=== PATIENT | female | born 1945 | race Caucasian/White ===

== ENCOUNTER 2017-08-11 00:02 | Inpatient (IN) | payer MEDICARE, OTHER ==
[2017-08-11] MEDS ORDERED: NS 0.9% 1000 ML* 1,000 ML IV ONE (01:25)
[2017-08-11 01:48] LABS: ABS Basophils 0.1 10^3/ul (0-0.2); ABS Eosinophils 0.1 10^3/ul (0-0.6); ABS Monocytes 0.8 10^3/ul (0-0.8); ABS Neutrophils 9.4 10^3/ul (1.5-7.7); ABS Nucleated RBC 0 10^3/ul; Eosinophil % 1.2 % (0-6); Hematocrit 46 % (35-47); Hemoglobin 15.2 g/dl (12.0-16.0); Lymphocyte % 15.8 % (25-47); Mean Corpuscular HGB Conc 33 g/dl (31-36); Mean Corpuscular Hemoglobin 28 pg (27-31); Mean Corpuscular Volume 85 fL (80-97); Mean Platelet Volume 9 um3 (7.4-10.4); Nucleated Red Blood Cells % 0.2; Platelet Count 385 10^3/ul (150-450); Red Blood Count 5.46 10^6/ul (4.0-5.4); Red Cell Distribution Width 15 % (10.5-15); White Blood Count 12.4 10^3/ul (3.5-10.8)
[2017-08-11 01:58] LABS: EGFR Non-African American 58.3 (>60)
[2017-08-11] MEDS ORDERED: Clindamycin 600 MG IVPREMIX(* 600 MG/50 ML SDV IV ONE (02:08)
[2017-08-11] MEDS ORDERED: Senna TAB PO PRN (03:27)
[2017-08-11] MEDS ORDERED: Al Hydrox/Mg Hydrox/Simet LIQ* 30 ML UDC PO PRN (03:27)
[2017-08-11] MEDS ORDERED: Docusate CAP* 100 MG PO PRN (03:27)
[2017-08-11] MEDS ORDERED: Ondansetron INJ* 2 MG/ML VIAL IV PRN (03:27)
[2017-08-11] MEDS ORDERED: Acetaminophen TAB* 325 MG PO PRN (03:27)
[2017-08-11] MEDS ORDERED: oxyCODONE/Acetamin 5/325 MG* TAB PO PRN (03:27)
[2017-08-11] MEDS ORDERED: NS 0.9% 1000 ML* 1,000 ML IV SCH (03:30)
[2017-08-11] MEDS ORDERED: Dextrose 50% Syringe 50 ML* 25 GM/50 ML SYRINGE IV PUSH PRN ×2 (03:32→11:38)
[2017-08-11] MEDS ORDERED: Insulin GLARGINE(*) 1 UNITS UNIT SUBCUT SCH (04:00)
[2017-08-11] MEDS ORDERED: Iodixanol* (CONTRAST) 320 MG/ML 100 ML SDV IV ONE (04:51)
--- NOTE | 2017-08-11 06:01 | HP ---
CC: Dr. Bhavya Saavedra * HISTORY AND PHYSICAL: DATE OF ADMISSION: 08/11/17 TIME OF EVALUATION: 0300. PRIMARY CARE PHYSICIAN: Bhavya Saavedra MD CHIEF COMPLAINT: Fall and unable to get up. HISTORY OF PRESENT ILLNESS: This is a 71-year-old female with a past medical history of diabetes, getting worked up for Parkinson's, who states she fell last Monday on the when she slid out of bed and she was unable to get up. She states that she has problems when she falls as she is not able to get up. She is not sure how she ended up here. She thinks her friends were checking on her and calling her and eventually the police broken and found her on the floor. When she arrived to the emergency room, she was covered in stool and urine and had multiple red broken down areas on her skin. She is complaining of shortness of breath. No chest pain. No nausea or vomiting. She said she had diarrhea earlier in the week and she states all her joints have very stiff diffusely. When asked why she uses a scooter and walker to ambulate, she states she is not sure; it has been going on for the past few weeks and the primary is working on for Parkinson's disease. In the emergency room, the patient had labs, EKG and was given 1 L of fluid and clindamycin 600 mg and was referred to the hospitalist service for further evaluation. PAST MEDICAL HISTORY: Diabetes. MEDICATIONS: The patient states she takes glipizide and metformin and not sure about her other medications. ALLERGIES: SULFA ANTIBIOTICS. FAMILY HISTORY: Reviewed and noncontributory. SOCIAL HISTORY: The patient lives alone. She ambulates with a walker and uses a scooter. No history of smoking, alcohol, or illicit drug use. Her healthcare proxy is her friend, Bijal Ibrahim, who is her friend. Code status is full code. REVIEW OF SYSTEMS: A 14-point review of systems as mentioned in the HPI, otherwise negative. PHYSICAL EXAMINATION GENERAL: No acute distress, noted belly breathing. VITAL SIGNS: Temp 97.1, pulse rate 118, respiratory rate 18, oxygen saturation 95% on room air, and blood pressure 145/90. HEENT: Head: Normocephalic. Pupils equal and reactive, anicteric. Oropharynx : Mucous membranes dry. NECK: Supple. No lymphadenopathy. RESPIRATORY: Diminished breath sounds. No wheezes, rhonchi, or rales. CARDIAC: Tachycardia. Soft systolic murmur heard throughout. ABDOMEN: Morbidly obese, soft, nondistended. EXTREMITIES: The patient with bilateral edema, erythema, and excoriated lesions bilaterally in lower extremity on her elbows, back of her thighs, and her abdomen. She also has significant erythema in her intertriginous areas under her breast and under her groin region. NEUROLOGIC: She is alert and oriented x3. She does have subtle weakness in her right upper and lower extremity. The patient with a noted resting tremor. LABORATORY DATA: White count 12.4, hemoglobin 15.2, hematocrit 46, platelets 385. Sodium 137, potassium 4.3, chloride 101, bicarb 24, BUN 33, creatinine 0.95 , lactate 2.6, glucose 335. CK is 300. RADIOGRAPHIC DATA: EKG shows sinus tachycardia with artifact with a baseline tremor. Head CT non-officially read, no obvious bleed on my exam, but significant atrophy noted. ASSESSMENT: This is a 71-year-old female with past medical history of diabetes , who presents to the emergency room after having a fall after sliding out of bed on the 6th, was unable to get up since then, was found to have multiple areas of skin breakdown likely cellulitis, shortness of breath, and some right- sided weakness. 1. Fall. Assessment: It appears the patient does have some debility using a walker and a scooter and has issues with getting up likely also due to her morbid obesity. I am concerned for possibility of stroke, also if she has developed a pulmonary emboli while lying there for several days, not mobile and she also has findings of lower extremity cellulitis with significant skin breakdown. Also waiting on a followup on her UA to check for urinary tract infection. Plan: We will admit her to telemetry. We will check CTA of the chest to rule out a pulmonary embolism and an MRI of the brain and I order PT/ OT. Discussed with the patient is likely going to need subacute rehab. We will start her on clindamycin for cellulitis coverage and follow up on her UA. Repeat labs including a CK and start her on nystatin as well. 2. Chronic medical problems. Diabetes. The patient is hyperglycemia here. We will give her another liter of fluid. Placed her on lispro and Lantus. Check a hemoglobin A1c on oral agents. 3. Do med rec and order prescriptions as indicated. 4. FEN and DVT prophylaxis. The patient's score is high risk. We will place her on heparin subcu t.i.d. We will switch her over to full anticoagulation if her CT is positive for pulmonary embolism. 5. Code status is full code. PATIENT TIME: Greater than 60 minutes spent doing the history and physical, more than half the time was spent in direct patient contact. [id number]/[facility] #: [id number] JOSE
[2017-08-11 06:45] LABS: INR 1.07 (0.77-1.02)
[2017-08-11] MEDS: NS 0.9% 1000 ML* 1,000 ML IV ONE ×2 (07:09→07:14)
--- NOTE | 2017-08-11 08:14 | RAD ---
INDICATION: Confusion. COMPARISON: There are no prior studies available for comparison. TECHNIQUE: Contiguous axial sections of the brain were obtained from the skull base to the vertex without contrast. FINDINGS: The ventricles are enlarged slightly out of portion to the cisterns and sulci although there is atrophy within the cisterns and sulci. These findings are likely secondary to atrophy although the possibility of normal pressure hydrocephalus cannot be excluded. There are small areas of decreased attenuation is present within the subcortical and periventricular white matter most consistent with chronic small vessel ischemic changes. No other focal abnormality or mass effect is seen. There is no evidence for hemorrhage. No significant focal osseous abnormality is seen. The visualized portion of the paranasal sinuses and mastoid air cells appear clear. IMPRESSION: 1. NO EVIDENCE FOR ACUTE FINDING. 2. ATROPHY AND FINDINGS CONSISTENT WITH CHRONIC SMALL VESSEL ISCHEMIC CHANGES. 3. VENTRICLES ENLARGED SLIGHTLY OUT OF PORTION TO THE CISTERNS AND SULCI RAISING THE POSSIBILITY OF NORMAL PRESSURE HYDROCEPHALUS. RECOMMEND CLINICAL CORRELATION.
--- NOTE | 2017-08-11 08:26 | RAD ---
Indication: Syncope, evaluate for pulmonary embolus. Contrast: Administered 96.3 ml of VISAPAQUE 320 mg/ml CTA of the chest was performed without IV contrast administration. Coronal and sagittal reconstructed images were obtained. The pulmonary arterial tree is well opacified. There are no filling defects present to suggest pulmonary embolus. Small pretracheal lymph nodes are noted. No hilar adenopathy is noted. The heart demonstrates no pericardial effusion. The pulmonary arterial tree is well opacified. There are no filling defects present to suggest pulmonary embolus. The distal pulmonary arteries are limited due to body habitus and motion artifact. The aorta demonstrates no evidence of aortic dissection. There is enlarged lower pole of the right lobe of the thyroid likely representing a nodule. Correlation with ultrasound may be helpful. The lung neal demonstrate no alveolar consolidation. No pleural fluid is identified. No pleural fluid is identified. The visualized abdominal organs demonstrates cholelithiasis. No biliary duct dilatation is noted. IMPRESSION: No definite pulmonary embolus is noted. No evidence of aortic dissection is present. Cholelithiasis without evidence of biliary duct dilatation.
[2017-08-11] MEDS: Heparin VIAL(*) 5000 UNITS/ML VIAL (FIVE THOUSAND) SUBCUT SCH ×3 (09:05→21:14)
[2017-08-11] MEDS: Insulin LISPRO* 1 UNITS UNIT SUBCUT SCH ×5 (10:10→21:47)
[2017-08-11 11:19] LABS: ABS Basophils 0.1 10^3/ul (0-0.2); ABS Eosinophils 0.1 10^3/ul (0-0.6); ABS Lymphocytes 2.2 10^3/ul (1.0-4.8); ABS Neutrophils 9.7 10^3/ul (1.5-7.7); ABS Nucleated RBC 0 10^3/ul; Eosinophil % 1.1 % (0-6); Hematocrit 40 % (35-47); Hemoglobin 13.2 g/dl (12.0-16.0); Lymphocyte % 16.8 % (25-47); Mean Corpuscular HGB Conc 33 g/dl (31-36); Mean Corpuscular Hemoglobin 28 pg (27-31); Mean Corpuscular Volume 85 fL (80-97); Mean Platelet Volume 9 um3 (7.4-10.4); Nucleated Red Blood Cells % 0.1; Platelet Count 336 10^3/ul (150-450); Red Blood Count 4.74 10^6/ul (4.0-5.4); Red Cell Distribution Width 15 % (10.5-15); White Blood Count 13.2 10^3/ul (3.5-10.8)
[2017-08-11] MEDS ORDERED: Metoprolol Tartrate IV* 1 MG/ML 5 ML VIAL IV PRN (11:37)
[2017-08-11 11:39] LABS: EGFR Non-African American 56.9 (>60)
[2017-08-11] MEDS ORDERED: Insulin LISPRO* 1 UNITS UNIT SUBCUT ONE (12:20)
[2017-08-11] MEDS: Clindamycin 600 MG IVPREMIX(* 600 MG/50 ML SDV IV SCH ×2 (12:22→18:59)
[2017-08-11] MEDS: Diltiazem TAB* 60 MG PO SCH ×2 (12:25→17:26)
--- NOTE | 2017-08-11 12:57 | RAD ---
INDICATION: Right shoulder injury. TECHNIQUE: 4 views of the right shoulder were obtained. FINDINGS: The bones are in normal alignment. No fracture is seen. There are small calcifications adjacent to the superior lateral aspect of the humeral head. There is mild to moderate osteoarthritic change in the acromioclavicular joint. IMPRESSION: NO EVIDENCE OF FRACTURE.
--- NOTE | 2017-08-11 13:10 | PN ---
Subjective Date of Service: 08/11/17 Interval History: Pt is a very vague historian. She states that she fell 6 days ago and spent the last 6 days at home on the floor not eating and drinking. Suspect the timeframe ma be different Pt c/o mobility issues and falls x 1 year, saw a neurologist in [place] who did not recommend any medication, but suspected Parkinson's. Pt still drives but admits to being forgetful. Objective Active Medications: Acetaminophen (Tylenol Tab*) 650 mg PO Q4H PRN PRN Reason: FEVER/PAIN Al Hydrox/Mg Hydrox/Simethicone (Maalox Plus*) 30 ml PO Q6H PRN PRN Reason: INDIGESTION Dextrose (D50w Syringe 50 Ml*) 12.5 gm IV PUSH .FOR FS < 60 - SS PRN PRN Reason: FS < 60 Dextrose (D50w Syringe 50 Ml*) 12.5 gm IV PUSH .FOR FS < 60 - SS PRN PRN Reason: FS < 60 Diltiazem HCl (Cardizem Tab*) 60 mg PO Q6HR [facility] Last Admin: 08/11/17 12:25 Dose: 60 mg Docusate Sodium (Colace Cap*) 100 mg PO BID PRN PRN Reason: CONSTIPATION Heparin Sodium (Porcine) (Heparin Vial(*)) 5,000 units SUBCUT Q8HR [facility] Last Admin: 08/11/17 09:05 Dose: Not Given Clindamycin HCl/Dextrose (Cleocin 600 Mg Ivpremix(*) Sdv) 600 mg in 50 mls @ 100 mls/hr IV Q8H [facility] Last Admin: 08/11/17 12:22 Dose: 100 mls/hr Insulin Glargine (Lantus(*)) 20 units SUBCUT Q24H [facility] Insulin Human Lispro (Humalog*) 0 units SUBCUT ACHS [facility] PRN Reason: Protocol Last Admin: 08/11/17 12:25 Dose: 15 units Metoprolol Tartrate (Lopressor Iv*) 5 mg IV Q6H PRN PRN Reason: HEART RATE/PULSE Nystatin (Nystatin Top Powder*) 1 applic TOPICAL TID [facility]ES[facility] Ondansetron HCl (Zofran Inj*) 4 mg IV Q4H PRN PRN Reason: NAUSEA/VOMITING Oxycodone/Acetaminophen (Percocet 5/325 Tab*) 1 tab PO Q4H PRN PRN Reason: Pain Senna (Senokot Tab*) 1 tab PO BID PRN PRN Reason: CONSTIPATION Vital Signs - 8 hr 08/11/17 08/11/17 08/11/17 05:15 07:28 08:00 Temperature 98.6 F 98.6 F Pulse Rate 125 124 Respiratory 18 18 18 Rate Blood Pressure 144/71 138/66 (mmHg) O2 Sat by Pulse 95 96 95 Oximetry 08/11/17 11:27 Temperature 99.3 F Pulse Rate 134 Respiratory 20 Rate Blood Pressure 145/68 (mmHg) O2 Sat by Pulse 93 Oximetry Oxygen Devices in Use Now: None Appearance: 71 yo F in nAD, AAOx2, doesn't know the exact date Eyes: No Scleral Icterus, PERRLA Ears/Nose/Mouth/Throat: NL Teeth, Lips, Gums, Mucous Membranes Moist Neck: NL Appearance and Movements; NL JVP, Trachea Midline Respiratory: Symmetrical Chest Expansion and Respiratory Effort, Clear to Auscultation Cardiovascular: NL Sounds; No Murmurs; No JVD, - - tachy, regular Abdominal: NL Sounds; No Tenderness; No Distention, No Hepatosplenomegaly Lymphatic: No Cervical Adenopathy Extremities: No Clubbing, Cyanosis, - - b/l pedal edema +1 Skin: No Nodules or Sclerosis, - - obrasions on b/l LE's, on r knee 5 cm obrasion covered with eschar with surrounding cellulitis. Sheree intertrigo in abd folds Neurological: NL Muscle Strength and Tone, - - limit in ROM in R shoulder due to pain, can abduct only to 60 degrees. [place] [facility] clear, CN2-12 - intact, wide and unsteady gait Result Diagrams: 08/11/17 11:04 08/11/17 11:04 Assess/Plan/Problems-Billing Assessment: 71 yo F with h/o obesity, recent falls (evaluation by neurology in 11/2016-doubted NPH, MRI also done at that time), HTN, DM2 presents after a fall with cellulitis. Pt notes that she had been unsteady forgetful, and incontinent of urine in the past several months. - Patient Problems (1) Falls Comment: Falls with incontinence and forgetfulness suggest NPH. CT brain questions NPH. Asked Dr. Kirti to see in consult cont PT/OT (2) DM2 (diabetes mellitus, type 2) Comment: Uncontrolled, at home on metformin and glipizide will cont Lantus and ISS for now. Restart glipizide in aM (3) Tachycardia Comment: ? A. flutter Echo pending will check another EKG Started Cardizem and Lopressor. At home was on ACEI only (4) Cellulitis of knee, right Comment: source is abrasion after a fall cont clindamycin (5) DVT prophylaxis Comment: HSQ Status and Disposition: inpatient
[2017-08-11] MEDS: Nystatin TOP POWDER* 15 GM BTL TOPICAL SCH ×3 (15:10→22:14)
[2017-08-11] MEDS: Insulin GLARGINE(*) 1 UNITS UNIT SUBCUT SCH (15:11)
[2017-08-11] MEDS: Citalopram TAB* 40 MG PO SCH (16:10)
--- NOTE | 2017-08-11 16:17 | RAD ---
Indication: Stroke. Sagittal and axial T1, axial T2, diffusion and susceptibility weighted images of the brain were obtained. Ventricular structures are midline. No midline shift is noted. There is central and cortical atrophy noted. No restriction of diffusion is noted. Paranasal sinuses are otherwise unremarkable. The orbits are unremarkable. Periventricular signal abnormalities are noted without restriction of diffusion. This is due to chronic ischemic White matter change. Susceptibility weighted images demonstrates no evidence of susceptibility weighted artifact. There is some minimal fluid in the ethmoid air cells. IMPRESSION: Chronic ischemic White matter change. Central and cortical atrophy. No restriction of diffusion is noted to suggest acute stroke.
--- NOTE | 2017-08-11 16:55 | ECHO ---
Patient: LOKESH MOCTEZUMA [facility] Rec#: [id number] : 1945 Date: 08/11/2017 Age: 71y Height: 162.6 cm / 64.0 in Weight: 109.3 kg / 240.9 lbs Sex: F BSA: 2.1 Room#: [facility] Admit Date#: 08/11/2017 Type: Inpatient Referring: Josie Howard MD Reading: George Aldana MD Surgical Asst: Nyasia Terry RN RDCS CC: Bhavya Saaverda MD Transthoracic Echocardiogram Indication: Tachycardia, systolic murmur BP: 138/66 HR: 113 Rhythm: Tachycardia Findings History: DM, HTN, morbid obesity Technical Comments: The study is technically limited due to patient body habitus. The study was technically limited due to the patient's inability to lay in the left lateral decubitus position. Completed at 1625. Left Ventricle: The left ventricular chamber size is decreased. Mild concentric left ventricular hypertrophy is observed. Global left ventricular wall motion and contractility are within normal limits. The left ventricle appears hyperdynamic. The estimated ejection fraction is greater than 65%. There is an E to A reversal in the mitral valve flow pattern suggestive of diastolic dysfunction. Left Atrium: The left atrial chamber size is normal. Right Ventricle: The right ventricular cavity size is normal. The right ventricular global systolic function is hyperdynamic. Right Atrium: The right atrium is mildly dilated. Aortic Valve: The aortic valve structure is not well visualized. The aortic valve leaflets are mildly thickened. There is no evidence of aortic regurgitation. There is no evidence of aortic stenosis. Mitral Valve: The mitral valve leaflets are mildly thickened. There is a trace of mitral regurgitation. Tricuspid Valve: The tricuspid valve structure is not well visualized. There is trace tricuspid regurgitation. Unable to estimate the right ventricular systolic pressure. Pulmonic Valve: The pulmonic valve structure is not well visualized. There is no evidence of pulmonic regurgitation. There is no pulmonic stenosis. Pericardium: There is no significant pericardial effusion. A pericardial fat pad is visualized. Aorta: The ascending aorta is not well visualized. There is no dilatation of the aortic arch. There is no dilation of the aortic root. Pulmonary Artery: The main pulmonary artery is not well visualized. Venous: The venous system is not well visualized. The inferior vena cava is not visualized. Conclusions The left ventricle appears hyperdynamic. The estimated ejection fraction is greater than 65%. Global left ventricular wall motion and contractility are within normal limits. The left ventricular chamber size is decreased. Mild concentric left ventricular hypertrophy is observed. There is an E to A reversal in the mitral valve flow pattern suggestive of diastolic dysfunction. The right ventricular global systolic function is hyperdynamic. The right atrium is mildly dilated. Functionally benign heart valves. There is no prior echocardiogram available to compare with at this time. Measurements Name Value Normal Range RVDdMajor (2D) 4.1 cm (2.2 - 4.4) RAd ISD 4CH 5.3 cm (3.4 - 4.9) RA (A4C)W 4.2 cm (2.9 - 4.6) IVSd (2D) 1.1 cm (0.6 - 1) LVPWd (2D) 1.1 cm (0.6 - 1) LVIDd (2D) 3.5 cm (3.6 - 5.4) Aortic Annulus 1.8 cm (1.4 - 2.6) Ao root diameter (2D) 3.3 cm (2.1 - 3.5) Aortic arch 2.7 cm (1.8 - 3.4) LA dimension (AP) 2D 2.6 cm (2.3 - 3.8) LAd ISD 4CH 5 cm (2.9 - 5.3) LA ISD 4CH W 4 cm (2.5 - 4.5) Name Value Normal Range MV E-wave Vmax 0.88 m/sec - MV deceleration time 233 msec - MV A-wave Vmax 1.2 m/sec - MV E:A ratio 0.7 ratio - LV septal e' Vmax 0.07 m/sec - LV lateral e' Vmax 0.08 m/sec - LV E:e' septal ratio 12.6 ratio - LV E:e' lateral ratio 11 ratio - Name Value Normal Range AV Vmax 1.8 m/sec - AV VTI 27.3 cm - AV peak gradient 13.4 mmHg - AV mean gradient 8.9 mmHg - LVOT Vmax 1.4 m/sec - LVOT VTI 17.4 cm - LVOT peak gradient 7.5 mmHg - LVOT mean gradient 3.5 mmHg - YVROSE Vmax 0.62 m/sec - Name Value Normal Range PV Vmax 0.73 m/sec -
[2017-08-11] MEDS: glipiZIDE TAB* 5 MG PO SCH (17:26)
[2017-08-11] MEDS: Carbidopa/Levodop 25/100 MG TAB(*) PO SCH (21:14)
[2017-08-12] MEDS: Diltiazem TAB* 60 MG PO SCH ×2 (00:26→05:42)
--- NOTE | 2017-08-12 01:30 | CONS ---
CC: Dr. Saavedra * CONSULTATION REPORT: DATE OF CONSULT: 08/11/17 LOCATION: She is an inpatient in room 450. REFERRING PHYSICIAN: Dr. Howard. CHIEF COMPLAINT: Falls, possible parkinsonism. HISTORY OF PRESENT ILLNESS: Guillermo Mustafa is a 71-year-old right-handed woman who was admitted late last night after she was found on the floor of her dwelling. She has had problems walking according to her friend, Shonda, for at least about 2 years. She had seen a neurologist in the [facility], according to Dr. Howard's conversation with Dr. Saavedra and also from the patient. Apparently Parkinson's disease and normal pressure hydrocephalus were both being considered as possibilities. She has never been tried on levodopa or other medicines specific for Parkinson's disease. She has been using a walker and I believe also a wheelchair for some length of time and has had problems with bladder control for about a year. She has decline in her cognition for about a year also according to her friend, Shonda. The patient denies headaches, change in vision, no problems with tremor. She has noticed to have head injuries, meningitis, intracranial hemorrhaging or stroke. PAST MEDICAL HISTORY: Notable for morbid obesity, diabetes, hypertension, hypothyroidism, chronic hip pain. FAMILY HISTORY: Negative for parkinsonism. REVIEW OF SYSTEMS: Negative for headaches, intestinal problems, change in vision, double vision, difficulty with speech. She does admit to some problems swallowing at times. She has not had any antipsychotic or antiemetic medication exposure that she is aware of. 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 She lives alone. She is a nonsmoker. She does not drink alcohol. PHYSICAL EXAM: She is morbidly obese and well-hydrated. Temperature most recently 99.3, temporally, blood pressure running 130 to 145 systolic/60 to 70 diastolic. Heart rate is about a 100 and seems regular, respiratory rate 20. Oxygen saturation is 93% on room air. She has abrasions on her right elbow and wound on her left and on both knees, worse on the right. There is tenderness to movement of the right knee. The legs are warm and somewhat red. Her heart is in a regular rhythm without murmurs. Carotid pulses are not felt but I do not hear any bruits. Oral mucosa is moist and atraumatic. Head is atraumatic. Neurologic Exam: Pupils react equally from 4 to 2 mm. Eye movements and visual neal are normal. Funduscopic exam reveals sharp discs bilaterally. Visual neal are full to confrontation. The patient's musculare is symmetric without hypomimia. Facial sensation to light touch is intact. Palate and tongue appear normal, the tongue protrudes weakly in the midline. Speech is soft but clear. Motor exam is hampered somewhat by pain on the right elbow and in the knees. There is no rigidity in the arms. As best as I can tell, there is no rigidity at least in the left leg although she guards the right one because of the discomfort. There is occasional mild low amplitude sustention tremor in the hands but there is no rest tremor. Finger taps are slow in both hands. I did not attempt to ambulate her. She could weakly raise her legs off the bed but not sustained on either side. Reflexes were absent although I did not test the right knee. Plantars were flexor bilaterally. Sensory exam is notable for mild vibratory loss in the feet and otherwise unremarkable. Mental status finds her to be mentally slow. She is a fair historian but seems to have difficulty recollecting historical details. She does not know all of her medications. Language is slow but fluent. DIAGNOSTIC STUDIES/LAB DATA: Laboratory studies included CT scan of the brain which I reviewed and it shows large ventricles. There is some atrophy but the ventricular enlargement seems out of proportion. She had an MRI of the brain and the interpretation of that is pending. It again reveals large ventricles, although the cerebral aqueduct is very thin and poorly seen. There is some apparent transependymal fluid and there is also some white matter changes consistent with chronic ischemic disease. There appears to be some hemosiderin deposition in the basal ganglia bilaterally. Other laboratory data notable for CBC with an elevated white blood cell count of 12.4 on admission, normal hemoglobulin and platelet count. Chemistries are notable for an elevated CPK of 300 when she was admitted, glucose was 335, glucose 390 this morning. Magnesium is little bit low at 1.8, calcium normal at 10.0. Liver enzymes are normal. IMPRESSION: It is hard to make a clear impression as I cannot really check her gait in her current state but imaging and the history are suggestive of normal pressure hydrocephalus. What I recommend at this point is a trial of carbidopa/ levodopa and I recommended it with patient explained potential side effects to include nausea, sedation, and involuntary movements. I will be going off service this evening and Dr. Petros Beatty will be covering and I will ask him to reassess her and discuss with the team whether or not a trial of therapeutic lumbar puncture might be worthwhile. [id number]/[facility] #: [id number] MTDD
[2017-08-12] MEDS: Clindamycin 600 MG IVPREMIX(* 600 MG/50 ML SDV IV SCH ×3 (03:23→19:34)
[2017-08-12] MEDS: Heparin VIAL(*) 5000 UNITS/ML VIAL (FIVE THOUSAND) SUBCUT SCH ×3 (05:42→20:18)
[2017-08-12] MEDS: Levothyroxine TAB* 100 MCG TAB PO SCH (05:42)
[2017-08-12] MEDS: Insulin LISPRO* 1 UNITS UNIT SUBCUT SCH ×4 (09:01→20:16)
[2017-08-12] MEDS: Citalopram TAB* 40 MG PO SCH (09:02)
[2017-08-12] MEDS: Carbidopa/Levodop 25/100 MG TAB(*) PO SCH ×3 (09:02→20:14)
[2017-08-12] MEDS: glipiZIDE TAB* 5 MG PO SCH ×2 (09:17→17:52)
[2017-08-12] MEDS: Nystatin TOP POWDER* 15 GM BTL TOPICAL SCH ×3 (09:18→20:19)
[2017-08-12] MEDS ORDERED: Diltiazem CD CAP* 240 MG PO ONE (11:39)
--- NOTE | 2017-08-12 11:43 | PN ---
Subjective Date of Service: 08/12/17 Interval History: Pt appears to be improving with mentation. She herself is not sure if there is any improvement after Sinemet started yesterday Objective Active Medications: Acetaminophen (Tylenol Tab*) 650 mg PO Q4H PRN PRN Reason: FEVER/PAIN Al Hydrox/Mg Hydrox/Simethicone (Maalox Plus*) 30 ml PO Q6H PRN PRN Reason: INDIGESTION Carbidopa/Levodopa (Sinemet 25/100 Tab(*)) 1 tab PO TID [facility] Last Admin: 08/12/17 09:02 Dose: 1 tab Citalopram Hydrobromide (Celexa Tab*) 40 mg PO DAILY [facility] Last Admin: 08/12/17 09:02 Dose: 40 mg Dextrose (D50w Syringe 50 Ml*) 12.5 gm IV PUSH .FOR FS < 60 - SS PRN PRN Reason: FS < 60 Docusate Sodium (Colace Cap*) 100 mg PO BID PRN PRN Reason: CONSTIPATION Glipizide (Glucotrol Tab*) 5 mg PO 0800,1700 [facility] Heparin Sodium (Porcine) (Heparin Vial(*)) 5,000 units SUBCUT Q8HR [facility] Last Admin: 08/12/17 05:42 Dose: 5,000 units Clindamycin HCl/Dextrose (Cleocin 600 Mg Ivpremix(*) Sdv) 600 mg in 50 mls @ 100 mls/hr IV Q8H [facility] Last Admin: 08/12/17 10:27 Dose: 100 mls/hr Insulin Glargine (Lantus(*)) 20 units SUBCUT Q24H [facility] Last Admin: 08/11/17 15:11 Dose: 20 units Insulin Human Lispro (Humalog*) 0 units SUBCUT ACHS [facility] PRN Reason: Protocol Last Admin: 08/12/17 09:01 Dose: 3 units Levothyroxine Sodium (Synthroid Tab*) 100 mcg PO DAILY@0600 [facility] Last Admin: 08/12/17 05:42 Dose: 100 mcg Metoprolol Tartrate (Lopressor Iv*) 5 mg IV Q6H PRN PRN Reason: HEART RATE/PULSE Nystatin (Nystatin Top Powder*) 1 applic TOPICAL TID [facility] Last Admin: 08/12/17 09:18 Dose: 1 applic Ondansetron HCl (Zofran Inj*) 4 mg IV Q4H PRN PRN Reason: NAUSEA/VOMITING Oxycodone/Acetaminophen (Percocet 5/325 Tab*) 1 tab PO Q4H PRN PRN Reason: Pain Senna (Senokot Tab*) 1 tab PO BID PRN PRN Reason: CONSTIPATION Vital Signs - 8 hr 08/12/17 08/12/17 08/12/17 04:25 07:41 08:00 Temperature 98.7 F 98.4 F Pulse Rate 93 88 Respiratory 16 20 18 Rate Blood Pressure 166/78 159/68 (mmHg) O2 Sat by Pulse 93 92 92 Oximetry Oxygen Devices in Use Now: None Appearance: 71 yo F in nAD, aAOx2, Eyes: No Scleral Icterus, PERRLA Ears/Nose/Mouth/Throat: NL Teeth, Lips, Gums, Mucous Membranes Moist Neck: NL Appearance and Movements; NL JVP, Trachea Midline Respiratory: Symmetrical Chest Expansion and Respiratory Effort, Clear to Auscultation Cardiovascular: NL Sounds; No Murmurs; No JVD, RRR Abdominal: NL Sounds; No Tenderness; No Distention, No Hepatosplenomegaly Lymphatic: No Cervical Adenopathy Extremities: No Clubbing, Cyanosis, - - +1 pitting edema b/l ankles Skin: No Nodules or Sclerosis, - - R knee abrasion with cellulitis improving Neurological: - - generalized weakness, no focal deficit Result Diagrams: 08/11/17 11:04 08/11/17 11:04 Assess/Plan/Problems-Billing Assessment: 71 yo F with h/o obesity, recent falls (evaluation by neurology in 11/2016-doubted NPH, MRI also done at that time), HTN, DM2 presents after a fall with cellulitis. Pt notes that she had been unsteady forgetful, and incontinent of urine in the past several months. - Patient Problems (1) Falls Comment: Falls with incontinence and forgetfulness suggest NPH. CT brain questions NPH. Asked Dr. Cotto to see in consult. Sinemet started on 08/11/17. no significant change noted . cont PT/OT (2) DM2 (diabetes mellitus, type 2) Comment: Uncontrolled, at home on metformin and glipizide will cont Lantus , glipizide and ISS (3) Tachycardia Comment: appeared to be sinus. Tx with Cardizem CD. HR down to 80's Echo shows EF 65 and no valvular abn. (4) Cellulitis of knee, right Comment: source is abrasion after a fall cont clindamycin (5) DVT prophylaxis Comment: HSQ Status and Disposition: inpatient
[2017-08-12] MEDS: Insulin GLARGINE(*) 1 UNITS UNIT SUBCUT SCH (13:05)
[2017-08-12] MEDS: Magnesium Oxide TAB* 400 MG PO SCH (15:01)
[2017-08-12 22:42] LABS: Urine Appearance Cloudy; Urine Blood 1+ (Negative); Urine Color Yellow; Urine Ketones Negative (Negative); Urine Protein 2+(100 mg/dL) (Negative); Urine Specific Gravity 1.025 (1.010-1.030); Urine Urobilinogen Positive (Negative)
--- NOTE | 2017-08-13 02:25 | PN ---
PROGRESS NOTE: DATE OF PROGRESS NOTE: 08/12/17 CURRENT LOCATION: 450, Bed 2. SUBJECTIVE: I reviewed her admission notes including the consultation by Dr. Cotto yesterday. I did speak with him last night about the patient. Briefly, she is a 71-year-old woman who was admitted on 08/11/17 after being found on the floor in her dwelling. She has had problems walking and per her friends, this apparently has been going on for sometime one to two years. She apparently saw a neurologist in the past who considered NPH versus Parkinson's disease, but no workup has done. Apparently she had never been tried on any parkinsonian medications. Apparently she has had some problems with bladder control as well memory issues. When I asked her today if she had problems with her bladder, she stated no. She did state that she was unable to ambulate at this time. Yesterday, Dr. Cotto started her on some Sinemet to see how she would respond. He also spoke with the admitting physician regarding the possibility of a spinal tap next week to evaluate for the possibility of normal pressure hydrocephalus. Overnight, she denies any new problems. She remains somewhat confused. I spoke with her nurse. She states that she seemed a little bit more alert and aware this morning. She recognized the nurse, but remains confused on the date and location. She denies any current pain, although she does have some ongoing pain in her right shoulder. It was not hurting at the time of my examination. She is resting comfortably in her bed. CURRENT MEDICATIONS: 1. Tylenol p.r.n. 2. Maalox p.r.n. 3. Sinemet 25/100 one p.o. t.i.d. 4. Celexa 40 mg daily. 5. Clindamycin. 6. Diltiazem 60 mg p.o. q.6 hours. 7. Colace. 8. Glipizide. 9. Heparin DVT prophylaxis. 10. Insulin. 11. Synthroid. 12. Lopressor p.r.n. 13. Zofran. 14. Percocet. 15. Senokot. OBJECTIVE: Vital Signs: Blood pressure 166/78 to 159/68, temperature of 98.4, pulse rate of 88, respiratory rate of 20, pulse ox 92%. General: She is a well - nourished, well-developed obese female. She is sitting in her hospital bed. She is pleasant. She is drinking coffee. HEENT: She is normocephalic, atraumatic. Sclerae are anicteric. Mucous membranes are moist. Oropharynx is clear. Neck: Supple. Chest: Clear to auscultation bilaterally. Cardiovascular: Regular rate and rhythm. Abdomen: Obese, nontender. Skin: She has abrasion on her right elbow and knees bilaterally. She also has some tenderness in her right shoulder with movement. Neurologic: She is awake. She is alert. She is oriented to person. Cranial Nerves: Pupils are equal, round, and reactive to light. Extraocular muscles are intact. Visual neal are full to confrontation. Her face appears symmetric. She has good facial expression. Tongue is midline. Palate raises symmetrically. Motor: She has some limited range of motion due to the pain in her extremities, but there is no obvious cogwheeling or rigidity. She has good strength in the upper extremities, 4+/5 bilaterally with some proximal weakness. Lower extremities limited movement, but she is able to lift against resistance in the legs bilaterally, proximally and distally. She has no tremor noted today. She has slow rapid alternating movements. Plantars were downgoing bilaterally. DTRs in the upper extremities were 2+, absent in the lower extremities. Sensory was generally intact throughout. I did not ambulate her today. LABORATORY DATA: She has no new lab work pending. White blood count of 13.2 yesterday. Her glucose 379 to 347 to 212 to 179. TSH was 2.16. No imaging done overnight. Her transthoracic echocardiogram yesterday showed an ejection fraction 65%. Mild concentric left ventricular hypertrophy, E:A reversal on the mitral valve, right ventricular global systolic function is hypodynamic, right atrium is mildly dilated, functionally benign heart valves. No prior echocardiogram available. Reviewed her MRI of the brain which shows atrophy which appears to be greater than would be expected and chronic white matter changes. PLAN: At this point, the working differential regarding her presentation is NPH versus possibility of an atypical Parkinson's presentation. She was started on Sinemet yesterday and per the nurse and per comparison of examination , she seems to have a little bit of improvement today. So, I am going to continue her Sinemet unchanged for the weekend. Plan is to talk with physical therapy on Monday and try to arrange a better full physical therapy examination and try to walk her out. I will be present at the time of that examination if possible. We are considering doing a spinal tap, although there are some caveats, her diabetes, her white count, her size, all give me pause regarding this test. It is a notoriously difficult evaluation and I am not clear at this point that it would change advisor whether she would be a good surgical candidate, but this is something that we will continue to monitor and discuss further. For now continue the Sinemet and watch her over the weekend. I will continue to follow her. [id number]/[facility] #: [id number] JOSE
[2017-08-13] MEDS: Clindamycin 600 MG IVPREMIX(* 600 MG/50 ML SDV IV SCH ×2 (03:06→11:38)
[2017-08-13] MEDS: Levothyroxine TAB* 100 MCG TAB PO SCH (05:57)
[2017-08-13] MEDS: Heparin VIAL(*) 5000 UNITS/ML VIAL (FIVE THOUSAND) SUBCUT SCH ×3 (05:58→21:55)
[2017-08-13 06:19] LABS: ABS Basophils 0.1 10^3/ul (0-0.2); ABS Eosinophils 0.4 10^3/ul (0-0.6); ABS Lymphocytes 2.6 10^3/ul (1.0-4.8); ABS Monocytes 0.6 10^3/ul (0-0.8); ABS Nucleated RBC 0 10^3/ul; Hematocrit 31 % (35-47); Hemoglobin 10.7 g/dl (12.0-16.0); Mean Corpuscular HGB Conc 34 g/dl (31-36); Mean Corpuscular Hemoglobin 29 pg (27-31); Mean Corpuscular Volume 83 fL (80-97); Mean Platelet Volume 9 um3 (7.4-10.4); Nucleated Red Blood Cells % 0.1; Platelet Count 195 10^3/ul (150-450); Red Blood Count 3.73 10^6/ul (4.0-5.4); Red Cell Distribution Width 15 % (10.5-15); White Blood Count 8.7 10^3/ul (3.5-10.8)
[2017-08-13 06:34] LABS: EGFR Non-African American 73.2 (>60)
[2017-08-13] MEDS ORDERED: Potassium Chlor TAB* 20 MEQ TAB.ER PO ONE (08:35)
[2017-08-13] MEDS: Insulin LISPRO* 1 UNITS UNIT SUBCUT SCH ×4 (08:35→21:54)
[2017-08-13] MEDS: Citalopram TAB* 40 MG PO SCH (08:43)
[2017-08-13] MEDS: Diltiazem CD CAP* 240 MG PO SCH (08:43)
[2017-08-13] MEDS: glipiZIDE TAB* 5 MG PO SCH ×2 (08:43→17:55)
[2017-08-13] MEDS: Carbidopa/Levodop 25/100 MG TAB(*) PO SCH ×3 (08:43→21:55)
[2017-08-13] MEDS: Magnesium Oxide TAB* 400 MG PO SCH (08:43)
[2017-08-13] MEDS: Nystatin TOP POWDER* 15 GM BTL TOPICAL SCH ×3 (08:51→22:14)
--- NOTE | 2017-08-13 11:50 | PN ---
Subjective Date of Service: 08/13/17 Interval History: Pt feels better, was able to walk with a walker today. Objective Active Medications: Acetaminophen (Tylenol Tab*) 650 mg PO Q4H PRN PRN Reason: FEVER/PAIN Al Hydrox/Mg Hydrox/Simethicone (Maalox Plus*) 30 ml PO Q6H PRN PRN Reason: INDIGESTION Carbidopa/Levodopa (Sinemet 25/100 Tab(*)) 1 tab PO TID [facility] Last Admin: 08/13/17 08:43 Dose: 1 tab Citalopram Hydrobromide (Celexa Tab*) 40 mg PO DAILY [facility] Last Admin: 08/13/17 08:43 Dose: 40 mg Dextrose (D50w Syringe 50 Ml*) 12.5 gm IV PUSH .FOR FS < 60 - SS PRN PRN Reason: FS < 60 Diltiazem HCl (Cardizem Cd Cap*) 240 mg PO DAILY [facility] Last Admin: 08/13/17 08:43 Dose: 240 mg Docusate Sodium (Colace Cap*) 100 mg PO BID PRN PRN Reason: CONSTIPATION Glipizide (Glucotrol Tab*) 5 mg PO 0800,1700 [facility] Last Admin: 08/13/17 08:43 Dose: 5 mg Heparin Sodium (Porcine) (Heparin Vial(*)) 5,000 units SUBCUT Q8HR [facility] Last Admin: 08/13/17 05:58 Dose: 5,000 units Clindamycin HCl/Dextrose (Cleocin 600 Mg Ivpremix(*) Sdv) 600 mg in 50 mls @ 100 mls/hr IV Q8H [facility] Last Admin: 08/13/17 11:38 Dose: 100 mls/hr Insulin Glargine (Lantus(*)) 20 units SUBCUT Q24H [facility] Last Admin: 08/12/17 13:05 Dose: 20 units Insulin Human Lispro (Humalog*) 0 units SUBCUT ACHS [facility] PRN Reason: Protocol Last Admin: 08/13/17 08:35 Dose: Not Given Levothyroxine Sodium (Synthroid Tab*) 100 mcg PO DAILY@0600 [facility] Last Admin: 08/13/17 05:57 Dose: 100 mcg Magnesium Oxide (Magox 400 Tab*) 400 mg PO DAILY [facility] Last Admin: 08/13/17 08:43 Dose: 400 mg Metoprolol Tartrate (Lopressor Iv*) 5 mg IV Q6H PRN PRN Reason: HEART RATE/PULSE Nystatin (Nystatin Top Powder*) 1 applic TOPICAL TID [facility] Last Admin: 08/13/17 08:51 Dose: 1 applic Ondansetron HCl (Zofran Inj*) 4 mg IV Q4H PRN PRN Reason: NAUSEA/VOMITING Oxycodone/Acetaminophen (Percocet 5/325 Tab*) 1 tab PO Q4H PRN PRN Reason: Pain Senna (Senokot Tab*) 1 tab PO BID PRN PRN Reason: CONSTIPATION Vital Signs - 8 hr 08/13/17 08/13/17 07:38 08:00 Temperature 98.1 F Pulse Rate 80 Respiratory 16 18 Rate Blood Pressure 141/60 (mmHg) O2 Sat by Pulse 94 94 Oximetry Oxygen Devices in Use Now: None Appearance: 71 yo F in nAD, AAOx2, better historian than previously Eyes: No Scleral Icterus, PERRLA Ears/Nose/Mouth/Throat: NL Teeth, Lips, Gums, Mucous Membranes Moist Neck: NL Appearance and Movements; NL JVP, Trachea Midline Respiratory: Symmetrical Chest Expansion and Respiratory Effort, Clear to Auscultation Cardiovascular: NL Sounds; No Murmurs; No JVD, RRR Abdominal: NL Sounds; No Tenderness; No Distention Lymphatic: No Cervical Adenopathy Extremities: No Clubbing, Cyanosis, - - b/l pedale edema -trace Skin: No Nodules or Sclerosis, - - R knee abrasion Neurological: - - generalized weakness-improving Result Diagrams: 08/13/17 05:39 08/13/17 05:39 Assess/Plan/Problems-Billing Assessment: 71 yo F with h/o obesity, recent falls (evaluation by neurology in 11/2016-doubted NPH, MRI also done at that time), HTN, DM2 presents after a fall with cellulitis. Pt notes that she had been unsteady forgetful, and incontinent of urine in the past several months. - Patient Problems (1) Falls Comment: Falls with incontinence and forgetfulness suggest NPH. CT brain questions NPH. Asked Dr. Cotto to see in consult. Sinemet started on 08/11/17. Pt appears to be improved today with mentation and mobility cont PT/OT (2) DM2 (diabetes mellitus, type 2) Comment: will cont Lantus , glipizide and ISS (3) Tachycardia Comment: appeared to be sinus. Tx with Cardizem CD. HR down to 80's Echo shows EF 65 and no valvular abn. (4) Cellulitis of knee, right Comment: source is abrasion after a fall clindamycin with be changed to Augmentin to complete 7 days tx (5) Blood bacterial culture positive Comment: For Staph simulans-possible contamination (6) DVT prophylaxis Comment: HSQ Status and Disposition: inpatient
[2017-08-13] MEDS: Insulin GLARGINE(*) 1 UNITS UNIT SUBCUT SCH (13:55)
[2017-08-13] MEDS: Amoxicillin/Clavulanate TAB* 500 MG PO SCH (21:55)
[2017-08-14] MEDS: Heparin VIAL(*) 5000 UNITS/ML VIAL (FIVE THOUSAND) SUBCUT SCH ×3 (06:40→21:29)
[2017-08-14] MEDS: Levothyroxine TAB* 100 MCG TAB PO SCH (06:40)
[2017-08-14] MEDS: glipiZIDE TAB* 5 MG PO SCH ×2 (08:03→18:01)
[2017-08-14] MEDS: Amoxicillin/Clavulanate TAB* 500 MG PO SCH ×2 (08:03→21:28)
[2017-08-14] MEDS: Insulin LISPRO* 1 UNITS UNIT SUBCUT SCH ×4 (08:03→21:28)
[2017-08-14] MEDS: Carbidopa/Levodop 25/100 MG TAB(*) PO SCH ×3 (08:03→21:29)
[2017-08-14] MEDS: Citalopram TAB* 40 MG PO SCH (08:03)
[2017-08-14] MEDS: Diltiazem CD CAP* 240 MG PO SCH (08:03)
[2017-08-14] MEDS: Magnesium Oxide TAB* 400 MG PO SCH (08:03)
--- NOTE | 2017-08-14 08:04 | PN ---
Subjective Date of Service: 08/14/17 - Progress Note Interval History: Overnight, no new issues. I spoke with a nurse who has been following her. He states that she tends to do worse as the day goes on. She seems to do better in the am. She denies any issues currently and states "I feel much better." She did ambulate with walker and assistance yesterday. She notes a mild tremor "at times." Objective Active Medications: Acetaminophen (Tylenol Tab*) 650 mg PO Q4H PRN PRN Reason: FEVER/PAIN Al Hydrox/Mg Hydrox/Simethicone (Maalox Plus*) 30 ml PO Q6H PRN PRN Reason: INDIGESTION Amoxicillin/Clavulanate Potassium (Augmentin Tab*) 500 mg PO BID [facility] Stop: 08/17/17 23:59 Last Admin: 08/13/17 21:55 Dose: 500 mg Carbidopa/Levodopa (Sinemet 25/100 Tab(*)) 1 tab PO TID [facility] Last Admin: 08/13/17 21:55 Dose: 1 tab Citalopram Hydrobromide (Celexa Tab*) 40 mg PO DAILY [facility] Last Admin: 08/13/17 08:43 Dose: 40 mg Dextrose (D50w Syringe 50 Ml*) 12.5 gm IV PUSH .FOR FS < 60 - SS PRN PRN Reason: FS < 60 Diltiazem HCl (Cardizem Cd Cap*) 240 mg PO DAILY [facility] Last Admin: 08/13/17 08:43 Dose: 240 mg Docusate Sodium (Colace Cap*) 100 mg PO BID PRN PRN Reason: CONSTIPATION Glipizide (Glucotrol Tab*) 5 mg PO 0800,1700 [facility] Last Admin: 08/13/17 17:55 Dose: 5 mg Heparin Sodium (Porcine) (Heparin Vial(*)) 5,000 units SUBCUT Q8HR [facility] Last Admin: 08/14/17 06:40 Dose: 5,000 units Insulin Glargine (Lantus(*)) 20 units SUBCUT Q24H [facility] Last Admin: 08/13/17 13:55 Dose: 20 units Insulin Human Lispro (Humalog*) 0 units SUBCUT ACHS [facility] PRN Reason: Protocol Last Admin: 08/13/17 21:54 Dose: 3 units Levothyroxine Sodium (Synthroid Tab*) 100 mcg PO DAILY@0600 [facility] Last Admin: 08/14/17 06:40 Dose: 100 mcg Magnesium Oxide (Magox 400 Tab*) 400 mg PO DAILY [facility] Last Admin: 08/13/17 08:43 Dose: 400 mg Metoprolol Tartrate (Lopressor Iv*) 5 mg IV Q6H PRN PRN Reason: HEART RATE/PULSE Nystatin (Nystatin Top Powder*) 1 applic TOPICAL TID [facility] Last Admin: 08/13/17 22:14 Dose: 1 applic Ondansetron HCl (Zofran Inj*) 4 mg IV Q4H PRN PRN Reason: NAUSEA/VOMITING Oxycodone/Acetaminophen (Percocet 5/325 Tab*) 1 tab PO Q4H PRN PRN Reason: Pain Senna (Senokot Tab*) 1 tab PO BID PRN PRN Reason: CONSTIPATION Vital Signs 08/13/17 08/13/17 08/13/17 08:00 12:21 16:17 Temperature 98.3 F 98.0 F Pulse Rate 77 86 Respiratory 18 16 20 Rate Blood Pressure 140/58 132/64 (mmHg) O2 Sat by Pulse 94 95 96 Oximetry 08/13/17 08/13/17 08/13/17 19:36 20:00 23:19 Temperature 98.3 F Pulse Rate 79 Respiratory 16 16 16 Rate Blood Pressure 155/63 (mmHg) O2 Sat by Pulse 96 96 Oximetry 08/14/17 08/14/17 08/14/17 00:38 04:22 04:35 Temperature 98.3 F 98.2 F Pulse Rate 76 70 65 Respiratory 20 20 Rate Blood Pressure 160/68 183/72 151/62 (mmHg) O2 Sat by Pulse 96 96 95 Oximetry 08/14/17 08/14/17 07:34 07:35 Temperature 98.4 F Pulse Rate 64 Respiratory 18 Rate Blood Pressure 176/65 182/88 (mmHg) O2 Sat by Pulse 97 Oximetry Oxygen Devices in Use Now: None Neurology Exam: General: HEENT: Normocephelic/atraumstic, sclera anicteric, mucous membranes moist Neck: Supple Chest: Clear to auscultation bilaterally Cardiovascular: Regular rate and rhythm without murmurs, rubs, gallops Abdomen: Soft, obese, nontender Extremities: No cyanosis, skin warm and dry Neurological Findings: Awake, Alert, Oriented x3 (person, 2018, July, , Monday, [facility]) Speech: fluent without dysarthria, repetition intact Cranial Nerve: PEERL, EOM intact, VFF to confrontation, no nystagmus, face symmetric bilaterally, facial sensation intact, hearing intact to finger rub bilaterally, palate elevates symmetrically, tongue midline, SCM and Trapezius 5/ 5. 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 She does have a history of memory issues, waxing and waning, as well as some bladder incontinence. She also has a history of gait abnormality and mild resting tremor in the RUE. She was started on Sinemet on Monday, August 11. Since that time has had some clinical improvement Differential includes: atypical PD, NPH, other dementia, neuropathy, deconditioning At this point, she seems to be clinically better. She is completely Alert and Oriented this am. She walked with walker yesterday and was able to help with transfers. Whether the improvement is related to Sinemet or improvement with time is unclear to me but I am inclined to hold on LP at this time (the patient agrees) and continue Sinemet for atypical PD. I spoke with Hospitalist and we are going to continue to watch her for improvement on Sinemet. From a neurologic perspective I would plan to continue Sinemet at time of discharge. I will be happy to see the patient in follow up as an outpatient as well.
[2017-08-14] MEDS: Ramipril CAP* 5 MG PO SCH (10:11)
[2017-08-14] MEDS: Nystatin TOP POWDER* 15 GM BTL TOPICAL SCH ×3 (11:22→21:29)
[2017-08-14] MEDS: Insulin GLARGINE(*) 1 UNITS UNIT SUBCUT SCH (12:13)
[2017-08-14] MEDS ORDERED: diPHENhydraMINE PO* 25 MG PO PRN (14:45)
--- NOTE | 2017-08-14 15:21 | PN ---
Subjective Date of Service: 08/14/17 Interval History: Pt feels well, but still c/o generalized weakness Objective Active Medications: Acetaminophen (Tylenol Tab*) 650 mg PO Q4H PRN PRN Reason: FEVER/PAIN Al Hydrox/Mg Hydrox/Simethicone (Maalox Plus*) 30 ml PO Q6H PRN PRN Reason: INDIGESTION Amoxicillin/Clavulanate Potassium (Augmentin Tab*) 500 mg PO BID [facility] Stop: 08/17/17 23:59 Last Admin: 08/14/17 08:03 Dose: 500 mg Carbidopa/Levodopa (Sinemet 25/100 Tab(*)) 1 tab PO TID [facility] Last Admin: 08/14/17 14:21 Dose: 1 tab Citalopram Hydrobromide (Celexa Tab*) 40 mg PO DAILY [facility] Last Admin: 08/14/17 08:03 Dose: 40 mg Dextrose (D50w Syringe 50 Ml*) 12.5 gm IV PUSH .FOR FS < 60 - SS PRN PRN Reason: FS < 60 Diltiazem HCl (Cardizem Cd Cap*) 240 mg PO DAILY [facility] Last Admin: 08/14/17 08:03 Dose: 240 mg Docusate Sodium (Colace Cap*) 100 mg PO BID PRN PRN Reason: CONSTIPATION Glipizide (Glucotrol Tab*) 5 mg PO 0800,1700 [facility] Last Admin: 08/14/17 08:03 Dose: 5 mg Heparin Sodium (Porcine) (Heparin Vial(*)) 5,000 units SUBCUT Q8HR [facility] Last Admin: 08/14/17 14:21 Dose: 5,000 units Insulin Glargine (Lantus(*)) 20 units SUBCUT Q24H [facility] Last Admin: 08/14/17 12:13 Dose: 20 units Insulin Human Lispro (Humalog*) 0 units SUBCUT ACHS [facility] PRN Reason: Protocol Last Admin: 08/14/17 12:13 Dose: 2 units Levothyroxine Sodium (Synthroid Tab*) 100 mcg PO DAILY@0600 [facility] Last Admin: 08/14/17 06:40 Dose: 100 mcg Magnesium Oxide (Magox 400 Tab*) 400 mg PO DAILY [facility] Last Admin: 08/14/17 08:03 Dose: 400 mg Metoprolol Tartrate (Lopressor Iv*) 5 mg IV Q6H PRN PRN Reason: HEART RATE/PULSE Nystatin (Nystatin Top Powder*) 1 applic TOPICAL TID [facility] Last Admin: 08/14/17 14:22 Dose: 1 applic Ondansetron HCl (Zofran Inj*) 4 mg IV Q4H PRN PRN Reason: NAUSEA/VOMITING Oxycodone/Acetaminophen (Percocet 5/325 Tab*) 1 tab PO Q4H PRN PRN Reason: Pain Ramipril (Altace Cap*) 5 mg PO DAILY [facility] Last Admin: 08/14/17 10:11 Dose: 5 mg Senna (Senokot Tab*) 1 tab PO BID PRN PRN Reason: CONSTIPATION Vital Signs - 8 hr 08/14/17 08/14/17 08/14/17 07:34 07:35 08:00 Temperature 98.4 F Pulse Rate 64 Respiratory 18 18 Rate Blood Pressure 176/65 182/88 (mmHg) O2 Sat by Pulse 97 97 Oximetry 08/14/17 12:10 Temperature 98.0 F Pulse Rate 72 Respiratory 20 Rate Blood Pressure 144/76 (mmHg) O2 Sat by Pulse 96 Oximetry Oxygen Devices in Use Now: None Appearance: 71 yo F in nAD, AAOx3 Eyes: No Scleral Icterus, PERRLA Ears/Nose/Mouth/Throat: NL Teeth, Lips, Gums, Mucous Membranes Moist Neck: NL Appearance and Movements; NL JVP, Trachea Midline Respiratory: Symmetrical Chest Expansion and Respiratory Effort, Clear to Auscultation Cardiovascular: NL Sounds; No Murmurs; No JVD, RRR Abdominal: NL Sounds; No Tenderness; No Distention Lymphatic: No Cervical Adenopathy Extremities: No Edema, No Clubbing, Cyanosis Skin: No Nodules or Sclerosis, - - R knee cellulitis resolving, eschar covered abrasion at 5 x3 cm Neurological: Alert and Oriented x 3, - - generalized weakness, no focal deficit Result Diagrams: 08/13/17 05:39 08/13/17 05:39 Assess/Plan/Problems-Billing 71 year old with a history of DM, HTN, obesity, falls with prior neurologic evaluation, at that time 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 She does have a history of memory issues, waxing and waning, as well as some bladder incontinence. She also has a history of gait abnormality and mild resting tremor in the RUE. She was started on Sinemet on August 11. Since that time has had some clinical improvement - Patient Problems (1) Falls Comment: Falls with incontinence and forgetfulness suggest NPH. CT brain questions NPH. Asked Dr. Cotto to see in consult. Sinemet started on 08/11/17. Pt appears to be improved with mentation and mobility. As per D/w Dr. Beatty, will cont Simemet. d/c to PMRU tomorrow (2) DM2 (diabetes mellitus, type 2) Comment: will cont Lantus , glipizide and ISS restarting home metformin (3) Tachycardia Comment: appeared to be sinus. Tx with Cardizem CD. HR down to 80's Echo shows EF 65 and no valvular abn. (4) Cellulitis of knee, right Comment: source is abrasion after a fall clindamycin was changed to Augmentin to complete 7 days tx (5) Blood bacterial culture positive Comment: For Staph simulans-possible contamination (6) DVT prophylaxis Comment: HSQ Status and Disposition: inpatient, PMRU tomorrow
[2017-08-14] MEDS: metFORMIN* 1,000 MG TAB PO SCH (21:29)
[2017-08-15] MEDS: Heparin VIAL(*) 5000 UNITS/ML VIAL (FIVE THOUSAND) SUBCUT SCH ×2 (05:23→13:39)
[2017-08-15] MEDS: Levothyroxine TAB* 100 MCG TAB PO SCH (05:23)
[2017-08-15 08:44] VITALS: BP 177/73
[2017-08-15] MEDS ORDERED: Diltiazem CD CAP* 180 MG PO SCH (08:56)
[2017-08-15] MEDS: Amoxicillin/Clavulanate TAB* 500 MG PO SCH (09:01)
[2017-08-15] MEDS: glipiZIDE TAB* 5 MG PO SCH (09:01)
[2017-08-15] MEDS: Carbidopa/Levodop 25/100 MG TAB(*) PO SCH ×2 (09:01→13:39)
[2017-08-15] MEDS: Insulin LISPRO* 1 UNITS UNIT SUBCUT SCH ×2 (09:01→12:19)
[2017-08-15] MEDS: Nystatin TOP POWDER* 15 GM BTL TOPICAL SCH (09:02)
[2017-08-15] MEDS: metFORMIN* 1,000 MG TAB PO SCH (09:02)
[2017-08-15] MEDS: Magnesium Oxide TAB* 400 MG PO SCH (09:02)
[2017-08-15] MEDS: Ramipril CAP* 5 MG PO SCH (09:02)
[2017-08-15] MEDS: Citalopram TAB* 40 MG PO SCH (09:02)
[2017-08-15] MEDS: Insulin GLARGINE(*) 1 UNITS UNIT SUBCUT SCH (13:38)
--- NOTE | 2017-08-16 04:14 | DS ---
CC: Dr. Saavedra; Dr. Beatty; Dr. Cotto; Dr. Correa; Dr. Harrison * DISCHARGE SUMMARY: DATE OF ADMISSION: 08/11/17 DATE OF DISCHARGE AND TRANSFER: To our physiotherapy unit 08/15/17 PRIMARY CARE PROVIDER: Dr. Saavedra. NEUROLOGY: Dr. Beatty and Dr. Cotto. PHYSIOTHERAPY: Dr. Correa and Dr. Harrison. DISCHARGE DIAGNOSES: 1. Status post fall and generalized deconditioning. 2. Ongoing workup for possibility of Parkinson's disease. 3. Uncontrolled diabetes at admission. 4. Right leg cellulitis. 5. Sinus tachycardia and uncontrolled hypertension at admission. SECONDARY DIAGNOSES: 1. History of hypertension. 2. History of diabetes. 3. History of a neurological condition with unsteady gait and falls for the past 2 years for which the patient was evaluated at an outpatient clinic previously. MEDICATIONS AT DISCHARGE: Include: 1. Acetaminophen on a p.r.n. basis. 2. Augmentin 500 mg b.i.d. with the last day of treatment being 08/17/17. 3. Carbidopa/levodopa 25/100 one tablet 3 times a day. 4. Celexa 40 mg daily. 5. Cardizem CD 360 mg daily. 6. Colace 100 mg b.i.d. 7. Trulicity as previously taken once the patient's family brings the medication. 8. Glipizide 5 mg b.i.d. 9. Insulin Lantus 20 units daily. 10. Lispro sliding scale. 11. Synthroid 100 mcg daily. 12. Metformin 1000 mg b.i.d. 13. Nystatin topical powder to apply to abdominal folds b.i.d. p.r.n. 14. Ramipril 5 mg daily. 15. VESIcare 5 mg daily. LABORATORY DATA AND STUDIES PERFORMED DURING THE HOSPITAL STAY: Include the following: On 08/13/17, sodium of 136, potassium 3.4, chloride of 102, carbon dioxide 27, BUN 19, creatinine 0.78. The patient's hemoglobin A1c was noted to be 7.7. Magnesium was low at 1.8 on 08/11/17. Total CPK at admission was 300. CBC on 08/13/17 show white blood cell count of 8.7, hemoglobin of 10.7, hematocrit of 31, platelets of 195. Blood cultures were positive for Staphylococcus simulans and epidermidis, likely contamination. Rest of the blood cultures were negative. A transthoracic echocardiogram obtained on 08/11/17 showed EF of 65% with decreased left ventricular chamber size with functionally benign valves. Shoulder x-ray on the right side on 08/11/17, impression: "No evidence of fracture". Brain MRI on 08/11/17, impression: "Chronic ischemic white matter change. Central and cortical atrophy. Normal restriction of diffusion is noted to suggest a stroke." CT angiogram of the chest obtained on 08/11/17, impression: "No definite pulmonary embolus is noted. No evidence of aortic dissection is present. Cholelithiasis without evidence of biliary duct dilatation". She was also noted to have a large pole of the right lobe of the thyroid, likely representing a nodule. Brain CT of 08/11/17 impression: "No evidence of acute findings. Atrophy and findings consistent with chronic small vessel ischemic changes. Ventricles enlarged, slightly out of proportion to the cisterns and sulci, raising the possibility of normal pressure hydrocephalus. Recommend clinical correlation." The patient's TSH at admission was 2.16. Urinalysis showed present squamous epithelial cells and positive urobilinogen, negative for esterase, negative for nitrites, +2 protein. CONSULTATIONS DURING THE HOSPITAL STAY: Included Dr. Cotto and Dr. Beatty from Neurology. HOSPITALIZATION COURSE: Guillermo Mustafa is a 71-year-old obese female with history of diabetes and who had been declining and deconditioned physically for the past couple of years. She started having frequent falls and she went to see a neurologist, who questioned normal pressure hydrocephalus. Apparently, she was not started on any medications. On 08/11/17, she came to the hospital after what she noted was probably 6 days of lying on the floor after she fell. The patient, hemodynamically appeared comfortable and there were no marked chemical abnormalities to suggest that the patient actually did lie on the floor for 6 days. The patient also was confused on presentation and remained rather poor historian for the next couple of days of her hospital stay. For CT of brain, question normal pressure hydrocephalus, and the patient did have history of incontinence and unsteady gait and problems with memory. Dr. Cotto and Dr. Beatty evaluated the patient from neurology standpoint. Initially , the patient was placed on Sinemet empirically to see if she improves. In fact over the next couple of days, the patient's resting tremor that she had, improved dramatically. She also had greatly improved mentation to the point of being back to her baseline by the time of discharge. She ambulated with a roller walker with the use of assistance, but that was not possible at admission. At this point, due to marked improvement with the use of Sinemet and help of her physical therapy made normal pressure hydrocephalus unlikely, since it would likely not improve with those treatments. The patient continued with physical therapy and did very well and she was deemed to be a good candidate to our physiotherapy unit for further evaluation and treatment. In regards to patient's diabetes, at home, the patient was on glipizide 5 mg daily and metformin 1000 mg b.i.d. The patient was also supposed to be started on Trulicity, which she picked up the prescription of, but she was not comfortable to use. At this point, the patient was started on insulin Lantus. Her hemoglobin A1c was 7.7 indicating fair glucose control at home. During the patient's hospital stay, she required glipizide 5 mg twice a day, metformin 1000 mg b.i.d. and insulin Lantus 20. It is expected that is she starts using the Trulicity at home, she may not be in need of insulin. Nevertheless, at discharge to physiotherapy unit, she is going to be continued on metformin, glipizide, and Lantus. Her friend is supposed to bring her Trulicity from home. I also asked her diabetic tanning consultant from [facility] to come in and evaluate the patient. This patient is pretty reluctant to use any injectables when going home. For her depression, she is to continue on her Celexa, which she usually takes at home. In regards to patient's tachycardia and hypertension, the patient was markedly hypertensive and tachycardic at admission. At this point, the patient was started on Cardizem CD initially on a short-acting Cardizem and then switched to Cardizem CD 240 mg daily. At discharge, the patient's blood pressure was still high and her Cardizem was increased to 360 mg daily. Her transthoracic echocardiogram showed benign valves and normal EF. PHYSICAL EXAMINATION AT THE TIME OF DISCHARGE: Blood pressure of 177/73, heart rate of 70 and regular, respiratory rate 20, oxygen saturation 97% on room air, temperature 98.3. General: This is a very pleasant 71-year-old obese female, who is in no acute distress, alert, awake, and oriented x3. HEENT: Head: Atraumatic, normocephalic. Eyes: Pupils equal and reactive to light and accommodation. Oropharynx clear. Mucosa moist. Neck: Supple. No JVD. No bruits bilaterally. Cardiovascular: Regular rate and rhythm. No murmurs. Respiratory: Clear to auscultation bilaterally. Abdomen: Soft, nontender. Bowel sounds present in all 4 quadrants. Extremities: There is trace bilateral pedal edema. Pulses +2 bilaterally. There is no clubbing or cyanosis. Skin: The patient has eschar covered abrasion on her right knee that is surrounded by cellulitic lesion, that has now resolved. Neuro Evaluation: Speech clear. Cranial nerves II through XII grossly intact. Motor strength is 5/5 bilaterally. Psychiatric Evaluation: Oriented x2, but no evidence of anxiety or depression. Please note that during her hospital stay, she was also diagnosed with right leg cellulitis, which was the area that had an abrasion of the knee after a fall. She was treated with intravenous clindamycin and switched to p.o. Augmentin to continue 7 days treatment that ends on 08/17/17. Please also note that from Dr. Saavedra's medical records, I obtained patient's medication list from home that was not present in patient's history and physical at admission on 08/11/17, and those medications at home were as follows : 1. Celexa 40 mg daily. 2. VESIcare 5 mg daily. 3. Trulicity inject as prescribed. 4. Glipizide 5 mg b.i.d. 5. Synthroid 100 mcg daily. 6. Metformin 1000 mg b.i.d. 7. Altace 5 mg daily. Please note that this is a short summary of the patient's hospital evaluation. Please refer to further medical records for details. TIME SPENT: Approximately 45 minutes was spent on the patient's discharge. [id number]/[facility] #: [id number] MTDD
--- NOTE | 2017-08-18 00:18 | ED ---
Debbie Mason Emily, scribed for Gulshan Cid MD on 08/11/17 at 0127 . Complex/Multi-Sys Presentation - HPI Summary HPI Summary: This patient is a 71 year old F BIBA to [facility] accompanied by family with s/p fall that occurred 6 days ago. Pt reports lying on the floor for the last 6 days. Symptoms aggravated by nothing. Symptoms alleviated by nothing. Patient reports confusion, feeling stiff, and difficulty walking. Pt reports being recently diagnosed with Parkinsons. Medications reviewed. Allergies reviewed. - History Of Current Complaint Hx Obtained From: Patient Onset/Duration: Sudden Onset, Lasting Days Timing: Constant Aggravating Factor(s): Nothing Alleviating Factor(s): Nothing Associated Signs And Symptoms: Positive: Confusion, Other - Positive stiffness and difficulty walking - Allergies/Home Medications Allergies/Adverse Reactions: Allergies Allergy/AdvReac Type Severity Reaction Status Date / Time Apple Allergy Intermediate Anaphylatic Verified 08/13/17 08:50 Shock Sulfa Antibiotics Allergy Rash Verified 08/11/17 01:49 PMH/Surg Hx/FS Hx/Imm Hx Previously Healthy: No Endocrine/Hematology History: Reports: Hx Diabetes Opthamlomology History: Denies: Hx Legally Blind EENT History: Denies: Hx Deafness Infectious Disease History: No Infectious Disease History: Denies: Traveled Outside the [place] in Last 30 Days - Family History Known Family History: Positive: Unknown - Social History Occupation: Retired Lives: Alone Review of Systems Positive: Other - Positive stiffness and difficulty walking Neurological: Other - Positive confusion All Other Systems Reviewed And Are Negative: Yes Physical Exam - Summary Physical Exam Summary: Appearance: Well-appearing, Well-nourished Skin: Warm, Dry, Necrotic decubiti on R elbow. Sheree intertrigo in groin and under breasts. Multiple abdominal folds Eyes: Normal, PERRL, EOMI, sclera anicteric ENT: Normal Neck: Supple, nontender Respiratory: Clear to auscultation Cardiovascular: S1, S2, no murmur, no rub, no gallop Abdomen: Soft, nontender, no organomegaly Bowel sounds: Present Musculoskeletal: Strength/ROM Intact, no edema, pulses symmetrical, Cogwheeling bilaterally Neurological: A&Ox3, cranial nerves II-XII WNL, follows commands, gait not tested, sensation intact to pin and light touch, Tremulous. Seems a bit confused. Psychiatric: affect normal, behavior appropriate, dressed appropriately, judgment intact Triage Information Reviewed: Yes Vital Signs On Initial Exam: Initial Vitals Temp Pulse Resp BP Pulse Ox 36.2 C 110 18 145/102 95 08/11/17 01:00 08/11/17 01:00 08/11/17 01:00 08/11/17 01:00 08/11/17 01:00 Vital Signs Reviewed: Yes Diagnostics - Vital Signs Vital Signs Temp Pulse Resp BP Pulse Ox 08/11/17 01:00 36.2 C 110 18 145/102 95 - Laboratory Lab Results: Lab Results 08/11/17 08/11/17 08/11/17 Range/Units 01:08 01:08 01:08 WBC 12.4 H (3.5-10.8) 10^3/ul RBC 5.46 H (4.0-5.4) 10^6/ul Hgb 15.2 (12.0-16.0) g/dl Hct 46 (35-47) % MCV 85 (80-97) fL MCH 28 (27-31) pg MCHC 33 (31-36) g/dl RDW 15 (10.5-15) % Plt Count 385 (150-450) 10^3/ul MPV 9 (7.4-10.4) um3 Neut % (Auto) 75.8 (38-83) % Lymph % (Auto) 15.8 L (25-47) % [place] % (Auto) 6.2 (1-9) % Eos % (Auto) 1.2 (0-6) % Baso % (Auto) 1.0 (0-2) % Absolute Neuts (auto) 9.4 H (1.5-7.7) 10^3/ul Absolute Lymphs (auto) 2.0 (1.0-4.8) 10^3/ul Absolute Monos (auto) 0.8 (0-0.8) 10^3/ul Absolute Eos (auto) 0.1 (0-0.6) 10^3/ul Absolute Basos (auto) 0.1 (0-0.2) 10^3/ul Absolute Nucleated RBC 0 10^3/ul Nucleated RBC % 0.2 Sodium 137 (133-145) mmol/L Potassium 4.3 (3.5-5.0) mmol/L Chloride 101 (101-111) mmol/L Carbon Dioxide 24 (22-32) mmol/L Anion Gap 12 H (2-11) mmol/L BUN 33 H (6-24) mg/dL Creatinine 0.95 (0.51-0.95) mg/dL Est GFR ( Amer) 75.0 (>60) Est GFR (Non-Af Amer) 58.3 (>60) BUN/Creatinine Ratio 34.7 H (8-20) Glucose 335 H (70-100) mg/dL Hemoglobin A1c (4.0-5.6) % Lactic Acid 2.6 H* (0.5-2.0) mmol/L Calcium 10.0 (8.6-10.3) mg/dL Total Bilirubin 0.70 (0.2-1.0) mg/dL AST 27 (13-39) U/L ALT 43 (7-52) U/L Alkaline Phosphatase 92 (34-104) U/L Total Creatine Kinase 300 H (10-223) U/L Troponin I 0.01 (<0.04) ng/mL Total Protein 7.9 (6.4-8.9) g/dL Albumin 3.6 (3.2-5.2) g/dL Globulin 4.3 H (2-4) g/dL Albumin/Globulin Ratio 0.8 L (1-3) TSH 2.16 (0.34-5.60) mcIU/mL 08/11/17 Range/Units 01:08 WBC (3.5-10.8) 10^3/ul RBC (4.0-5.4) 10^6/ul Hgb (12.0-16.0) g/dl Hct (35-47) % MCV (80-97) fL MCH (27-31) pg MCHC (31-36) g/dl RDW (10.5-15) % Plt Count (150-450) 10^3/ul MPV (7.4-10.4) um3 Neut % (Auto) (38-83) % Lymph % (Auto) (25-47) % [place] % (Auto) (1-9) % Eos % (Auto) (0-6) % Baso % (Auto) (0-2) % Absolute Neuts (auto) (1.5-7.7) 10^3/ul Absolute Lymphs (auto) (1.0-4.8) 10^3/ul Absolute Monos (auto) (0-0.8) 10^3/ul Absolute Eos (auto) (0-0.6) 10^3/ul Absolute Basos (auto) (0-0.2) 10^3/ul Absolute Nucleated RBC 10^3/ul Nucleated RBC % Sodium (133-145) mmol/L Potassium (3.5-5.0) mmol/L Chloride (101-111) mmol/L Carbon Dioxide (22-32) mmol/L Anion Gap (2-11) mmol/L BUN (6-24) mg/dL Creatinine (0.51-0.95) mg/dL Est GFR ( Amer) (>60) Est GFR (Non-Af Amer) (>60) BUN/Creatinine Ratio (8-20) Glucose (70-100) mg/dL Hemoglobin A1c 7.7 H (4.0-5.6) % Lactic Acid (0.5-2.0) mmol/L Calcium (8.6-10.3) mg/dL Total Bilirubin (0.2-1.0) mg/dL AST (13-39) U/L ALT (7-52) U/L Alkaline Phosphatase (34-104) U/L Total Creatine Kinase (10-223) U/L Troponin I (<0.04) ng/mL Total Protein (6.4-8.9) g/dL Albumin (3.2-5.2) g/dL Globulin (2-4) g/dL Albumin/Globulin Ratio (1-3) TSH (0.34-5.60) mcIU/mL Result Diagrams: 08/13/17 05:39 08/13/17 05:39 Lab Statement: Any lab studies that have been ordered have been reviewed, and results considered in the medical decision making process. - CT Brain CT CT Interpretation Completed By: Radiologist - Brain CT reveals, per radiologist , ventriculomegaly out of proportion with sulcal enlargement, question normal. No acute hemorrhage, mass or acute territorial infarct. Chronic small vessel ischemic changes. No skull fracture. Clear visualized paranasal sinuses. Visualized mastoid air cells clear. ED physician has reivewed this radiology report. - EKG 0130 Cardiac Rate: Tachycardia EKG Rhythm: Sinus Rhythm - 129 BPM EKG Interpretation: Prolonged QT interval Complex Multi-Symp Course/Dx Assessment/Plan: This patient is a 71 year old F BIBA to [facility] accompanied by family with s/p fall that occurred 6 days ago. Pt reports lying on the floor for the last 6 days. Physical Exam Findings. Tremulous. Seems a bit confused. Cogwheeling bilaterally. Necrotic decubiti on R elbow. Sheree intertrigo in groin and under breasts. Multiple abdominal folds. An EKG taken at 0131 reveals sinus tachycardia at 129 BPM and prolonged QT interval. Brain CT reveals, per radiologist, ventriculomegaly out of proportion with sulcal enlargement, question normal. No acute hemorrhage, mass or acute territorial infarct. Chronic small vessel ischemic changes. No skull fracture. Clear visualized paranasal sinuses. Visualized mastoid air cells clear. ED physician has reviewed this radiology report. Bloodwork obtained. In the ED course the patient was given Clindamycin and fluids. Consult with Dr. Fairbanks (hospitalist) at 0234. She agrees to admit pt for further evaluation. The patient is agreeable with this plan. - Diagnoses Provider Diagnoses: Sepsis, lactic acidosis secondary to decubitis, Parkinsonian features - Physician Notifications Discussed Care Of Patient With: Elvira Fairbanks Time Discussed With Above Provider: 02:34 Instructed by Provider To: Other - Consult with Dr. Fairbanks (hospitalist) at 0234. She agrees to admit pt for further evaluation. Discharge - Discharge Plan Condition: Improved Disposition: ADMITTED TO [facility] documentation as recorded by the Debbie wood Emily accurately reflects the service I personally performed and the decisions made by me, Gulshan Cid MD.
== END 2017-08-15 15:43 | DRG 57 ==
LOC: ED 00:02 → MEDTELE 03:27
PROVIDERS: ADMIT Pediatrics; ATTEND Internal Medicine
DX: G20 Parkinson's disease (principal); E11.65 Type 2 diabetes mellitus with hyperglycemia; E66.01 Morbid (severe) obesity due to excess calories; L03.115 Cellulitis of right lower limb; Z68.41 Body mass index [BMI] 40.0-44.9, adult; B95.7 Other staphylococcus as the cause of diseases classified elsewhere; I10 Essential (primary) hypertension; R00.0 Tachycardia, unspecified; E04.1 Nontoxic single thyroid nodule; F32.9 Major depressive disorder, single episode, unspecified; W06.XXXA Fall from bed, initial encounter; Z71.3 Dietary counseling and surveillance; Z79.84 Long term (current) use of oral hypoglycemic drugs; Z79.899 Other long term (current) drug therapy; Z88.2 Allergy status to sulfonamides; Y92.9 Unspecified place or not applicable
CPT/HCPCS: 36415; 70450; 70551; 71275; 80048; 80053; 81003; 81015; 82550; 83036; 83605; 83735; 84443; 84484; 85025; 85610; 85730; 87040; 87077; 87150; 87205; 93005; 93306; 96374; 99284; A9270-GY; J1644; Q9967

== ENCOUNTER 2017-08-15 10:21 | Inpatient (IN) | payer MEDICARE, OTHER ==
[2017-08-15] MEDS ORDERED: Magnesium Hydroxide LIQ* 30 ML UDC PO PRN (16:20)
[2017-08-15] MEDS ORDERED: Senna TAB PO PRN (16:20)
[2017-08-15] MEDS ORDERED: Acetaminophen TAB* 325 MG PO PRN (16:20)
[2017-08-15] MEDS ORDERED: Dextrose 50% Syringe 50 ML* 25 GM/50 ML SYRINGE IV PUSH PRN (16:35)
[2017-08-15] MEDS: glipiZIDE TAB* 5 MG PO SCH (17:20)
[2017-08-15] MEDS: metFORMIN* 1,000 MG TAB PO SCH (17:20)
[2017-08-15] MEDS: Amoxicillin/Clavulanate TAB* 500 MG PO SCH (20:46)
[2017-08-15] MEDS: Docusate CAP* 100 MG PO SCH (20:46)
[2017-08-15] MEDS: Carbidopa/Levodop 25/100 MG TAB(*) PO SCH (20:46)
[2017-08-15] MEDS: Insulin LISPRO* 1 UNITS UNIT SUBCUT SCH (20:48)
--- NOTE | 2017-08-15 21:05 | HP ---
ADMISSION HISTORY AND PHYSICAL: DATE OF ADMISSION: 08/15/17 REASON FOR ADMISSION: Parkinsonism. HISTORY OF ILLNESS: Guillermo Mustafa is a 71-year-old female. The patient has a history of diabetes mellitus and sees Dr. Saavedra as her primary care doctor. The patient had some difficulty with falling over the past few weeks. She has seen a neurologist. The diagnosis was unclear. Working diagnosis included parkinsonism and/or normal pressure hydro-cephalus. The patient fell in her own home on 08/05/17. She was unable to get up. Her friends had tried to reach her and she was unable to answer the phone. Her friends eventually came to the house and with the help of the police they broke in and found her on the floor. She was covered in stool and urine. She was brought to the hospital on 08/11/17 after being found. The patient was hydrated with fluids. She was evaluated by Dr. Cotto. Dr. Cotto had looked at the CAT scan of her brain, which showed large ventricles. She also had an MRI of the brain, but again seeing large ventricles. Initially, they thought she might have normal pressure hydrocephalus. She was seen in followup by Dr. Jose Alfredo Beatty. The patient was given a Sinemet trial over the weekend. She seemed to improve, but was doing worse as the day went on. 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 It was decided she would continue on this and be followed as an outpatient. If the improvement waned, she would consider workup and treatment for possible normal pressure hydrocephalus. The patient was felt to have physical therapy and occupational therapy needs. She is now being admitted for inpatient rehab, so she may return to independent living. Of note, the patient looked like she might have a cellulitis of her right knee. She was started on Augmentin and she is on day 5 of 7 of Augmentin. PAST MEDICAL HISTORY: Significant for diabetes. She takes metformin and glipizide at home. CURRENT MEDICATIONS: Include: 1. Lantus insulin. 2. She is on Augmentin as previously mentioned. 3. She is on Celexa. 4. Cardizem CD. 5. Glipizide. 6. Metformin. 7. Lispro sliding scale. 8. Altace. 9. Bowel medications. ALLERGIES: SULFA. SOCIAL HISTORY: She lives in a 2-kimber house, but can stay on the first floor. She is a nonsmoker, nondrinker. 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 REVIEW OF SYSTEMS: No current shortness of breath or chest pain. PHYSICAL EXAMINATION VITAL SIGNS: The patient's temperature is 98.4, blood pressure is 150/68, pulse 87, respirations 18. HEENT: Her extraocular movements are intact. NECK: Supple with no lymphadenopathy. HEART: Sounds are regular. S1, and S2 are audible. ABDOMEN: Soft and nontender. EXTREMITIES: She had slightly increased tone with suggestion of rigidity. Her peripheral pulses are intact. NEUROLOGIC: She is awake, alert, and oriented to herself and place. Muscle strength is about 4+/5 throughout. Her functional exam, she transfers with contact guard to min assist. ASSESSMENT: Parkinsonism versus normal pressure hydrocephalus. PLAN: Integrate her into a comprehensive and therapeutic rehab program with the following goals: 1. Physical Therapy will work with the patient. They are going to work on functional transfer training and ambulation training with a walker. 2. Occupational Therapy will see the patient, work on her activities of daily living including toileting and toilet transfers. 3. Heparin for DVT prophylaxis. 4. Speech Therapy to evaluate her memory problems. 5. Continue Sinemet trial. 6. For her diabetes, we will continue Glucophage and glipizide. We will do fingersticks 4 times a day with sliding scale insulin coverage. We will taper off her Lantus as she does not take this at home. 7. Continue and finish course of Augmentin for possible cellulitis. 8. Continue medicines for hypertension. 9. business services analyst will be closely involved to make sure that any services and equipment the patient requires are in place prior to discharge. 10. Advance directives: She is a full code. 11. Home with appropriate services. ESTIMATED LENGTH OF STAY: 1 week. [id number]/[facility] #: [id number] JOSE
[2017-08-15] MEDS: Heparin VIAL(*) 5000 UNITS/ML VIAL (FIVE THOUSAND) SUBCUT SCH (21:29)
[2017-08-16] MEDS: Heparin VIAL(*) 5000 UNITS/ML VIAL (FIVE THOUSAND) SUBCUT SCH ×3 (05:39→21:04)
[2017-08-16] MEDS: Levothyroxine TAB* 100 MCG TAB PO SCH (05:40)
[2017-08-16 07:09] LABS: ABS Basophils 0.1 10^3/ul (0-0.2); ABS Eosinophils 0.4 10^3/ul (0-0.6); ABS Lymphocytes 1.9 10^3/ul (1.0-4.8); ABS Monocytes 0.6 10^3/ul (0-0.8); ABS Neutrophils 4.1 10^3/ul (1.5-7.7); ABS Nucleated RBC 0 10^3/ul; Eosinophil % 5.8 % (0-6); Hematocrit 35 % (35-47); Hemoglobin 11.8 g/dl (12.0-16.0); Lymphocyte % 26.9 % (25-47); Mean Corpuscular HGB Conc 34 g/dl (31-36); Mean Corpuscular Hemoglobin 28 pg (27-31); Mean Corpuscular Volume 85 fL (80-97); Mean Platelet Volume 9 um3 (7.4-10.4); Nucleated Red Blood Cells % 0.1; Platelet Count 216 10^3/ul (150-450); Red Blood Count 4.14 10^6/ul (4.0-5.4); Red Cell Distribution Width 15 % (10.5-15); White Blood Count 7.1 10^3/ul (3.5-10.8)
[2017-08-16 07:42] LABS: EGFR Non-African American 77.8 (>60)
[2017-08-16] MEDS: Ramipril CAP* 5 MG PO SCH (07:58)
[2017-08-16] MEDS: Docusate CAP* 100 MG PO SCH ×2 (07:58→21:02)
[2017-08-16] MEDS: Carbidopa/Levodop 25/100 MG TAB(*) PO SCH ×3 (07:58→21:03)
[2017-08-16] MEDS: glipiZIDE TAB* 5 MG PO SCH ×2 (07:58→17:14)
[2017-08-16] MEDS: Citalopram TAB* 40 MG PO SCH (07:58)
[2017-08-16] MEDS: metFORMIN* 1,000 MG TAB PO SCH ×2 (07:58→17:14)
[2017-08-16] MEDS: Diltiazem CD CAP* 180 MG PO SCH (07:59)
[2017-08-16] MEDS: Amoxicillin/Clavulanate TAB* 500 MG PO SCH ×2 (07:59→21:02)
[2017-08-16] MEDS: Insulin LISPRO* 1 UNITS UNIT SUBCUT SCH ×4 (08:00→21:04)
[2017-08-16] MEDS ORDERED: Insulin GLARGINE(*) 1 UNITS UNIT SUBCUT SCH (12:00)
[2017-08-16] MEDS: Insulin GLARGINE(*) 1 UNITS UNIT SUBCUT SCH (21:03)
--- NOTE | 2017-08-16 21:35 | PN ---
Progress Note - Progress Note Date of Service: 08/16/17 Note: Guillermo visited. Therapy notes read and reviewed. Ambulated fairly well, difficulty with some cognitive skills. She feels ok overall. Current Medications Acetaminophen (Tylenol Tab*) 650 mg PO Q6H PRN PRN Reason: FEVER/PAIN Amoxicillin/Clavulanate Potassium (Augmentin Tab*) 500 mg PO BID [facility] Stop: 08/17/17 23:59 Last Admin: 08/16/17 21:02 Dose: 500 mg Carbidopa/Levodopa (Sinemet 25/100 Tab(*)) 1 tab PO TID [facility] Last Admin: 08/16/17 21:03 Dose: 1 tab Citalopram Hydrobromide (Celexa Tab*) 40 mg PO DAILY [facility] Last Admin: 08/16/17 07:58 Dose: 40 mg Dextrose (D50w Syringe 50 Ml*) 12.5 gm IV PUSH .FOR FS < 60 - SS PRN PRN Reason: FS < 60 Diltiazem HCl (Cardizem Cd Cap*) 360 mg PO DAILY [facility] Last Admin: 08/16/17 07:59 Dose: 360 mg Docusate Sodium (Colace Cap*) 100 mg PO BID [facility] Last Admin: 08/16/17 21:02 Dose: Not Given Glipizide (Glucotrol Tab*) 5 mg PO 0800,1700 [facility] Last Admin: 08/16/17 17:14 Dose: 5 mg Heparin Sodium (Porcine) (Heparin Vial(*)) 5,000 units SUBCUT Q8HR [facility] Last Admin: 08/16/17 21:04 Dose: 5,000 units Insulin Glargine (Lantus(*)) 14 units SUBCUT Q24H [facility] Last Admin: 08/16/17 21:03 Dose: 14 units Insulin Human Lispro (Humalog*) 0 - 10 units SUBCUT ACHS [facility] PRN Reason: Protocol Last Admin: 08/16/17 21:04 Dose: Not Given Levothyroxine Sodium (Synthroid Tab*) 100 mcg PO DAILY@0600 [facility] Last Admin: 08/16/17 05:40 Dose: 100 mcg Magnesium Hydroxide (Milk Of Magnesia Liq*) 30 ml PO Q6H PRN PRN Reason: CONSTIPATION Metformin HCl (Glucophage*) 1,000 mg PO 0800,1700 [facility] Last Admin: 08/16/17 17:14 Dose: 1,000 mg Ramipril (Altace Cap*) 5 mg PO DAILY [facility] Last Admin: 08/16/17 07:58 Dose: 5 mg Senna (Senokot Tab*) 2 tab PO BEDTIME PRN PRN Reason: CONSTIPATION Laboratory Results - last 24 hr 08/16/17 08/16/17 08/16/17 06:48 06:48 07:31 WBC 7.1 RBC 4.14 Hgb 11.8 L Hct 35 MCV 85 MCH 28 MCHC 34 RDW 15 Plt Count 216 MPV 9 Neut % (Auto) 57.7 Lymph % (Auto) 26.9 Loving % (Auto) 8.1 Eos % (Auto) 5.8 Baso % (Auto) 1.5 Absolute Neuts (auto) 4.1 Absolute Lymphs (auto) 1.9 Absolute Monos (auto) 0.6 Absolute Eos (auto) 0.4 Absolute Basos (auto) 0.1 Absolute Nucleated RBC 0 Nucleated RBC % 0.1 Sodium 135 Potassium 4.9 Chloride 101 Carbon Dioxide 29 Anion Gap 5 BUN 14 Creatinine 0.74 Est GFR ( Amer) 100.1 Est GFR (Non-Af Amer) 77.8 BUN/Creatinine Ratio 18.9 Glucose 130 H POC Glucose (mg/dL) 141 H Calcium 9.3 Total Bilirubin 0.40 AST 39 ALT 39 Alkaline Phosphatase 80 Total Protein 6.7 Albumin 3.1 L Globulin 3.6 Albumin/Globulin Ratio 0.9 L 08/16/17 08/16/17 08/16/17 11:47 16:41 20:45 WBC RBC Hgb Hct MCV MCH MCHC RDW Plt Count MPV Neut % (Auto) Lymph % (Auto) Loving % (Auto) Eos % (Auto) Baso % (Auto) Absolute Neuts (auto) Absolute Lymphs (auto) Absolute Monos (auto) Absolute Eos (auto) Absolute Basos (auto) Absolute Nucleated RBC Nucleated RBC % Sodium Potassium Chloride Carbon Dioxide Anion Gap BUN Creatinine Est GFR ( Amer) Est GFR (Non-Af Amer) BUN/Creatinine Ratio Glucose POC Glucose (mg/dL) 99 140 H 129 H Calcium Total Bilirubin AST ALT Alkaline Phosphatase Total Protein Albumin Globulin Albumin/Globulin Ratio Vital Signs Temp Pulse Resp BP Pulse Ox 98.0 F 80 16 142/61 98 08/16/17 15:53 08/16/17 15:53 08/16/17 17:29 08/16/17 15:53 08/16/17 17:31 EXAM: LUNGS: Clear bilaterally HEART: reg rhythm ABDOMEN: Soft NEUROLOGIC: alert. 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 Gait better. Follow Cognition 2. Diabetes: Glipizide/Metformin/Lantus/SSI 3. Hypothyroidism: Synthroid 4. DVT Prophylaxis: S/Q Heparin 5. Cellulitis: Augmentin, day 6/7 6. HTN: Altace/Diltiazem 7. Advanced directives: Full Code
[2017-08-17] MEDS: Levothyroxine TAB* 100 MCG TAB PO SCH (05:25)
[2017-08-17] MEDS: Heparin VIAL(*) 5000 UNITS/ML VIAL (FIVE THOUSAND) SUBCUT SCH ×3 (05:25→21:27)
[2017-08-17] MEDS: Citalopram TAB* 40 MG PO SCH (09:09)
[2017-08-17] MEDS: Amoxicillin/Clavulanate TAB* 500 MG PO SCH ×2 (09:09→21:26)
[2017-08-17] MEDS: Ramipril CAP* 5 MG PO SCH (09:09)
[2017-08-17] MEDS: glipiZIDE TAB* 5 MG PO SCH ×2 (09:09→17:16)
[2017-08-17] MEDS: Diltiazem CD CAP* 180 MG PO SCH (09:09)
[2017-08-17] MEDS: metFORMIN* 1,000 MG TAB PO SCH ×2 (09:09→17:15)
[2017-08-17] MEDS: Carbidopa/Levodop 25/100 MG TAB(*) PO SCH ×3 (09:09→21:26)
[2017-08-17] MEDS: Docusate CAP* 100 MG PO SCH ×2 (09:11→20:50)
[2017-08-17] MEDS: Insulin LISPRO* 1 UNITS UNIT SUBCUT SCH ×4 (09:15→21:27)
--- NOTE | 2017-08-17 18:38 | PN ---
Progress Note - Progress Note Date of Service: 08/17/17 Note: Guillermo visited. Therapy notes read and reviewed. She thinks she is getting stronger. Gait is better. Current Medications Acetaminophen (Tylenol Tab*) 650 mg PO Q6H PRN PRN Reason: FEVER/PAIN Amoxicillin/Clavulanate Potassium (Augmentin Tab*) 500 mg PO BID [facility] Stop: 08/17/17 23:59 Last Admin: 08/17/17 09:09 Dose: 500 mg Carbidopa/Levodopa (Sinemet 25/100 Tab(*)) 1 tab PO TID [facility] Last Admin: 08/17/17 14:40 Dose: 1 tab Citalopram Hydrobromide (Celexa Tab*) 40 mg PO DAILY [facility] Last Admin: 08/17/17 09:09 Dose: 40 mg Dextrose (D50w Syringe 50 Ml*) 12.5 gm IV PUSH .FOR FS < 60 - SS PRN PRN Reason: FS < 60 Diltiazem HCl (Cardizem Cd Cap*) 360 mg PO DAILY [facility] Last Admin: 08/17/17 09:09 Dose: 360 mg Docusate Sodium (Colace Cap*) 100 mg PO BID [facility] Last Admin: 08/17/17 09:11 Dose: Not Given Glipizide (Glucotrol Tab*) 5 mg PO 0800,1700 [facility] Last Admin: 08/17/17 17:16 Dose: 5 mg Heparin Sodium (Porcine) (Heparin Vial(*)) 5,000 units SUBCUT Q8HR [facility] Last Admin: 08/17/17 14:41 Dose: 5,000 units Insulin Glargine (Lantus(*)) 14 units SUBCUT Q24H [facility] Last Admin: 08/16/17 21:03 Dose: 14 units Insulin Human Lispro (Humalog*) 0 - 10 units SUBCUT ACHS [facility] PRN Reason: Protocol Last Admin: 08/17/17 17:12 Dose: Not Given Levothyroxine Sodium (Synthroid Tab*) 100 mcg PO DAILY@0600 [facility] Last Admin: 08/17/17 05:25 Dose: 100 mcg Magnesium Hydroxide (Milk Of Magnesia Liq*) 30 ml PO Q6H PRN PRN Reason: CONSTIPATION Metformin HCl (Glucophage*) 1,000 mg PO 0800,1700 [facility] Last Admin: 08/17/17 17:15 Dose: 1,000 mg Ramipril (Altace Cap*) 5 mg PO DAILY [facility] Last Admin: 08/17/17 09:09 Dose: 5 mg Senna (Senokot Tab*) 2 tab PO BEDTIME PRN PRN Reason: CONSTIPATION Glucose Results Blood Glucose Monitoring POC Start: 08/15/17 16: 34 Freq: ACHS Status: Active Protocol: Document 08/16/17 16:30 [id number] (Rec: 08/16/17 16:42 [id number]) Blood Glucose Monitoring POC Glucose Obtained Yes Glucose Result Being Addressed/Treated ( 140 mg/dL) Blood Glucose Method POC Glucose (bedside) Additional Actions Taken Other Document 08/16/17 21:00 [id number] (Rec: 08/16/17 21:05 [id number]) Blood Glucose Monitoring POC Glucose Obtained Yes Glucose Result Being Addressed/Treated ( 129 mg/dL) Blood Glucose Method POC Glucose (bedside) Additional Actions Taken Other Document 08/17/17 07:30 [id number] (Rec: 08/17/17 10:54 [id number]) Blood Glucose Monitoring POC Glucose Obtained Yes Glucose Result Being Addressed/Treated ( 149 mg/dL) Blood Glucose Method POC Glucose (bedside) Additional Actions Taken Nurse Notified Document 08/17/17 16:30 [id number] (Rec: 08/17/17 17:12 [id number]) Blood Glucose Monitoring POC Glucose Obtained Yes Glucose Result Being Addressed/Treated ( 97 mg/dL) Blood Glucose Method POC Glucose (bedside) Vital Signs Temp Pulse Resp BP Pulse Ox 98.7 F 79 16 154/59 95 08/17/17 16:02 08/17/17 16:02 08/17/17 16:02 08/17/17 16:02 08/17/17 16:02 EXAM: LUNGS: Clear bilaterally HEART: reg rhythm ABDOMEN: Soft NEUROLOGIC: alert. 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 Gait better. 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 Follow Cognition 2. Diabetes: Glipizide/Metformin/Lantus/SSI 3. Hypothyroidism: Synthroid 4. DVT Prophylaxis: S/Q Heparin 5. Cellulitis: Augmentin, day 02/03 6. HTN: Altace/Diltiazem 7. Advanced directives: Full Code
[2017-08-17] MEDS: Insulin GLARGINE(*) 1 UNITS UNIT SUBCUT SCH (21:27)
[2017-08-18] MEDS: Heparin VIAL(*) 5000 UNITS/ML VIAL (FIVE THOUSAND) SUBCUT SCH ×3 (06:04→21:22)
[2017-08-18] MEDS: Levothyroxine TAB* 100 MCG TAB PO SCH (06:05)
[2017-08-18] MEDS: Citalopram TAB* 40 MG PO SCH (08:57)
[2017-08-18] MEDS: Ramipril CAP* 5 MG PO SCH (08:57)
[2017-08-18] MEDS: Diltiazem CD CAP* 180 MG PO SCH (08:58)
[2017-08-18] MEDS: metFORMIN* 1,000 MG TAB PO SCH ×2 (08:58→17:40)
[2017-08-18] MEDS: glipiZIDE TAB* 5 MG PO SCH ×2 (08:58→17:40)
[2017-08-18] MEDS: Carbidopa/Levodop 25/100 MG TAB(*) PO SCH ×3 (08:58→21:21)
[2017-08-18] MEDS: Docusate CAP* 100 MG PO SCH ×2 (08:58→21:21)
[2017-08-18] MEDS: Insulin LISPRO* 1 UNITS UNIT SUBCUT SCH ×4 (08:59→21:22)
--- NOTE | 2017-08-18 12:36 | PMRUTEAM ---
PMRU: Goals Current Status: Nursing: Current Status Skin Deviations [Right Abdomen Abrasion ] Skin Deviations [Left Abdomen] Abrasion Skin Deviations [Bilateral Rash Breast] Skin Deviations [Bilateral Abrasion Knee] Skin Deviation Description [ abrasion. mepilex applied Right Abdomen] Skin Deviation Description [ scratch-healing Left Abdomen] Skin Deviation Description [ skin prep pads used, healing well Bilateral Breast] Skin Deviation Description [ R knee dressing changed, L knee dressing CD&I Bilateral Knee] Physical Therapy: Current Status Bed Mobility Assistance Supervision Transfer Moblility Assistance Supervision Transfer/Bed Mobility Rolling Walker Recommended Devices Ambulation Assistance Supervision Ambulation Assistive Devices Rolling Walker Number of Feet Patient 100 Ambulated Stairs Assistance Supervision Stairs Recommended Devices Two Rails Number of Stairs 5 Occupational Therapy: Current Status Upper Body Dressing Supervision Lower Body Dressing Min Assist Bathing Min Assist Toileting Contact Guard Assist Toilet Transfer Contact Guard Assist Shower Transfer Contact Guard Assist Eating Independent Rec Therapy: Current Status Summary of Assessment and Pt. was open to conversation - identified with Clinical Impression some leisure activities but lack of involvement in most of them. Pt. did not identify boredom and states she enjoys her life. Pt. had leisure activities to engage in and was open to continued leisure visits. Treatment Goals Pt. will engage in leisure activities while on the unit. Treatment Plan Provide RT services and encourage involvement. Social Work: Current Status Discharge Plan return home with home care svs and support from friends Potential for Family Training n/a - pt lives alone Anticipated Discharge Home Destination Discharge With VNS and support from friends Speech: Current Status Assessment Pt demonstrated improved memory and comprehension by following strategies as prompted by APPAREL RENTAL CLERK. Further assessment of word-finding is indicated. Goals: Physical Therapy: Initial Goals Bed Mobility Assistance Independent Transfer Mobility Assistance Independent Transfer/Bed Mobility Rolling Walker Recommended Devices Ambulation Independent Ambulation Recommended Devices Rolling Walker Ambulation Distance 300 Wheelchair Propulsion Ability Independent Stairs Assistance Independent Stair Recommended Devices One Rail Number of Stairs 5 Physical Therapy: Updated Goals Transfer/Bed Mobility Rolling Walker Recommended Devices Occupational Therapy: Initial Goals Goals to be Completed in (Days 5-10 ) Upper Body Bathing Routine Modified Independent with Lower Body Bathing Routine Modified Independent with Upper Body Dressing Routine Modified Independent with Lower Body Dressing Routine Modified Independent with Toilet Hygeine and Clothing Modified Independent with Management Routine Toilet Transfer Routine Modified Independent with Step-In Shower Transfer Modified Independent with Routine Functional Transfers for ADL Modified Independent with Grooming Routine Modified Independent with Feeding Routine Modified Independent with Light Housekeeping Tasks Modified Independent with Speech: Goals Speech Goal 1 Memory Goal 1 Comments Long-Term Goal: Pt will use compensatory strategies to encode and retrieve 4/4 new items after delay of 30 minutes, Independently, for independence in mobility safety, ADLs and community access. Short-term Goal: Pt will use compensatory strategies to encode and retrieve 3/4 new items after delay of 5 minutes, given Moderate skilled instruction and cueing. Status: Pt recalled 1/2 items encoded the day I'ly and 2/2 given one gesture cue. Pt used attention techniques to encode a 3rd picture, did not recall after delay of 1 minute with distraction, but given moderate cued instruction to use Spaced Retrieval technique with short intervals up to 1 minute, did recall 3/3 after 5 minutes, . increasing to 1, 2 and 3 minutes with increasing alternating attention to distractions. Speech Goal 2 Problem Solving Speech Goal 2 Comments Long-Term Goal: Pt will use compensatory strategies to solve moderately complex routine problems, with 100% accuracy, Independently, for ADLs such as shopping, time and money management. Short-Term Goal: Pt will use compensatory strategies to solve moderately complex routine problems, with 80% accuracy, given Moderate skilled instruction and cueing. Status: Assessment complete, pt demonstrated moderate impairment. Speech Goal 3 Comprehension Speech Goal 3 Comments Long-Term Goal: Pt will use compensatory strategies to demonstrate comprehension of paragraph length verbal and written information of moderate complexity, 100% accuracy, given minimal extra time, Independently. Short-Term Goal: Pt will use compensatory strategies to demonstrate comprehension of paragraph length verbal and written information of simple complexity, 90% accuracy, given moderate extra time, and Moderate skilled instruction and cueing. Status: APPAREL RENTAL CLERK provided printed directions and skilled instruction in Caroline's Attentive Reading and Constrained Summarization method of reading and verbally recalling written information . Given maximal skilled instruction, pt summarized hoyos points of 6-sentence informational article with 75% accuracy, missing out some hoyos points. APPAREL RENTAL CLERK demonstrated modification of circling limited keywords to repeat in summary, and pt gave return demonstration. Social Work: Goals Discharge Plan return home with home care svs and support from friends Potential for Family Training n/a - pt lives alone Anticipated Discharge Home Destination Discharge With VNS and support from friends Care Plan: Care Plan ADL's - Improve/Maintain Start: 08/16/17 00:18 Freq: DAILY Status: Active Target: Protocol: Activity Type Activity Date Activity User E-Sign Co-Sign Detail Recorded Client Recorded Date Recorded By Document 08/17/17 10:57 [id number] 08/17/17 10:59 [id number] 08/17/17 10:57 PMRU Outcome: ADL's/ADL Transfers Orders/Interventions Occupational Therapy Evaluation & Treatment Communication Tool in Patient Room Device Yes Address Deficits Secondary To: atypical Parkinson's vs NPH Patient to receive OT 5x/wk for 60-120 Therex min/day Self Care Management Group Therapy Neuromuscular ReEducation UE/LE ADL's with Assist Yes: Ziggy ADL Transfers with Assist Yes: Ziggy Toileting: Transfers,Clothing Management Yes: Ziggy ,Hygeine w/Assist Light Kitchen/Laundry w/Assist Yes: Ziggy Progression Toward Outcome/Goals Progressing Outcome/Goals Met Pt participated well in ADL treatment, at times appears frustrated with being at rehab 2* decreased awareness of assistance currently required. Pt with increased independence with LE dressing this date with use of child development director. DVT Prophylaxis- Improve/Maintain Start: 08/16/17 00:18 Freq: DAILY Status: Active Target: Protocol: Activity Type Activity Date Activity User E-Sign Co-Sign Detail Recorded Client Recorded Date Recorded By Document 08/17/17 18:44 [id number] 08/17/17 18:47 [id number] 08/17/17 18:44 PMRU Outcome: DVT Prophylaxis Outcome/Goals Remains Free of DVT Free of complications from current DVT TEDS Stockings on Every AM, Off at HS Progression Toward Outcome/Goals Progressing Discharge Planning - Improve/Maintain Start: 08/16/17 00:18 Freq: DAILY Status: Active Target: Protocol: Activity Type Activity Date Activity User E-Sign Co-Sign Detail Recorded Client Recorded Date Recorded By Document 08/17/17 00:21 [id number] 08/17/17 00:21 [id number] 08/17/17 00:21 PMRU Outcome: Discharge Planning Update Patient Family No Outcome/Goals Demonstrates Understanding of Discharge Plan Progression Toward Outcome/Goals Progressing /GI-Improve/Maintain Start: 08/16/17 00:18 Freq: DAILY Status: Active Target: Protocol: Activity Type Activity Date Activity User E-Sign Co-Sign Detail Recorded Client Recorded Date Recorded By Document 08/17/17 18:44 [id number] 08/17/17 18:47 [id number] 08/17/17 18:44 PMRU Outcome: Genitourinary/ Gastrointestinal Genitourinary- Outcome/Goals Maintain/ Achieve Urinary Continence Remain Free of Hospital- Acquired UTI Gastrointestinal-Outcome/Goals Prevent Constipation Laxatives as Ordered Progression Toward Outcome/Goals - Progressing Progression Toward Outcome/Goals - GI Progressing Outcome/Goals Met Comment patient incontinent of bm this am, toileting schedule in place Metabolic Status- Improve/Maintain Start: 08/16/17 00:18 Freq: DAILY Status: Active Target: Protocol: Activity Type Activity Date Activity User E-Sign Co-Sign Detail Recorded Client Recorded Date Recorded By Document 08/17/17 18:44 [id number] 08/17/17 18:47 [id number] 08/17/17 18:44 PMRU Outcome: Metabolic Status Have Fingersticks Been Ordered Yes Fingerstick Order Frequency AC & HS Outcome/Goals Maintain/ Improve Metabolic Status Progression Toward Outcome/Goals Progressing Mobility- Improve/Maintain Start: 08/16/17 14:20 Freq: DAILY Status: Active Target: Protocol: Activity Type Activity Date Activity User E-Sign Co-Sign Detail Recorded Client Recorded Date Recorded By Document 08/17/17 17:02 [id number] 08/17/17 17:02 [id number] 08/17/17 17:02 PMRU Outcome: Mobility Physical Therapy Evaluation and Yes Treatment Activity OOB with Assistance Yes Device Yes Assistance Yes Patient to be seen 5x/wk for 60-120 min/ Therex day for: Mobility Training Gait Training Balance Outcome/Goals Maintain/ Achieve Baseline Mobility Status Improve Mobility Status Demonstrates Proper Use of Assistive Devices Free from Complications of Immobility Progression Toward Outcome/Goals Progressing Bed Mobility Yes: independent Transfers Yes: independent with RW Gait x ft Yes: independent with RW 300' Up/Down Stairs Yes: independent up/ down 5 stairs with L side rail Neurological- Improve/Maintain Start: 08/16/17 00:18 Freq: DAILY Status: Active Target: Protocol: Activity Type Activity Date Activity User E-Sign Co-Sign Detail Recorded Client Recorded Date Recorded By Document 08/17/17 18:44 [id number] 08/17/17 18:47 [id number] 08/17/17 18:44 PMRU Outcome: Neurological Weakness/Aphasia Weakness Outcome/Goals Maintain/ Achieve Baseline Neurological Status Maintain/ Improve Strength/ROM Progression Toward Outcome/Goals Progressing Safety- Improve/Maintain Start: 08/16/17 00:18 Freq: DAILY Status: Active Target: Protocol: Activity Type Activity Date Activity User E-Sign Co-Sign Detail Recorded Client Recorded Date Recorded By Document 08/17/17 18:44 [id number] 08/17/17 18:47 [id number] 08/17/17 18:44 PMRU Outcome: Safety Outcome/Goals Remain Free of Injury or Harm Cooperates with Safety Measures for Least Restrictive Environment Prevent Falls/ Injury Progression Toward Outcome/Goals Progressing Outcome/Goals Met Comment PA in place Medicine Note: Length of Stay: 6 days Anticipated Discharge Destination: Home Tentative Discharge Date: 08/24/17 Discharged to: home
--- NOTE | 2017-08-18 17:25 | PN ---
Progress Note - Progress Note Date of Service: 08/18/17 Note: Guillermo visited. She was discussed in interdisciplinary plan of care rounds. Some concerns about her memory and her ability to live independently. I spoke with neurology who wants to see how she does on Sinemet after 4 weeks. Current Medications Acetaminophen (Tylenol Tab*) 650 mg PO Q6H PRN PRN Reason: FEVER/PAIN Carbidopa/Levodopa (Sinemet 25/100 Tab(*)) 1 tab PO TID [facility] Last Admin: 08/18/17 14:04 Dose: 1 tab Citalopram Hydrobromide (Celexa Tab*) 40 mg PO DAILY [facility] Last Admin: 08/18/17 08:57 Dose: 40 mg Dextrose (D50w Syringe 50 Ml*) 12.5 gm IV PUSH .FOR FS < 60 - SS PRN PRN Reason: FS < 60 Diltiazem HCl (Cardizem Cd Cap*) 360 mg PO DAILY [facility] Last Admin: 08/18/17 08:58 Dose: 360 mg Docusate Sodium (Colace Cap*) 100 mg PO BID [facility] Last Admin: 08/18/17 08:58 Dose: 100 mg Glipizide (Glucotrol Tab*) 5 mg PO 0800,1700 [facility] Last Admin: 08/18/17 08:58 Dose: 5 mg Heparin Sodium (Porcine) (Heparin Vial(*)) 5,000 units SUBCUT Q8HR [facility] Last Admin: 08/18/17 14:04 Dose: 5,000 units Insulin Glargine (Lantus(*)) 14 units SUBCUT Q24H [facility] Last Admin: 08/17/17 21:27 Dose: 14 units Insulin Human Lispro (Humalog*) 0 - 10 units SUBCUT ACHS [facility] PRN Reason: Protocol Last Admin: 08/18/17 16:18 Dose: Not Given Levothyroxine Sodium (Synthroid Tab*) 100 mcg PO DAILY@0600 [facility] Last Admin: 08/18/17 06:05 Dose: 100 mcg Magnesium Hydroxide (Milk Of Magnesia Liq*) 30 ml PO Q6H PRN PRN Reason: CONSTIPATION Metformin HCl (Glucophage*) 1,000 mg PO 0800,1700 [facility] Last Admin: 08/18/17 08:58 Dose: 1,000 mg Ramipril (Altace Cap*) 5 mg PO DAILY [facility] Last Admin: 08/18/17 08:57 Dose: 5 mg Senna (Senokot Tab*) 2 tab PO BEDTIME PRN PRN Reason: CONSTIPATION Glucose Results Blood Glucose Monitoring POC Start: 08/15/17 16: 34 Freq: ACHS Status: Active Protocol: Document 08/17/17 16:30 [id number] (Rec: 08/17/17 17:12 [id number]) Blood Glucose Monitoring POC Glucose Obtained Yes Glucose Result Being Addressed/Treated ( 97 mg/dL) Blood Glucose Method POC Glucose (bedside) Document 08/17/17 21:00 [id number] (Rec: 08/17/17 21:33 [id number]) Blood Glucose Monitoring POC Glucose Obtained Yes Glucose Result Being Addressed/Treated ( 154 mg/dL) Blood Glucose Method POC Glucose (bedside) Document 08/18/17 07:27 [id number] (Rec: 08/18/17 07:28 [id number]) Blood Glucose Monitoring POC Glucose Obtained Yes Glucose Result Being Addressed/Treated ( 139 mg/dL) Blood Glucose Method POC Glucose (bedside) Document 08/18/17 11:30 [id number] (Rec: 08/18/17 11:32 [id number]) Blood Glucose Monitoring POC Glucose Obtained Yes Glucose Result Being Addressed/Treated ( 150 mg/dL) Blood Glucose Method POC Glucose (bedside) Document 08/18/17 16:22 [id number] (Rec: 08/18/17 16:23 [id number]) Blood Glucose Monitoring POC Glucose Obtained Yes Glucose Result Being Addressed/Treated ( 120 mg/dL) Blood Glucose Method POC Glucose (bedside) Vital Signs Temp Pulse Resp BP Pulse Ox 98.5 F 79 18 137/54 93 08/18/17 15:38 08/18/17 15:38 08/18/17 15:38 08/18/17 15:38 08/18/17 15:38 EXAM: LUNGS: Clear bilaterally HEART: reg rhythm ABDOMEN: Soft NEUROLOGIC: alert. 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 Gait better. PT/OT/CHEMIST INSTRUMENTATION. Follow Cognition 2. Diabetes: Glipizide/Metformin/Lantus/SSI 3. Hypothyroidism: Synthroid 4. DVT Prophylaxis: S/Q Heparin 5. HTN: Altace/Diltiazem 6. Advanced directives: Full Code
[2017-08-18] MEDS: Insulin GLARGINE(*) 1 UNITS UNIT SUBCUT SCH (21:22)
[2017-08-19] MEDS: Heparin VIAL(*) 5000 UNITS/ML VIAL (FIVE THOUSAND) SUBCUT SCH ×3 (05:04→20:57)
[2017-08-19] MEDS: Levothyroxine TAB* 100 MCG TAB PO SCH (05:06)
[2017-08-19] MEDS: glipiZIDE TAB* 5 MG PO SCH ×2 (07:57→17:33)
[2017-08-19] MEDS: metFORMIN* 1,000 MG TAB PO SCH ×2 (07:57→17:33)
[2017-08-19] MEDS: Ramipril CAP* 5 MG PO SCH (07:57)
[2017-08-19] MEDS: Diltiazem CD CAP* 180 MG PO SCH (07:58)
[2017-08-19] MEDS: Citalopram TAB* 40 MG PO SCH (07:58)
[2017-08-19] MEDS: Insulin LISPRO* 1 UNITS UNIT SUBCUT SCH ×4 (08:06→20:48)
[2017-08-19] MEDS: Docusate CAP* 100 MG PO SCH ×2 (08:41→20:54)
[2017-08-19] MEDS: Carbidopa/Levodop 25/100 MG TAB(*) PO SCH ×3 (09:30→20:55)
--- NOTE | 2017-08-19 14:56 | PN ---
Progress Note - Progress Note Date of Service: 08/19/17 Note: Guillermo visited. She tells me she took Enablex at home prior to coming in and would like to go back on it. Therapy notes read and reviewed. Memory still problematic Current Medications Acetaminophen (Tylenol Tab*) 650 mg PO Q6H PRN PRN Reason: FEVER/PAIN Carbidopa/Levodopa (Sinemet 25/100 Tab(*)) 1 tab PO TID [facility] Last Admin: 08/19/17 14:23 Dose: 1 tab Citalopram Hydrobromide (Celexa Tab*) 40 mg PO DAILY [facility] Last Admin: 08/19/17 07:58 Dose: 40 mg Darifenacin (Enablex(Nf)) 15 mg PO DAILY [facility] Dextrose (D50w Syringe 50 Ml*) 12.5 gm IV PUSH .FOR FS < 60 - SS PRN PRN Reason: FS < 60 Diltiazem HCl (Cardizem Cd Cap*) 360 mg PO DAILY [facility] Last Admin: 08/19/17 07:58 Dose: 360 mg Docusate Sodium (Colace Cap*) 100 mg PO BID [facility] Last Admin: 08/19/17 08:41 Dose: Not Given Glipizide (Glucotrol Tab*) 5 mg PO 0800,1700 [facility] Last Admin: 08/19/17 07:57 Dose: 5 mg Heparin Sodium (Porcine) (Heparin Vial(*)) 5,000 units SUBCUT Q8HR [facility] Last Admin: 08/19/17 14:25 Dose: 5,000 units Insulin Glargine (Lantus(*)) 14 units SUBCUT Q24H [facility] Last Admin: 08/18/17 21:22 Dose: 14 units Insulin Human Lispro (Humalog*) 0 - 10 units SUBCUT ACHS [facility] PRN Reason: Protocol Last Admin: 08/19/17 12:26 Dose: 1 unit Levothyroxine Sodium (Synthroid Tab*) 100 mcg PO DAILY@0600 [facility] Last Admin: 08/19/17 05:06 Dose: 100 mcg Magnesium Hydroxide (Milk Of Magnesia Liq*) 30 ml PO Q6H PRN PRN Reason: CONSTIPATION Metformin HCl (Glucophage*) 1,000 mg PO 0800,1700 [facility] Last Admin: 08/19/17 07:57 Dose: 1,000 mg Ramipril (Altace Cap*) 5 mg PO DAILY [facility] Last Admin: 08/19/17 07:57 Dose: 5 mg Senna (Senokot Tab*) 2 tab PO BEDTIME PRN PRN Reason: CONSTIPATION Glucose Results Blood Glucose Monitoring POC Start: 08/15/17 16: 34 Freq: ACHS Status: Active Protocol: Document 08/18/17 11:30 [id number] (Rec: 08/18/17 11:32 [id number]) Blood Glucose Monitoring POC Glucose Obtained Yes Glucose Result Being Addressed/Treated ( 150 mg/dL) Blood Glucose Method POC Glucose (bedside) Document 08/18/17 16:22 [id number] (Rec: 08/18/17 16:23 [id number]) Blood Glucose Monitoring POC Glucose Obtained Yes Glucose Result Being Addressed/Treated ( 120 mg/dL) Blood Glucose Method POC Glucose (bedside) Document 08/19/17 07:30 [id number] (Rec: 08/19/17 07:37 [id number] [facility]) Blood Glucose Monitoring POC Glucose Obtained Yes Glucose Result Being Addressed/Treated ( 144 mg/dL) Blood Glucose Method POC Glucose (bedside) Additional Actions Taken Other Document 08/19/17 11:30 [id number] (Rec: 08/19/17 11:55 [id number] [facility]-C07) Blood Glucose Monitoring POC Glucose Obtained Yes Glucose Result Being Addressed/Treated ( 143 mg/dL) Blood Glucose Method POC Glucose (bedside) Additional Actions Taken Other Vital Signs Temp Pulse Resp BP Pulse Ox 98.2 F 68 16 149/57 95 08/19/17 05:07 08/19/17 05:07 08/19/17 05:11 08/19/17 05:07 08/19/17 05:11 EXAM: LUNGS: Clear bilaterally HEART: reg rhythm ABDOMEN: Soft NEUROLOGIC: alert. 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 Gait better. 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 Diabetes: Glipizide/Metformin/Lantus/SSI 3. Hypothyroidism: Synthroid 4. DVT Prophylaxis: S/Q Heparin 5. HTN: Altace/Diltiazem 6. Advanced directives: Full Code 7. Incontinence: will resume Enablex
[2017-08-19] MEDS: Insulin GLARGINE(*) 1 UNITS UNIT SUBCUT SCH (20:55)
[2017-08-20] MEDS: Heparin VIAL(*) 5000 UNITS/ML VIAL (FIVE THOUSAND) SUBCUT SCH ×3 (04:54→20:58)
[2017-08-20] MEDS: Levothyroxine TAB* 100 MCG TAB PO SCH (04:56)
[2017-08-20] MEDS: metFORMIN* 1,000 MG TAB PO SCH ×2 (08:18→17:12)
[2017-08-20] MEDS: Ramipril CAP* 5 MG PO SCH (08:18)
[2017-08-20] MEDS: glipiZIDE TAB* 5 MG PO SCH ×2 (08:18→17:12)
[2017-08-20] MEDS: Citalopram TAB* 40 MG PO SCH (08:19)
[2017-08-20] MEDS: DARIFENACIN 15 MG PO SCH (08:19)
[2017-08-20] MEDS: Carbidopa/Levodop 25/100 MG TAB(*) PO SCH ×3 (08:19→20:55)
[2017-08-20] MEDS: Diltiazem CD CAP* 180 MG PO SCH (08:19)
[2017-08-20] MEDS: Insulin LISPRO* 1 UNITS UNIT SUBCUT SCH ×4 (08:20→20:57)
[2017-08-20] MEDS: Docusate CAP* 100 MG PO SCH ×2 (08:20→20:54)
--- NOTE | 2017-08-20 13:33 | PN ---
Progress Note - Progress Note Date of Service: 08/20/17 Note: Guillermo visited. Nursing notes reviewed. Started Enablex today and was continent of both bowel and bladder. Will follow. Current Medications Acetaminophen (Tylenol Tab*) 650 mg PO Q6H PRN PRN Reason: FEVER/PAIN Carbidopa/Levodopa (Sinemet 25/100 Tab(*)) 1 tab PO TID [facility] Last Admin: 08/20/17 08:19 Dose: 1 tab Citalopram Hydrobromide (Celexa Tab*) 40 mg PO DAILY [facility] Last Admin: 08/20/17 08:19 Dose: 40 mg Darifenacin (Enablex (Nf)) 15 mg PO DAILY [facility] Last Admin: 08/20/17 08:19 Dose: 15 mg Dextrose (D50w Syringe 50 Ml*) 12.5 gm IV PUSH .FOR FS < 60 - SS PRN PRN Reason: FS < 60 Diltiazem HCl (Cardizem Cd Cap*) 360 mg PO DAILY [facility] Last Admin: 08/20/17 08:19 Dose: 360 mg Docusate Sodium (Colace Cap*) 100 mg PO BID [facility] Last Admin: 08/20/17 08:20 Dose: Not Given Glipizide (Glucotrol Tab*) 5 mg PO 0800,1700 [facility] Last Admin: 08/20/17 08:18 Dose: 5 mg Heparin Sodium (Porcine) (Heparin Vial(*)) 5,000 units SUBCUT Q8HR [facility] Last Admin: 08/20/17 04:54 Dose: 5,000 units Insulin Glargine (Lantus(*)) 14 units SUBCUT Q24H [facility] Last Admin: 08/19/17 20:55 Dose: 14 units Insulin Human Lispro (Humalog*) 0 - 10 units SUBCUT ACHS [facility] PRN Reason: Protocol Last Admin: 08/20/17 11:49 Dose: Not Given Levothyroxine Sodium (Synthroid Tab*) 100 mcg PO DAILY@0600 [facility] Last Admin: 08/20/17 04:56 Dose: 100 mcg Magnesium Hydroxide (Milk Of Magnesia Liq*) 30 ml PO Q6H PRN PRN Reason: CONSTIPATION Metformin HCl (Glucophage*) 1,000 mg PO 0800,1700 [facility] Last Admin: 08/20/17 08:18 Dose: 1,000 mg Ramipril (Altace Cap*) 5 mg PO DAILY [facility] Last Admin: 08/20/17 08:18 Dose: 5 mg Senna (Senokot Tab*) 2 tab PO BEDTIME PRN PRN Reason: CONSTIPATION Glucose Results Blood Glucose Monitoring POC Start: 08/15/17 16: 34 Freq: ACHS Status: Active Protocol: Document 08/19/17 16:30 [id number] (Rec: 08/19/17 16:42 [id number] [facility]-C07) Blood Glucose Monitoring POC Glucose Obtained Yes Glucose Result Being Addressed/Treated ( 157 mg/dL) Blood Glucose Method POC Glucose (bedside) Additional Actions Taken Other Document 08/19/17 20:29 [id number] (Rec: 08/19/17 21:28 [id number] [facility]-C03) Blood Glucose Monitoring POC Glucose Obtained Yes Glucose Result Being Addressed/Treated ( 120 mg/dL) Blood Glucose Method POC Glucose (bedside) Document 08/20/17 07:30 [id number] (Rec: 08/20/17 07:55 [id number] [facility]-C07) Blood Glucose Monitoring POC Glucose Obtained Yes Glucose Result Being Addressed/Treated ( 161 mg/dL) Blood Glucose Method POC Glucose (bedside) Additional Actions Taken Other Document 08/20/17 11:30 [id number] (Rec: 08/20/17 11:49 [id number] [facility]C07) Blood Glucose Monitoring POC Glucose Obtained Yes Glucose Result Being Addressed/Treated ( 98 mg/dL) Blood Glucose Method POC Glucose (bedside) Additional Actions Taken Nurse Notified Vital Signs Temp Pulse Resp BP Pulse Ox 97.4 F 68 20 152/73 98 08/20/17 04:48 08/20/17 04:48 08/20/17 07:55 08/20/17 04:48 08/20/17 08:00 EXAM: LUNGS: Clear bilaterally HEART: reg rhythm ABDOMEN: Soft NEUROLOGIC: alert. 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 Gait better. 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 Diabetes: Glipizide/Metformin/Lantus/SSI 3. Hypothyroidism: Synthroid 4. DVT Prophylaxis: S/Q Heparin 5. HTN: Altace/Diltiazem 6. Advanced directives: Full Code 7. Incontinence: better on Enablex
[2017-08-20] MEDS: Insulin GLARGINE(*) 1 UNITS UNIT SUBCUT SCH (20:56)
[2017-08-21] MEDS: Heparin VIAL(*) 5000 UNITS/ML VIAL (FIVE THOUSAND) SUBCUT SCH ×3 (05:11→21:06)
[2017-08-21] MEDS: Levothyroxine TAB* 100 MCG TAB PO SCH (05:11)
[2017-08-21] MEDS: Insulin LISPRO* 1 UNITS UNIT SUBCUT SCH ×4 (07:35→21:05)
[2017-08-21] MEDS: Docusate CAP* 100 MG PO SCH ×2 (09:07→19:55)
[2017-08-21] MEDS: DARIFENACIN 15 MG PO SCH (09:08)
[2017-08-21] MEDS: Diltiazem CD CAP* 180 MG PO SCH (09:08)
[2017-08-21] MEDS: Citalopram TAB* 40 MG PO SCH (09:09)
[2017-08-21] MEDS: glipiZIDE TAB* 5 MG PO SCH ×2 (09:09→17:20)
[2017-08-21] MEDS: metFORMIN* 1,000 MG TAB PO SCH ×2 (09:09→17:20)
[2017-08-21] MEDS: Carbidopa/Levodop 25/100 MG TAB(*) PO SCH ×3 (09:09→21:05)
[2017-08-21] MEDS: Ramipril CAP* 5 MG PO SCH (09:09)
--- NOTE | 2017-08-21 16:33 | PN ---
Progress Note - Progress Note Date of Service: 08/21/17 Note: Guillermo visited. Therapy notes reviewed. There remain concerns about memory. Will likely need a meeting prior to determining where best to discharge to. Current Medications Acetaminophen (Tylenol Tab*) 650 mg PO Q6H PRN PRN Reason: FEVER/PAIN Carbidopa/Levodopa (Sinemet 25/100 Tab(*)) 1 tab PO TID [facility] Last Admin: 08/21/17 13:50 Dose: 1 tab Citalopram Hydrobromide (Celexa Tab*) 40 mg PO DAILY [facility] Last Admin: 08/21/17 09:09 Dose: 40 mg Darifenacin (Enablex (Nf)) 15 mg PO DAILY [facility] Last Admin: 08/21/17 09:08 Dose: 15 mg Dextrose (D50w Syringe 50 Ml*) 12.5 gm IV PUSH .FOR FS < 60 - SS PRN PRN Reason: FS < 60 Diltiazem HCl (Cardizem Cd Cap*) 360 mg PO DAILY [facility] Last Admin: 08/21/17 09:08 Dose: 360 mg Docusate Sodium (Colace Cap*) 100 mg PO BID [facility] Last Admin: 08/21/17 09:07 Dose: Not Given Glipizide (Glucotrol Tab*) 5 mg PO 0800,1700 [facility] Last Admin: 08/21/17 09:09 Dose: 5 mg Heparin Sodium (Porcine) (Heparin Vial(*)) 5,000 units SUBCUT Q8HR [facility] Last Admin: 08/21/17 13:50 Dose: 5,000 units Insulin Glargine (Lantus(*)) 14 units SUBCUT Q24H [facility] Last Admin: 08/20/17 20:56 Dose: 14 units Insulin Human Lispro (Humalog*) 0 - 10 units SUBCUT ACHS [facility] PRN Reason: Protocol Last Admin: 08/21/17 12:04 Dose: Not Given Levothyroxine Sodium (Synthroid Tab*) 100 mcg PO DAILY@0600 [facility] Last Admin: 08/21/17 05:11 Dose: 100 mcg Magnesium Hydroxide (Milk Of Magnesia Liq*) 30 ml PO Q6H PRN PRN Reason: CONSTIPATION Metformin HCl (Glucophage*) 1,000 mg PO 0800,1700 [facility] Last Admin: 08/21/17 09:09 Dose: 1,000 mg Ramipril (Altace Cap*) 5 mg PO DAILY [facility] Last Admin: 08/21/17 09:09 Dose: 5 mg Senna (Senokot Tab*) 2 tab PO BEDTIME PRN PRN Reason: CONSTIPATION Glucose Results Blood Glucose Monitoring POC Start: 08/15/17 16: 34 Freq: ACHS Status: Active Protocol: Document 08/20/17 20:28 [id number] (Rec: 08/20/17 20:28 [id number] [facility]C03) Blood Glucose Monitoring POC Glucose Obtained Yes Glucose Result Being Addressed/Treated ( 148 mg/dL) Blood Glucose Method POC Glucose (bedside) Document 08/21/17 07:08 [id number] (Rec: 08/21/17 07:08 [id number] [facility]-C07) Blood Glucose Monitoring POC Glucose Obtained Yes Glucose Result Being Addressed/Treated ( 142 mg/dL) Blood Glucose Method POC Glucose (bedside) Document 08/21/17 12:03 [id number] (Rec: 08/21/17 12:03 [id number] [facility]07) Blood Glucose Monitoring POC Glucose Obtained Yes Glucose Result Being Addressed/Treated ( 72 mg/dL) Blood Glucose Method POC Glucose (bedside) Document 08/21/17 16:28 [id number] (Rec: 08/21/17 16:28 [id number] [facility]-M02) Blood Glucose Monitoring POC Glucose Obtained Yes Glucose Result Being Addressed/Treated ( 133 mg/dL) Blood Glucose Method POC Glucose (bedside) Vital Signs Temp Pulse Resp BP Pulse Ox 98.2 F 78 20 152/68 97 08/21/17 05:15 08/21/17 05:15 08/21/17 05:15 08/21/17 05:15 08/21/17 05:15 EXAM: LUNGS: Clear bilaterally HEART: reg rhythm ABDOMEN: Soft NEUROLOGIC: alert. 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 Gait better. 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 Diabetes: Glipizide/Metformin/Lantus/SSI 3. Hypothyroidism: Synthroid 4. DVT Prophylaxis: S/Q Heparin 5. HTN: Altace/Diltiazem 6. Advanced directives: Full Code 7. Incontinence: better on Enablex
[2017-08-21] MEDS: Insulin GLARGINE(*) 1 UNITS UNIT SUBCUT SCH (21:05)
[2017-08-22] MEDS: Levothyroxine TAB* 100 MCG TAB PO SCH (05:28)
[2017-08-22] MEDS: Heparin VIAL(*) 5000 UNITS/ML VIAL (FIVE THOUSAND) SUBCUT SCH ×3 (05:28→21:30)
[2017-08-22] MEDS: metFORMIN* 1,000 MG TAB PO SCH ×2 (08:30→17:02)
[2017-08-22] MEDS: Ramipril CAP* 5 MG PO SCH (08:30)
[2017-08-22] MEDS: glipiZIDE TAB* 5 MG PO SCH ×2 (08:30→17:02)
[2017-08-22] MEDS: DARIFENACIN 15 MG PO SCH (08:30)
[2017-08-22] MEDS: Citalopram TAB* 40 MG PO SCH (08:30)
[2017-08-22] MEDS: Diltiazem CD CAP* 180 MG PO SCH (08:30)
[2017-08-22] MEDS: Carbidopa/Levodop 25/100 MG TAB(*) PO SCH ×3 (08:30→21:30)
[2017-08-22] MEDS: Insulin LISPRO* 1 UNITS UNIT SUBCUT SCH ×4 (08:31→21:30)
[2017-08-22] MEDS: Docusate CAP* 100 MG PO SCH ×2 (08:35→21:36)
--- NOTE | 2017-08-22 12:40 | PMRUTEAM ---
PMRU: Goals Current Status: Nursing: Current Status Skin Deviations [Right Abdomen Abrasion ] Skin Deviations [Left Abdomen] Abrasion Skin Deviations [Bilateral Rash Breast] Skin Deviations [Bilateral Abrasion Knee] Skin Deviation Description [ Dressing CD&I Right Abdomen] Skin Deviation Description [ scratch-healing Left Abdomen] Skin Deviation Description [ Skin prep pads applied, redness deacreasing Bilateral Breast] Skin Deviation Description [ Dressings CD&I Bilateral Knee] Physical Therapy: Current Status Bed Mobility Assistance Supervision Transfer Moblility Assistance Supervision Transfer/Bed Mobility Rolling Walker Recommended Devices Ambulation Assistance Supervision Ambulation Assistive Devices Rolling Walker Number of Feet Patient 300' Ambulated Stairs Assistance Supervision Stairs Recommended Devices Two Rails Number of Stairs 5 Occupational Therapy: Current Status Upper Body Dressing Supervision Lower Body Dressing Supervision Bathing Supervision Toileting Supervision Toilet Transfer Supervision Shower Transfer Supervision Eating Independent Instrumental ADL Pt brought to OT kitchen via w/c, agreeable to participate in cooking activity. Pt required assist to retrieve severino and knife from cupboard and cabinet, required cues to maintain position within walker and not transport items while walking using countertop to move items from place to place. Pt initially turned heat on stove to high, then placed hand on severino to check for heat, pt advised by this movie writer that stove top was lighting up red, so heat was on. Pt initially attempted to butter bread using knife, butter slightly hard and pt putting holes in bread to complete, pt advised prior that butter could be heated to make it softer, for 2nd piece of bread, pt placed butter directly into severino and then placed bread on top, cooking very quickly, movie writer advised patient that heat was on high, when asked if she wanted it on high, pt stated, "oh, no I don 't," and this movie writer turned heat down to med-low. Pt initially attempting to utilize knife and fingers to turn bread for sandwich, asked if she would like a different utensil, required cues to use walker to walk to drawer, pt able to find spatula and utilize well to turn sandwich and remove from severino. Twice during activity when pt reaching for items, this movie writer placed her hand under pt's right forearm due to fear of pt accidentally coming in contact with hot severino for safety. After activity, this movie writer asked pt how she felt the activity went, pt gave thumbs down sign, but unable to state why she felt it did not go well. Rec Therapy: Current Status Summary of Assessment and RT assessment complete and pt. is aware of RT Clinical Impression services. Pt. presents as dysphoric and slightly irritable during sessions but is appropriate and communicates. Pt. voiced frustration with not knowing the details of her d/c plan, movie writer informed unit social scientist. Pt. has been open to continued leisure visits. Treatment Goals Pt. will engage in leisure activities while on the unit. Treatment Plan Provide RT services and encourage involvement. Social Work: Current Status Discharge Plan return home with home care svs and support from friends Potential for Family Training n/a Anticipated Discharge Home Destination Discharge With VNS and support from friends Nutrition: Current Status Monitoring pt consistently eating 100% of meals; consistent carb diet remains appropriate. FS well-controlled , ranging 130s-150s. Bowel pattern ok; last BM . Some confusion noted. Appears to be meeting goals as outlined below. Speech: Current Status Assessment The patient exhibited deficits with functional complex comprehension, including temporal orientation and recall of information if asked to place in reverse order. These deficits were evident within verbal problems that were focused on medication management, functional use of calendars/planning, and financial planning. The patient continues to require skilled speech- language pathology services to address complex language comprehension, expressive language, and functional cognitive-linguistic tasks in order to maximize function and independence in order to safely return home. Goals: Physical Therapy: Initial Goals Bed Mobility Assistance Independent Transfer Mobility Assistance Independent Transfer/Bed Mobility Rolling Walker Recommended Devices Ambulation Independent Ambulation Recommended Devices Rolling Walker Ambulation Distance 300 Wheelchair Propulsion Ability Independent Stairs Assistance Independent Stair Recommended Devices One Rail Number of Stairs 5 Physical Therapy: Updated Goals Transfer/Bed Mobility Rolling Walker Recommended Devices Occupational Therapy: Initial Goals Goals to be Completed in (Days 5-10 ) Upper Body Bathing Routine Modified Independent with Lower Body Bathing Routine Modified Independent with Upper Body Dressing Routine Modified Independent with Lower Body Dressing Routine Modified Independent with Toilet Hygeine and Clothing Modified Independent with Management Routine Toilet Transfer Routine Modified Independent with Step-In Shower Transfer Modified Independent with Routine Functional Transfers for ADL Modified Independent with Grooming Routine Modified Independent with Feeding Routine Modified Independent with Light Housekeeping Tasks Modified Independent with Nutrition: Goals Intervention Goals 1. adequate po intake to support hydration and lean body mass without add'l wt gain 2. glycemic control within inpatient parameters; no s/sx hypo-hyperglycemia 3. regulation of bowel pattern; no c/o constipation (or diarrhea) Speech: Goals Speech Goal 1 Memory Goal 1 Comments Long-Term Goal: Pt will use compensatory strategies to encode and retrieve 4/4 new items after delay of 30 minutes, Independently, for independence in mobility safety, ADLs and community access. Short-term Goal: Pt will use compensatory strategies to encode and retrieve 3/4 new items after delay of 5 minutes, given Moderate skilled instruction and cueing. Status: *Patient unable to recall strategies taught and practiced three days ago; when worksheet was presented as visual cue, patient continued to state unfamiliarity with the information. *Advanced 3-unit sequences, digits: 90% accuracy, no cues. *Advanced 2-unit sequences, digits; reversed: 80% accuracy, no cues. *Advanced 3-unit sequences, digits; reversed: 40% accuracy, no cues. *Using repetition x2, patient able to recall digits in 2/3 opportunities; however, sequence continued to be completed in error. Ongoing Speech Goal 2 Problem Solving Speech Goal 2 Comments Long-Term Goal: Pt will use compensatory strategies to solve moderately complex routine problems, with 100% accuracy, Independently, for ADLs such as shopping, time and money management. Short-Term Goal: Pt will use compensatory strategies to solve moderately complex routine problems, with 80% accuracy, given Moderate skilled instruction and cueing. Status: Temporal orientation: 60% accuracy, significant extra time provided for processing of complex direction; minimal-no cues. Areas of difficulty noted to be in multi-step math computations, functional use of dates/calendar and schedule planning, and medication administration. Ongoing Speech Goal 3 Comprehension Speech Goal 3 Comments Long-Term Goal: Pt will use compensatory strategies to demonstrate comprehension of paragraph length verbal and written information of moderate complexity, 100% accuracy, given minimal extra time, Independently. Short-Term Goal: Pt will use compensatory strategies to demonstrate comprehension of paragraph length verbal and written information of simple complexity, 90% accuracy, given moderate extra time, and Moderate skilled instruction and cueing. Status: Complex comprehension tasks provided within memory and problem solving activities as stated above. Ongoing Social Work: Goals Discharge Plan return home with home care svs and support from friends Potential for Family Training n/a Anticipated Discharge Home Destination Discharge With VNS and support from friends Care Plan: Care Plan ADL's - Improve/Maintain Start: 01/17/18 00:18 Freq: DAILY Status: Active Target: Protocol: Activity Type Activity Date Activity User E-Sign Co-Sign Detail Recorded Client Recorded Date Recorded By Document 08/21/17 13:57 [id number] 08/21/17 13:57 [id number] 08/21/17 13:57 PMRU Outcome: ADL's/ADL Transfers Orders/Interventions Occupational Therapy Evaluation & Treatment Communication Tool in Patient Room Device Yes Address Deficits 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 Communication-Improve/Maintain Start: 08/18/17 18:35 Freq: DAILY Status: Active Target: Protocol: Activity Type Activity Date Activity User E-Sign Co-Sign Detail Recorded Client Recorded Date Recorded By Document 08/22/17 11:18 [id number] 08/22/17 11:18 [id number] 08/22/17 11:18 PMRU Outcome: Communication/Cognitive Status Outcome/Goals Makes Needs Known Effectively Other Other Outcomes/Goals Memory: Long-Term Goal: Pt will use compensatory strategies to encode and retrieve 4/4 new items after delay of 30 minutes, Independently, for independence in mobility safety, ADLs and community access. Problem Solving : Long-Term Goal: Pt will use compensatory strategies to solve moderately complex routine problems, with 100% accuracy, Independently, for ADLs such as shopping, time and money management. Comprehension: Long-Term Goal: Pt will use compensatory strategies to demonstrate comprehension of paragraph length verbal and written information of moderate complexity, 100 % accuracy, given minimal extra time, Independently. Outcome/Goals Met Comment The patient exhibited deficits with functional complex comprehension, including temporal orientation and recall of information if asked to place in reverse order. These deficits were evident within verbal problems that were focused on medication management, functional use of calendars/ planning, and financial planning. The patient continues to require skilled speech- language pathology services to address complex language comprehension, expressive language, and functional cognitive- linguistic tasks in order to maximize function and independence in order to safely return home. DVT Prophylaxis- Improve/Maintain Start: 08/16/17 00:18 Freq: DAILY Status: Active Target: Protocol: Activity Type Activity Date Activity User E-Sign Co-Sign Detail Recorded Client Recorded Date Recorded By Document 08/22/17 11:18 [id number] 08/22/17 11:18 [id number] 08/22/17 11:18 PMRU Outcome: DVT Prophylaxis Outcome/Goals Remains Free of DVT Free of complications from current DVT TEDS Stockings on Every AM, Off at HS Progression Toward Outcome/Goals Progressing Discharge Planning - Improve/Maintain Start: 08/16/17 00:18 Freq: DAILY Status: Active Target: Protocol: Activity Type Activity Date Activity User E-Sign Co-Sign Detail Recorded Client Recorded Date Recorded By Document 08/22/17 11:18 [id number] 08/22/17 11:18 [id number] 08/22/17 11:18 PMRU Outcome: Discharge Planning Identify Patient Needs yes Update Patient Family No Outcome/Goals Demonstrates Understanding of Discharge Plan Progression Toward Outcome/Goals Progressing /GI-Improve/Maintain Start: 08/16/17 00:18 Freq: DAILY Status: Active Target: Protocol: Activity Type Activity Date Activity User E-Sign Co-Sign Detail Recorded Client Recorded Date Recorded By Document 08/22/17 11:18 [id number] 08/22/17 11:18 [id number] 08/22/17 11:18 PMRU Outcome: Genitourinary/ Gastrointestinal Genitourinary- Outcome/Goals Maintain/ Achieve Urinary Continence Remain Free of Hospital- Acquired UTI Gastrointestinal-Outcome/Goals Prevent Constipation Laxatives as Ordered Progression Toward Outcome/Goals - Progressing Progression Toward Outcome/Goals - GI Progressing Outcome/Goals Met Comment stress incontinence only at this time since pt started taking home medication Metabolic Status- Improve/Maintain Start: 08/16/17 00:18 Freq: DAILY Status: Active Target: Protocol: Activity Type Activity Date Activity User E-Sign Co-Sign Detail Recorded Client Recorded Date Recorded By Document 08/22/17 11:18 [id number] 08/22/17 11:18 [id number] 08/22/17 11:18 PMRU Outcome: Metabolic Status Have Fingersticks Been Ordered Yes Fingerstick Order Frequency AC & HS Outcome/Goals Maintain/ Improve Metabolic Status Progression Toward Outcome/Goals Progressing Mobility- Improve/Maintain Start: 08/16/17 14:20 Freq: DAILY Status: Active Target: Protocol: Activity Type Activity Date Activity User E-Sign Co-Sign Detail Recorded Client Recorded Date Recorded By Document 08/21/17 12:23 [id number] 08/21/17 12:23 [id number] 08/21/17 12:23 PMRU Outcome: Mobility Physical Therapy Evaluation and Yes Treatment Activity OOB with Assistance Yes Device Yes Assistance Yes Patient to be seen 5x/wk for 60-120 min/ Therex day for: Mobility Training Gait Training Balance Outcome/Goals Maintain/ Achieve Baseline Mobility Status Improve Mobility Status Demonstrates Proper Use of Assistive Devices Free from Complications of Immobility Progression Toward Outcome/Goals Progressing Bed Mobility Yes: independent Transfers Yes: independent with RW Gait x ft Yes: independent with RW 300' Up/Down Stairs Yes: independent up/ down 5 stairs with L side rail Neurological- Improve/Maintain Start: 08/16/17 00:18 Freq: DAILY Status: Active Target: Protocol: Activity Type Activity Date Activity User E-Sign Co-Sign Detail Recorded Client Recorded Date Recorded By Document 08/22/17 11:18 [id number] 08/22/17 11:18 [id number] 08/22/17 11:18 PMRU Outcome: Neurological Weakness/Aphasia Weakness Outcome/Goals Maintain/ Achieve Baseline Neurological Status Maintain/ Improve Strength/ROM Progression Toward Outcome/Goals Progressing Safety- Improve/Maintain Start: 08/16/17 00:18 Freq: DAILY Status: Active Target: Protocol: Activity Type Activity Date Activity User E-Sign Co-Sign Detail Recorded Client Recorded Date Recorded By Document 08/22/17 11:18 [id number] 08/22/17 11:18 [id number] 08/22/17 11:18 PMRU Outcome: Safety Outcome/Goals Remain Free of Injury or Harm Cooperates with Safety Measures for Least Restrictive Environment Prevent Falls/ Injury Progression Toward Outcome/Goals Progressing Outcome/Goals Met Comment rings appropriately Medicine Note: Length of Stay: 2-3 days Anticipated Discharge Destination: Home Tentative Discharge Date: TBD Discharged to: [facility]
--- NOTE | 2017-08-22 17:21 | PN ---
Progress Note - Progress Note Date of Service: 08/22/17 Note: Guillermo visited. She was discussed in interdisciplinary team rounds. There are gaps in her memory and problem solving abilities noted by all therapists. They are concerned about her returning home alone. Will have a discharge planning meeting with the patient and her niece tomorrow. Concerns about medication administration, ability to call for help, even to remember to press medalert button Current Medications Acetaminophen (Tylenol Tab*) 650 mg PO Q6H PRN PRN Reason: FEVER/PAIN Carbidopa/Levodopa (Sinemet 25/100 Tab(*)) 1 tab PO TID [facility] Last Admin: 08/22/17 14:48 Dose: 1 tab Citalopram Hydrobromide (Celexa Tab*) 40 mg PO DAILY [facility] Last Admin: 08/22/17 08:30 Dose: 40 mg Darifenacin (Enablex (Nf)) 15 mg PO DAILY [facility] Last Admin: 08/22/17 08:30 Dose: 15 mg Dextrose (D50w Syringe 50 Ml*) 12.5 gm IV PUSH .FOR FS < 60 - SS PRN PRN Reason: FS < 60 Diltiazem HCl (Cardizem Cd Cap*) 360 mg PO DAILY [facility] Last Admin: 08/22/17 08:30 Dose: 360 mg Docusate Sodium (Colace Cap*) 100 mg PO BID [facility] Last Admin: 08/22/17 08:35 Dose: Not Given Glipizide (Glucotrol Tab*) 5 mg PO 0800,1700 [facility] Last Admin: 08/22/17 17:02 Dose: 5 mg Heparin Sodium (Porcine) (Heparin Vial(*)) 5,000 units SUBCUT Q8HR [facility] Last Admin: 08/22/17 14:48 Dose: 5,000 units Insulin Glargine (Lantus(*)) 14 units SUBCUT Q24H [facility] Last Admin: 08/21/17 21:05 Dose: 14 units Insulin Human Lispro (Humalog*) 0 - 10 units SUBCUT ACHS [facility] PRN Reason: Protocol Last Admin: 08/22/17 16:47 Dose: Not Given Levothyroxine Sodium (Synthroid Tab*) 100 mcg PO DAILY@0600 [facility] Last Admin: 08/22/17 05:28 Dose: 100 mcg Magnesium Hydroxide (Milk Of Magnesia Liq*) 30 ml PO Q6H PRN PRN Reason: CONSTIPATION Metformin HCl (Glucophage*) 1,000 mg PO 0800,1700 [facility] Last Admin: 08/22/17 17:02 Dose: 1,000 mg Ramipril (Altace Cap*) 5 mg PO DAILY [facility] Last Admin: 08/22/17 08:30 Dose: 5 mg Senna (Senokot Tab*) 2 tab PO BEDTIME PRN PRN Reason: CONSTIPATION Glucose Results Blood Glucose Monitoring POC Start: 08/15/17 16: 34 Freq: ACHS Status: Active Protocol: Document 08/21/17 16:28 [id number] (Rec: 08/21/17 16:28 [id number] PM-M02) Blood Glucose Monitoring POC Glucose Obtained Yes Glucose Result Being Addressed/Treated ( 133 mg/dL) Blood Glucose Method POC Glucose (bedside) Document 08/21/17 20:56 [id number] (Rec: 08/21/17 20:56 [id number] PM-C06) Blood Glucose Monitoring POC Glucose Obtained Yes Glucose Result Being Addressed/Treated ( 158 mg/dL) Blood Glucose Method POC Glucose (bedside) Document 08/22/17 08:00 [id number] (Rec: 08/22/17 08:22 [id number] PM-M02) Blood Glucose Monitoring POC Glucose Obtained Yes Glucose Result Being Addressed/Treated ( 148 mg/dL) Blood Glucose Method POC Glucose (bedside) Document 08/22/17 11:30 [id number] (Rec: 08/22/17 13:21 [id number] PM-C07) Blood Glucose Monitoring POC Glucose Obtained Yes Glucose Result Being Addressed/Treated ( 113 mg/dL) Blood Glucose Method POC Glucose (bedside) Document 08/22/17 16:30 [id number] (Rec: 08/22/17 16:48 [id number] [facility]-M02) Blood Glucose Monitoring POC Glucose Obtained Yes Glucose Result Being Addressed/Treated ( 121 mg/dL) Blood Glucose Method POC Glucose (bedside) Vital Signs Temp Pulse Resp BP Pulse Ox 98.2 F 75 20 142/56 96 08/22/17 16:19 08/22/17 16:19 08/22/17 16:19 08/22/17 16:19 08/22/17 16:19 EXAM: LUNGS: Clear bilaterally HEART: reg rhythm ABDOMEN: Soft NEUROLOGIC: alert. 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 Gait better. PT/OT/ART SPECIALIST. Follow Cognition 2. Diabetes: Glipizide/Metformin/Lantus/SSI 3. Hypothyroidism: Synthroid 4. DVT Prophylaxis: S/Q Heparin 5. HTN: Altace/Diltiazem 6. Advanced directives: Full Code 7. Incontinence: better on Enablex 8. Disposition: Discharge planning meeting with patient tomorrow
[2017-08-22] MEDS: Insulin GLARGINE(*) 1 UNITS UNIT SUBCUT SCH (21:30)
[2017-08-23] MEDS: Levothyroxine TAB* 100 MCG TAB PO SCH (06:03)
[2017-08-23] MEDS: Heparin VIAL(*) 5000 UNITS/ML VIAL (FIVE THOUSAND) SUBCUT SCH ×3 (06:04→21:19)
[2017-08-23 06:15] LABS: ABS Basophils 0.1 10^3/ul (0-0.2); ABS Eosinophils 0.2 10^3/ul (0-0.6); ABS Lymphocytes 1.8 10^3/ul (1.0-4.8); ABS Monocytes 0.5 10^3/ul (0-0.8); ABS Neutrophils 4.4 10^3/ul (1.5-7.7); ABS Nucleated RBC 0 10^3/ul; Eosinophil % 2.4 % (0-6); Hematocrit 34 % (35-47); Hemoglobin 11.5 g/dl (12.0-16.0); Mean Corpuscular HGB Conc 34 g/dl (31-36); Mean Corpuscular Hemoglobin 29 pg (27-31); Mean Corpuscular Volume 85 fL (80-97); Mean Platelet Volume 9 um3 (7.4-10.4); Nucleated Red Blood Cells % 0; Platelet Count 210 10^3/ul (150-450); Red Blood Count 3.97 10^6/ul (4.0-5.4); Red Cell Distribution Width 16 % (10.5-15); White Blood Count 6.9 10^3/ul (3.5-10.8)
[2017-08-23 06:43] LABS: EGFR Non-African American 68.2 (>60)
[2017-08-23] MEDS: Docusate CAP* 100 MG PO SCH ×2 (08:10→19:58)
[2017-08-23] MEDS: DARIFENACIN 15 MG PO SCH (08:10)
[2017-08-23] MEDS: glipiZIDE TAB* 5 MG PO SCH ×2 (08:10→17:10)
[2017-08-23] MEDS: metFORMIN* 1,000 MG TAB PO SCH ×2 (08:11→17:10)
[2017-08-23] MEDS: Carbidopa/Levodop 25/100 MG TAB(*) PO SCH ×3 (08:11→21:19)
[2017-08-23] MEDS: Ramipril CAP* 5 MG PO SCH (08:11)
[2017-08-23] MEDS: Citalopram TAB* 40 MG PO SCH (08:11)
[2017-08-23] MEDS: Diltiazem CD CAP* 180 MG PO SCH (08:11)
[2017-08-23] MEDS: Insulin LISPRO* 1 UNITS UNIT SUBCUT SCH ×4 (08:12→21:20)
--- NOTE | 2017-08-23 19:31 | PN ---
Progress Note - Progress Note Date of Service: 08/23/17 Note: Guillermo was visited. A discharge planning meeting was held with Guillermo, her cousin, myself, social work, PT, OT and Speech Therapy. We discussed the gaps in Guillermo's memory and her behavior which at times was unsafe. Each of the therapists expressed concerns about Guillermo's ability to live on her own. The overall progress was good, but due to cognitive problems and gaps in thinking, it was feared she could be at risk if she went home alone. guillermo adamantly refused to consider a short stay for subacute rehab in a SNF. She also refused Meals on Wheels. We will have psychiatry see her to determine if she is competent, and if they deem her so, will discharge her home. Will try to arrange equipment to make her home safer (a PERS unit, a hospital bed). She does have relatives who have a hoyos to her house. Current Medications Acetaminophen (Tylenol Tab*) 650 mg PO Q6H PRN PRN Reason: FEVER/PAIN Carbidopa/Levodopa (Sinemet 25/100 Tab(*)) 1 tab PO TID [facility] Last Admin: 08/23/17 14:29 Dose: 1 tab Citalopram Hydrobromide (Celexa Tab*) 40 mg PO DAILY [facility] Last Admin: 08/23/17 08:11 Dose: 40 mg Darifenacin (Enablex (Nf)) 15 mg PO DAILY [facility] Last Admin: 08/23/17 08:10 Dose: 15 mg Dextrose (D50w Syringe 50 Ml*) 12.5 gm IV PUSH .FOR FS < 60 - SS PRN PRN Reason: FS < 60 Diltiazem HCl (Cardizem Cd Cap*) 360 mg PO DAILY [facility] Last Admin: 08/23/17 08:11 Dose: 360 mg Docusate Sodium (Colace Cap*) 100 mg PO BID [facility] Last Admin: 08/23/17 08:10 Dose: 100 mg Glipizide (Glucotrol Tab*) 5 mg PO 0800,1700 [facility] Last Admin: 08/23/17 17:10 Dose: 5 mg Heparin Sodium (Porcine) (Heparin Vial(*)) 5,000 units SUBCUT Q8HR [facility] Last Admin: 08/23/17 14:30 Dose: 5,000 units Insulin Glargine (Lantus(*)) 14 units SUBCUT Q24H [facility] Last Admin: 08/22/17 21:30 Dose: 14 units Insulin Human Lispro (Humalog*) 0 - 10 units SUBCUT ACHS [facility] PRN Reason: Protocol Last Admin: 08/23/17 16:05 Dose: Not Given Levothyroxine Sodium (Synthroid Tab*) 100 mcg PO DAILY@0600 [facility] Last Admin: 08/23/17 06:03 Dose: 100 mcg Magnesium Hydroxide (Milk Of Magnesia Liq*) 30 ml PO Q6H PRN PRN Reason: CONSTIPATION Metformin HCl (Glucophage*) 1,000 mg PO 0800,1700 [facility] Last Admin: 08/23/17 17:10 Dose: 1,000 mg Ramipril (Altace Cap*) 5 mg PO DAILY [facility] Last Admin: 08/23/17 08:11 Dose: 5 mg Senna (Senokot Tab*) 2 tab PO BEDTIME PRN PRN Reason: CONSTIPATION Glucose Results Blood Glucose Monitoring POC Start: 08/15/17 16: 34 Freq: ACHS Status: Active Protocol: Document 08/22/17 16:30 [id number] (Rec: 08/22/17 16:48 [id number] [id number]) Blood Glucose Monitoring POC Glucose Obtained Yes Glucose Result Being Addressed/Treated ( 121 mg/dL) Blood Glucose Method POC Glucose (bedside) Document 08/22/17 20:28 [id number] (Rec: 08/22/17 20:28 [id number]) Blood Glucose Monitoring POC Glucose Obtained Yes Glucose Result Being Addressed/Treated ( 134 mg/dL) Blood Glucose Method POC Glucose (bedside) Document 08/23/17 07:56 [id number] (Rec: 08/23/17 07:56 [id number] [id number]) Blood Glucose Monitoring POC Glucose Obtained Yes Glucose Result Being Addressed/Treated ( 143 mg/dL) Blood Glucose Method POC Glucose (bedside) Document 08/23/17 12:00 [id number] (Rec: 08/23/17 12:39 [id number]) Blood Glucose Monitoring POC Glucose Obtained Yes Glucose Result Being Addressed/Treated ( 81 mg/dL) Blood Glucose Method POC Glucose (bedside) Document 08/23/17 16:02 [id number] (Rec: 08/23/17 16:04 [id number]) Blood Glucose Monitoring POC Glucose Obtained Yes Glucose Result Being Addressed/Treated ( 120 mg/dL) Blood Glucose Method POC Glucose (bedside) Laboratory Results - last 24 hr 08/22/17 08/23/17 08/23/17 20:23 05:50 05:50 WBC 6.9 RBC 3.97 L Hgb 11.5 L Hct 34 L MCV 85 MCH 29 MCHC 34 RDW 16 H Plt Count 210 MPV 9 Neut % (Auto) 64.0 Lymph % (Auto) 26.0 [place] % (Auto) 6.8 Eos % (Auto) 2.4 Baso % (Auto) 0.8 Absolute Neuts (auto) 4.4 Absolute Lymphs (auto) 1.8 Absolute Monos (auto) 0.5 Absolute Eos (auto) 0.2 Absolute Basos (auto) 0.1 Absolute Nucleated RBC 0 Nucleated RBC % 0 Sodium 135 Potassium 4.3 Chloride 101 Carbon Dioxide 28 Anion Gap 6 BUN 16 Creatinine 0.83 Est GFR ( Amer) 87.7 Est GFR (Non-Af Amer) 68.2 BUN/Creatinine Ratio 19.3 Glucose 142 H POC Glucose (mg/dL) 134 H Calcium 9.6 Total Bilirubin 0.40 AST 37 ALT 43 Alkaline Phosphatase 128 H Total Protein 6.7 Albumin 3.3 Globulin 3.4 Albumin/Globulin Ratio 1.0 08/23/17 08/23/17 08/23/17 07:52 12:05 15:52 WBC RBC Hgb Hct MCV MCH MCHC RDW Plt Count MPV Neut % (Auto) Lymph % (Auto) Berg[place] % (Auto) Eos % (Auto) Baso % (Auto) Absolute Neuts (auto) Absolute Lymphs (auto) Absolute Monos (auto) Absolute Eos (auto) Absolute Basos (auto) Absolute Nucleated RBC Nucleated RBC % Sodium Potassium Chloride Carbon Dioxide Anion Gap BUN Creatinine Est GFR ( Amer) Est GFR (Non-Af Amer) BUN/Creatinine Ratio Glucose POC Glucose (mg/dL) 143 H 81 120 H Calcium Total Bilirubin AST ALT Alkaline Phosphatase Total Protein Albumin Globulin Albumin/Globulin Ratio Vital Signs Temp Pulse Resp BP Pulse Ox 98.6 F 70 18 139/48 97 08/23/17 15:09 08/23/17 15:09 08/23/17 15:16 08/23/17 15:09 08/23/17 15:16 EXAM: LUNGS: Clear bilaterally HEART: reg rhythm ABDOMEN: Soft NEUROLOGIC: alert. 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 Gait better. PT/OT/DIAGNOSTIC TECH. Follow Cognition 2. Diabetes: Glipizide/Metformin/Lantus/SSI 3. Hypothyroidism: Synthroid 4. DVT Prophylaxis: S/Q Heparin 5. HTN: Altace/Diltiazem 6. Advanced directives: Full Code 7. Incontinence: better on Enablex 8. Disposition: Psychiatry will see her to determine competence and then she may go home if so
[2017-08-23] MEDS: Insulin GLARGINE(*) 1 UNITS UNIT SUBCUT SCH (21:20)
[2017-08-24] MEDS: Heparin VIAL(*) 5000 UNITS/ML VIAL (FIVE THOUSAND) SUBCUT SCH ×3 (04:48→21:27)
[2017-08-24] MEDS: Levothyroxine TAB* 100 MCG TAB PO SCH (04:48)
[2017-08-24] MEDS: Ramipril CAP* 5 MG PO SCH (08:02)
[2017-08-24] MEDS: Citalopram TAB* 40 MG PO SCH (08:02)
[2017-08-24] MEDS: metFORMIN* 1,000 MG TAB PO SCH ×2 (08:02→17:15)
[2017-08-24] MEDS: Carbidopa/Levodop 25/100 MG TAB(*) PO SCH ×3 (08:02→21:27)
[2017-08-24] MEDS: glipiZIDE TAB* 5 MG PO SCH ×2 (08:02→17:15)
[2017-08-24] MEDS: Diltiazem CD CAP* 180 MG PO SCH (08:02)
[2017-08-24] MEDS: DARIFENACIN 15 MG PO SCH (08:03)
[2017-08-24] MEDS: Docusate CAP* 100 MG PO SCH ×2 (08:04→21:30)
[2017-08-24] MEDS: Insulin LISPRO* 1 UNITS UNIT SUBCUT SCH ×4 (09:07→21:31)
--- NOTE | 2017-08-24 14:24 | CONSULT ---
Consult Consult: Consult for Medical Decision Making Capacity S: Psychiatry is asked to evaluate capacity in this 71 y.o. 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 After speaking with Dr. Harrison, I understand that since admission on the [facility], Guillermo has demonstrated poor memory and judgment and they are questioning her ability to use information to make informed medical decisions. Specifically, the indicated treatment would be roughly 2 weeks of subacute rehab. The risks of refusing said treatment would be further falls at home leading to severe injury, paralysis or . On exam the patient is calm and cooperative. When asked what treatment is being recommended for after discharge, she replies "They want me to go to further rehab, but nothing specific." She then expresses her preference to go home. When asked about her perception of the risks of going home, she responds "I don't concentrate on those things but I guess I could fall again." She then specifies some risk mitigation strategies she has thought of to reduce the likelihood of falling. "My friends are going to come check on me regularly. I have neighbors and my brother is coming from [place] in a week." She also states that she would like to have a home alert bracelet and visiting nursing services. O: the patient is overweight, aging white female; calm and cooperative; euthymic ; denies SI or HI; no evidence of psychosis; insight and judgment seem fair; cognitively she is awake and alert; scores 27/30 on a MMSE, losing one point for day of week and two points for delayed recall A/P: Capacity: the patient is able to clearly state what the recommended treatment (subacute rehab) is and what the risks (falls, paralysis, ) would be for refusing the treatment. She demonstrates the ability to receive information and utilize it to make decisions. Psychiatry deems that she has capacity to refuse subacute rehab. Capacity is subject to change with patient circumstances so feel free to re-consult psychiatry in the event of a change in her presentation.
--- NOTE | 2017-08-24 14:52 | PN ---
Progress Note - Progress Note Date of Service: 08/24/17 Note: Guillermo visited. She was examined by Dr. Borges from psychiatry who believes she has capacity to make the decision to return home and refuse subacute rehab. She has consented to getting a hospital bed and a PERS unit. Will make arrangements for d/c tomorrow. Current Medications Acetaminophen (Tylenol Tab*) 650 mg PO Q6H PRN PRN Reason: FEVER/PAIN Carbidopa/Levodopa (Sinemet 25/100 Tab(*)) 1 tab PO TID [facility] Last Admin: 08/24/17 13:59 Dose: 1 tab Citalopram Hydrobromide (Celexa Tab*) 40 mg PO DAILY [facility] Last Admin: 08/24/17 08:02 Dose: 40 mg Darifenacin (Enablex (Nf)) 15 mg PO DAILY [facility] Last Admin: 08/24/17 08:03 Dose: 15 mg Dextrose (D50w Syringe 50 Ml*) 12.5 gm IV PUSH .FOR FS < 60 - SS PRN PRN Reason: FS < 60 Diltiazem HCl (Cardizem Cd Cap*) 360 mg PO DAILY [facility] Last Admin: 08/24/17 08:02 Dose: 360 mg Docusate Sodium (Colace Cap*) 100 mg PO BID [facility] Last Admin: 08/24/17 08:04 Dose: Not Given Glipizide (Glucotrol Tab*) 5 mg PO 0800,1700 [facility] Last Admin: 08/24/17 08:02 Dose: 5 mg Heparin Sodium (Porcine) (Heparin Vial(*)) 5,000 units SUBCUT Q8HR [facility] Last Admin: 08/24/17 13:59 Dose: 5,000 units Insulin Glargine (Lantus(*)) 14 units SUBCUT Q24H [facility] Last Admin: 08/23/17 21:20 Dose: 14 units Insulin Human Lispro (Humalog*) 0 - 10 units SUBCUT ACHS [facility] PRN Reason: Protocol Last Admin: 08/24/17 12:05 Dose: Not Given Levothyroxine Sodium (Synthroid Tab*) 100 mcg PO DAILY@0600 [facility] Last Admin: 08/24/17 04:48 Dose: 100 mcg Magnesium Hydroxide (Milk Of Magnesia Liq*) 30 ml PO Q6H PRN PRN Reason: CONSTIPATION Metformin HCl (Glucophage*) 1,000 mg PO 0800,1700 [facility] Last Admin: 08/24/17 08:02 Dose: 1,000 mg Ramipril (Altace Cap*) 5 mg PO DAILY [facility] Last Admin: 08/24/17 08:02 Dose: 5 mg Senna (Senokot Tab*) 2 tab PO BEDTIME PRN PRN Reason: CONSTIPATION Glucose Results Blood Glucose Monitoring POC Start: 08/15/17 16: 34 Freq: 0800,1700 Status: Active Protocol: Document 08/23/17 07:56 [id number] (Rec: 08/23/17 07:56 [id number]) Blood Glucose Monitoring POC Glucose Obtained Yes Glucose Result Being Addressed/Treated ( 143 mg/dL) Blood Glucose Method POC Glucose (bedside) Document 08/23/17 12:00 [id number] (Rec: 08/23/17 12:39 [id number]) Blood Glucose Monitoring POC Glucose Obtained Yes Glucose Result Being Addressed/Treated ( 81 mg/dL) Blood Glucose Method POC Glucose (bedside) Document 08/23/17 16:02 [id number] (Rec: 08/23/17 16:04 [id number]) Blood Glucose Monitoring POC Glucose Obtained Yes Glucose Result Being Addressed/Treated ( 120 mg/dL) Blood Glucose Method POC Glucose (bedside) Document 08/23/17 20:09 [id number] (Rec: 08/23/17 20:09 [id number]) Blood Glucose Monitoring POC Glucose Obtained Yes Glucose Result Being Addressed/Treated ( 154 mg/dL) Blood Glucose Method POC Glucose (bedside) Document 08/24/17 07:30 [id number] (Rec: 08/24/17 10:15 [id number]) Blood Glucose Monitoring POC Glucose Obtained Yes Glucose Result Being Addressed/Treated ( 144 mg/dL) Blood Glucose Method POC Glucose (bedside) Additional Actions Taken Nurse Notified Vital Signs Temp Pulse Resp BP Pulse Ox 98.7 F 66 18 154/62 95 08/24/17 04:59 08/24/17 04:59 08/24/17 04:59 08/24/17 04:59 08/24/17 04:59 EXAM: LUNGS: Clear bilaterally HEART: reg rhythm ABDOMEN: Soft NEUROLOGIC: alert. 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 Gait better. 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 Follow Cognition 2. Diabetes: Glipizide/Metformin/Lantus. Will decrease BS to BID 3. Hypothyroidism: Synthroid 4. DVT Prophylaxis: S/Q Heparin 5. HTN: Altace/Diltiazem 6. Advanced directives: Full Code 7. Incontinence: better on Enablex 8. Disposition: Psychiatry has determined competence; she may go home tomorrow
[2017-08-24] MEDS: Insulin GLARGINE(*) 1 UNITS UNIT SUBCUT SCH (21:29)
[2017-08-25] MEDS: Heparin VIAL(*) 5000 UNITS/ML VIAL (FIVE THOUSAND) SUBCUT SCH ×2 (06:08→13:50)
[2017-08-25] MEDS: Levothyroxine TAB* 100 MCG TAB PO SCH (06:09)
[2017-08-25 06:14] VITALS: BP 152/78
[2017-08-25] MEDS: Insulin LISPRO* 1 UNITS UNIT SUBCUT SCH (08:10)
[2017-08-25] MEDS: metFORMIN* 1,000 MG TAB PO SCH (08:31)
[2017-08-25] MEDS: Carbidopa/Levodop 25/100 MG TAB(*) PO SCH ×2 (08:31→13:52)
[2017-08-25] MEDS: Citalopram TAB* 40 MG PO SCH (08:31)
[2017-08-25] MEDS: Docusate CAP* 100 MG PO SCH ×2 (08:31→08:33)
[2017-08-25] MEDS: DARIFENACIN 15 MG PO SCH (08:31)
[2017-08-25] MEDS: Diltiazem CD CAP* 180 MG PO SCH (08:31)
[2017-08-25] MEDS: glipiZIDE TAB* 5 MG PO SCH (08:31)
[2017-08-25] MEDS: Ramipril CAP* 5 MG PO SCH (08:31)
--- NOTE | 2017-08-25 10:40 | PN ---
Progress Note - Progress Note Date of Service: 08/25/17 Note: Nursing notes, therapy notes, psychiatry consultation and progress notes reviewed. No new concerns overnight. She is eager to head home this afternoon. No chest pain, shortness of breath or abdominal pain. She is incontinent, but changes her own depends. She did FS at home previously for glucose monitoring. She did not start using Trulicity yet as an outpatient but states she completed training with a nurse in Dr. Saavedra's office. Acetaminophen (Tylenol Tab*) 650 mg PO Q6H PRN PRN Reason: FEVER/PAIN Carbidopa/Levodopa (Sinemet 25/100 Tab(*)) 1 tab PO TID [facility] Last Admin: 08/25/17 08:31 Dose: 1 tab Citalopram Hydrobromide (Celexa Tab*) 40 mg PO DAILY [facility] Last Admin: 08/25/17 08:31 Dose: 40 mg Darifenacin (Enablex (Nf)) 15 mg PO DAILY [facility] Last Admin: 08/25/17 08:31 Dose: 15 mg Dextrose (D50w Syringe 50 Ml*) 12.5 gm IV PUSH .FOR FS < 60 - SS PRN PRN Reason: FS < 60 Diltiazem HCl (Cardizem Cd Cap*) 360 mg PO DAILY [facility] Last Admin: 08/25/17 08:31 Dose: 360 mg Docusate Sodium (Colace Cap*) 100 mg PO BID [facility] Last Admin: 08/25/17 08:33 Dose: Not Given Glipizide (Glucotrol Tab*) 5 mg PO 0800,1700 [facility] Last Admin: 08/25/17 08:31 Dose: 5 mg Heparin Sodium (Porcine) (Heparin Vial(*)) 5,000 units SUBCUT Q8HR [facility] Last Admin: 08/25/17 06:08 Dose: 5,000 units Insulin Glargine (Lantus(*)) 14 units SUBCUT Q24H [facility] Last Admin: 08/24/17 21:29 Dose: 14 units Insulin Human Lispro (Humalog*) 0 - 10 units SUBCUT ACHS [facility] PRN Reason: Protocol Last Admin: 08/25/17 08:10 Dose: 1 unit Levothyroxine Sodium (Synthroid Tab*) 100 mcg PO DAILY@0600 [facility] Last Admin: 08/25/17 06:09 Dose: 100 mcg Magnesium Hydroxide (Milk Of Magnkim Liq*) 30 ml PO Q6H PRN PRN Reason: CONSTIPATION Metformin HCl (Glucophage*) 1,000 mg PO 0800,1700 [facility] Last Admin: 08/25/17 08:31 Dose: 1,000 mg Ramipril (Altace Cap*) 5 mg PO DAILY [facility] Last Admin: 08/25/17 08:31 Dose: 5 mg Senna (Senokot Tab*) 2 tab PO BEDTIME PRN PRN Reason: CONSTIPATION Vital Signs 08/24/17 08/24/17 08/24/17 15:29 15:35 16:16 Temperature 98.4 F Pulse Rate 81 Respiratory 18 18 Rate Blood Pressure 132/66 (mmHg) O2 Sat by Pulse 97 97 Oximetry 08/25/17 08/25/17 08/25/17 06:10 06:14 08:00 Temperature 98.8 F Pulse Rate 66 Respiratory 18 18 Rate Blood Pressure 152/78 (mmHg) O2 Sat by Pulse 96 96 Oximetry EXAM: GEN: no acute distress. alert and appropriate. LUNGS: Clear bilaterally HEART: regular rate and rhythm ABDOMEN: +bowel sounds, Soft, non-tender, non-distended NEUROLOGIC: CN II-XII intact. Motor 5/5 bue/ble. Sensation intact. EXT: no edema. Laboratory Results - last 24 hr 08/24/17 16:39 POC Glucose (mg/dL) 161 H ASSESSMENT/PLAN: 71yo woman with new diagnosis of Parkisonism on Sinemet and question NPH. 1. 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 f/u with neurology in 3 weeks. 2. Diabetes: Glipizide/Metformin and restart Trulicity today. Trulicity is here and nursing will review self injection with patient prior to discharge. I d/w her having a calendar to remind her to inject every Monday. FS BID at home and keep journal. 3. Hypothyroidism: Synthroid 4. DVT Prophylaxis: S/Q Heparin 5. HTN: Altace/Diltiazem 6. Advanced directives: Full Code 7. Incontinence: continue Enablex 8. Disposition: Psychiatry has determined competence; she will go home today. Her cousin is coming in for d/c instructions and to bring her home.
[2017-08-25] MEDS ORDERED: PTO:Dulaglutide (NF) 0.75 MG/0.5 ML SYRINGE SUBCUT SCH (14:00)
--- NOTE | 2017-08-26 00:02 | DS ---
CC: Dr. Saavedra; Dr. Beatty REHABILITATION DISCHARGE SUMMARY: DATE OF ADMISSION: 08/15/17 DATE OF DISCHARGE: 08/25/17 PRIMARY CARE PROVIDER: Dr. Saavedra. NEUROLOGIST: Dr. Beatty. REASON FOR ADMISSION: Parkinsonism. HISTORY OF PRESENT ILLNESS: For full details of her acute hospitalization leading up to admission, please see the note dictated by Dr. Harrison on as well as her discharge summary from Dr. Howard on the same date. REHABILITATION HOSPITAL COURSE: During her time on the [facility], she remained on Sinemet 3 times per day for newly diagnosed Parkinsonism. It was noted that she was having significant cognitive impairments especially with her memory and she was known to have hydrocephalus evident on prior imaging. This was discussed with Neurology, but their plan was to wait at least 4 weeks with her on Sinemet before deciding to do an LP to see if that would change her clinical status. She participated well with physical therapy while here. At the time of discharge, she is independent with bed mobility. It is recommended that she has supervision for transfers using a rolling walker and supervision with ambulating using a rolling walker. She has demonstrated an ability to do this up to 300 feet. She is to have supervision doing stairs and has been able to do 10 stairs here with 2 rails. She needs to be reminded to use her walker when moving. She also participated well with occupational therapy. At the time of discharge, she is independent with eating. For bathing and tub transfer , supervision is recommended for safety and she should complete bathing in a seated position. For dressing, she is independent in the upper body and for the lower body she is independent using a pest control service representative and a sock aid. She is independent with toileting and toilet transfers using a walker. She is often incontinent and can change her own depends. For home management and cooking, it is recommended that she stick to cold meal preparation and microwave use only. It is recommended that she has assistance for medication management and organization as well as money management. She was seen and also treated by speech therapy. Her receptive and expressive language is functional. All motor and swallowing is functional. She has no trouble with her speech and voice. In terms of cognition for her memory, she needs to take additional time. She needs to use reminders and set things out in advance and write a list if needed. She should plan ahead out loud or in writing and think of safety first. She is recommended to walk using her walker, minimize trips outside the home and plan ahead. It is recommended to her that she not drive until she has been cleared by her healthcare provider. She voiced understanding of this recommendation. Initially, it was recommended that she consider a stay at a subacute rehabilitation facility after her acute rehabilitation stay since it was noted that her memory issues some times impacted her functional performance. She declined that offer. Due to concerns for safety, she was seen by Psychiatry to determine her competency. The psychiatrist determined that she was indeed competent to make this decision and that she understood the risks of going home alone included additional falls, injuries and even . She had her cousin available for the family meeting on 08/23/17 where this was initially discussed. She plans to have her brother come out to visit in a week or so to stay with her. Of note, when she came to the hospital originally, her diabetes was poorly controlled. She was put back on her oral medications and treated primarily with Lantus insulin. As an outpatient, her primary care provider had given her samples of Trulicity, but she had not initiated that yet. That will be initiated on the day of discharge and we are reviewing with her self injection. Injections will continue to be done every Monday and she will continue to check her fingersticks twice per day keeping a journal to share with her primary care provider. For incontinence, she will continue with Enablex which she was using prior to her hospitalization. A referral has been sent to the office of the aging for her to get a PERS unit and she will have a hospital bed. When she came to the rehabilitation unit, she was on Augmentin for cellulitis of the right knee. She completed the 7-day course. Her right knee continues to be dressed with Mepilex typically every 6 to 7 days. This will be followed up by visiting nurse services. She also has an abrasion of the left knee that is covered with the dressing. A few days ago prior to her discharge developed a reddened area on her left upper arm that appears to be a bug bite. She was advised that she could use antibiotic ointment on this and if it worsens to contact her primary care provider. DISCHARGE MEDICATIONS: 1. Carbidopa/levodopa 25/100 one tablet t.i.d. 2. Celexa 40 mg daily. 3. Enablex 15 mg daily. 4. Diltiazem CD 360 mg daily. 5. Glipizide 5 mg b.i.d. 6. Levothyroxine 100 mcg q.a.m. 7. Metformin 1000 mg b.i.d. 8. Ramipril 5 mg daily. 9. Trulicity 0.5 mg subcutaneously every Monday. FOLLOWUP: 1. A referral has been sent to visiting nurse services for nursing, home health aide and ongoing therapy for PT and OT. 2. She is to follow up with Dr. Beatty on 09/18/17 at 3:15 p.m. 3. She should follow up with Dr. Saavedra within a month. 4. A referral has been sent to the office of the aging as well and given concerns about her memory at home, a referral is also being sent to Adult Protective Services and she is aware of this. DISCHARGE CONDITION: Fair. DISCHARGE DISPOSITION: Home with some family and friend support. DISCHARGE DIAGNOSES: 1. Parkinsonism. 2. Hydrocephalus. 3. Diabetes mellitus. 4. Hypothyroidism. 5. Hypertension. 6. Overactive bladder. 7. Cellulitis. [id number]/[facility] #: [id number] JOSE
== END 2017-08-25 13:45 | disposition home health service (06) | DRG 57 ==
LOC: PMRU 15:45
PROVIDERS: ADMIT Physical Medicine & Rehabilitation; ATTEND Physical Medicine & Rehabilitation
PROC: F07Z5ZZ Bed Mobility Treatment (ICD-10-PCS; principal; 2017-08-15)
PROC: F07Z9ZZ Gait Training/Functional Ambulation Treatment (ICD-10-PCS; 2017-08-15)
PROC: F07Z8ZZ Transfer Training Treatment (ICD-10-PCS; 2017-08-15)
PROC: F08Z0ZZ Bathing/Showering Techniques Treatment (ICD-10-PCS; 2017-08-15)
PROC: F08Z1ZZ Dressing Techniques Treatment (ICD-10-PCS; 2017-08-15)
PROC: F08Z3ZZ Feeding/Eating Treatment (ICD-10-PCS; 2017-08-15)
PROC: F06Z6ZZ Communicative/Cognitive Integration Skills Treatment (ICD-10-PCS; 2017-08-15)
DX: G20 Parkinson's disease (principal); G91.2 (Idiopathic) normal pressure hydrocephalus; L03.115 Cellulitis of right lower limb; E11.9 Type 2 diabetes mellitus without complications; E03.9 Hypothyroidism, unspecified; I10 Essential (primary) hypertension; N32.81 Overactive bladder; R32 Unspecified urinary incontinence; G31.84 Mild cognitive impairment of uncertain or unknown etiology; Z88.2 Allergy status to sulfonamides; Z79.01 Long term (current) use of anticoagulants; Z79.84 Long term (current) use of oral hypoglycemic drugs; Z79.4 Long term (current) use of insulin; Z79.899 Other long term (current) drug therapy
CPT/HCPCS: 36415; 80053; 85025; A9270-GY; G0515-GO; J1644

== ENCOUNTER 2017-08-30 14:01 | Inpatient (IN) | payer MEDICARE, OTHER ==
[2017-08-30 15:26] LABS: ABS Basophils 0.1 10^3/ul (0-0.2); ABS Eosinophils 0 10^3/ul (0-0.6); ABS Lymphocytes 1.2 10^3/ul (1.0-4.8); ABS Monocytes 0.9 10^3/ul (0-0.8); ABS Neutrophils 10.5 10^3/ul (1.5-7.7); ABS Nucleated RBC 0 10^3/ul; Eosinophil % 0.2 % (0-6); Hematocrit 39 % (35-47); Hemoglobin 12.8 g/dl (12.0-16.0); Lymphocyte % 9.3 % (25-47); Mean Corpuscular HGB Conc 33 g/dl (31-36); Mean Corpuscular Hemoglobin 29 pg (27-31); Mean Corpuscular Volume 85 fL (80-97); Mean Platelet Volume 9 um3 (7.4-10.4); Nucleated Red Blood Cells % 0; Platelet Count 328 10^3/ul (150-450); Red Blood Count 4.51 10^6/ul (4.0-5.4); Red Cell Distribution Width 16 % (10.5-15); White Blood Count 12.7 10^3/ul (3.5-10.8)
[2017-08-30 15:41] LABS: EGFR Non-African American 71.1 (>60)
[2017-08-30] MEDS ORDERED: NS 0.9% 1000 ML* 1,000 ML IV ONE (17:45)
--- NOTE | 2017-08-30 19:57 | RAD ---
INDICATION: Weakness. COMPARISON: There are no prior studies available for comparison. TECHNIQUE: A portable view of the chest was obtained. FINDINGS: Cardiac and mediastinal contours appear to be within normal limits. The lungs are clear. No pleural effusion is seen. IMPRESSION: NO EVIDENCE FOR ACUTE DISEASE.
[2017-08-30 20:30] LABS: Urine Appearance Cloudy; Urine Blood Negative (Negative); Urine Color Yellow; Urine Ketones Negative (Negative); Urine Protein 3+(>=500 mg/dL) (Negative); Urine Specific Gravity 1.023 (1.010-1.030); Urine Urobilinogen Negative (Negative)
[2017-08-30] MEDS ORDERED: Al Hydrox/Mg Hydrox/Simet LIQ* 30 ML UDC PO PRN (21:02)
[2017-08-30] MEDS ORDERED: Docusate CAP* 100 MG PO PRN ×2 (21:02→21:07)
[2017-08-30] MEDS ORDERED: Senna TAB PO PRN (21:02)
[2017-08-30] MEDS ORDERED: Ondansetron INJ* 2 MG/ML VIAL IV PRN (21:02)
[2017-08-30] MEDS ORDERED: Dextrose 50% Syringe 50 ML* 25 GM/50 ML SYRINGE IV PUSH PRN (21:09)
--- NOTE | 2017-08-30 21:34 | RAD ---
INDICATION: Fall, altered mental status. COMPARISON: Comparison is made with a prior CT of the brain and MRI of the brain from August 11, 2017. TECHNIQUE: Contiguous axial sections of the brain were obtained from the skull base to the vertex without contrast. FINDINGS: The ventricles, cisterns and sulci are prominent consistent with diffuse atrophy. The ventricles appear slightly more prominent relative to the cisterns and sulci raising the possibility of normal pressure hydrocephalus. There are small areas of decreased attenuation within the subcortical and periventricular white matter consistent with mild chronic small vessel ischemic changes. No other focal abnormality or mass effect is seen. There is no evidence for hemorrhage. No significant focal osseous abnormality is seen. The visualized portion of the paranasal sinuses and mastoid air cells appear clear. IMPRESSION: 1. NO EVIDENCE FOR ACUTE FINDING. 2. ATROPHY AND CHRONIC SMALL VESSEL ISCHEMIC CHANGES. 3. THE VENTRICLES ARE ENLARGED SLIGHTLY OUT OF PROPORTION TO THE CISTERNS AND SULCI RAISING THE POSSIBILITY OF NORMAL PRESSURE HYDROCEPHALUS.
[2017-08-30] MEDS ORDERED: Diltiazem CD CAP* 180 MG PO SCH (22:00)
--- NOTE | 2017-08-30 23:38 | HP ---
CC: Bhavya Saavedra MD * HISTORY AND PHYSICAL: DATE OF ADMISSION: 08/30/17 TIME OF EVALUATION: 2100. PRIMARY CARE PHYSICIAN: Bhvaya Saavedra MD CHIEF COMPLAINT: Fall. HISTORY OF PRESENT ILLNESS: This is a 71-year-old female with a past medical history of hydrocephalus and presumed Parkinson's, who presents to the emergency room after falling out of her bed 3 days ago and has not been able to get up. The patient was admitted on the to the for a similar episode of falling and not being able to get up. It was thought that she had Parkinson' s and she was started on Sinemet and her symptoms improved. There is also a question of possible normal pressure hydrocephalus, but because her symptoms improved with Sinemet, no other further intervention was worked up for that. She went to [facility] for her deconditioning and her fall. There was concern at [facility] that she was not a safe discharge. She has Psychiatry evaluate her, who felt that she had the capacity to go home even though it was recommended it was not a safe discharge plan. The patient states since her discharge from [facility] which was on the 5 days ago, she has not fallen up until 3 days ago out of the bed and she was not able to get up. She states she has been more tired. She has no chest pain or shortness of breath. She is complaining of back spasms. She states she has lost 40 pounds in the last 3 weeks. According to our records, her weight seems to have gone from 109 kilos to 113 kilos showing a weight gain. She states she has been getting around well with her walker and her family and friends come and visit her often. She states VNS is coming, but she is not sure how often they are coming as well. She denies any urinary symptoms. No nausea, vomiting, or diarrhea. No fevers. No upper respiratory symptoms. Otherwise, remaining review of systems is negative. In the emergency room, the patient had labs. She was given a liter of fluid and referred to the hospitalist service for further evaluation. PAST MEDICAL HISTORY: 1. Question of Parkinson's disease. 2. Uncontrolled diabetes. 3. Sinus tachycardia and uncontrolled hypertension. 4. History of hypertension. 5. Constipation. 6. Hypothyroidism. ALLERGIES: SULFA. FAMILY HISTORY: Reviewed and noncontributory. SOCIAL HISTORY: As mentioned, the patient lives alone. She ambulates with a walker. No history of tobacco, alcohol, or illicit drug use. Her healthcare proxy is her brother, Randall. Code status is a full code. REVIEW OF SYSTEMS: A 14-point review of systems as mentioned in the HPI, otherwise negative. PHYSICAL EXAMINATION GENERAL: In no acute distress, resting comfortably. VITAL SIGNS: Temp 98.3, pulse rate is 118, respiratory rate is 21, oxygen saturation 93% on room air, blood pressure 152/65. HEENT: Head: Normocephalic. Pupils equal and reactive, anicteric. Oropharynx : Mucous membranes are dry. NECK: Supple. No lymphadenopathy. RESPIRATORY: Diminished breath sounds. No wheezes, rhonchi, or rales. CARDIAC: Tachycardic. Soft systolic murmur heard throughout. ABDOMEN: Normal bowel sounds. Morbidly obese, soft, nondistended, nontender. EXTREMITIES: Trace pretibial edema. +1 DPs. NEUROLOGIC: Alert and oriented x3 and no gross focal neurologic deficits. She does have flat affect with delayed in processing and speech, just slow to respond. DIAGNOSTIC STUDIES/LAB DATA: White count 12.7, hemoglobin 12.8, hematocrit 39 , platelets 328. INR is 1.07. Sodium 132, potassium 4.5, chloride 97, bicarb 26, BUN 25, creatinine 0.8, glucose 301, and TSH 1.44. Chest x-ray shows no evidence for acute disease. EKG shows sinus tachycardia with rate of 108. ASSESSMENT: This is a 71-year-old female with a past medical history of question of Parkinson's versus normal partial hydrocephalus, who presents to the emergency room after falling 3 days ago, not being able to get up after a recent discharge from [facility] on the . They were concerned about her discharge at that time and states that that was not a safe discharge, but Psych stated she had capacity to go home. Again, there is concern for her safe discharge here this evening. 1. Fall. Assessment: The patient does not seem to be appropriate to be living independently as she is falling and having difficulty managing. There are no focal findings on exam. She does have mild leukocytosis without any other signs of infection. She does seem to have a delay in her speech processing. Plan: We will get a head CT, go to PT consult and social work consult. She did have social work involved last time and adult protective services involved in her care as well. 2. Chronic medical problems: Diabetes. It appears that her diabetes is still poorly controlled. We will place her on Lantus and lispro sliding scale and hold her oral agents. 3. Question of Parkinson's. Continue her Sinemet and as mentioned, we will repeat a head CT and see if normal pressure hydrocephalus is still playing a role in her symptoms of falling. 4. Depression. Continue her Celexa. 5. Concern for hypertension and tachycardia. Continue her diltiazem. 6. Hypothyroidism. Continue her Synthroid. 7. FEN. Place patient on a diabetic diet. 8. DVT prophylaxis. The patient scores high risk. We will place her on heparin subcu t.i.d. 9. Code status. Full code. PATIENT TIME: Greater than 60 minutes was spent doing the history and physical , more than half the time spent in direct patient contact. [id number]/CPS #: [id number] JOSE
[2017-08-31] MEDS ORDERED: Insulin GLARGINE(*) 1 UNITS UNIT ONE (00:29)
[2017-08-31] MEDS ORDERED: Heparin VIAL(*) 5000 UNITS/ML VIAL (FIVE THOUSAND) ONE (00:30)
[2017-08-31] MEDS ORDERED: Carbidopa/Levodop 25/100 MG TAB(*) ONE (00:30)
[2017-08-31] MEDS ORDERED: Diltiazem TAB* 60 MG ONE (00:35)
[2017-08-31] MEDS: Carbidopa/Levodop 25/100 MG TAB(*) PO SCH ×4 (00:44→21:54)
[2017-08-31] MEDS: Heparin VIAL(*) 5000 UNITS/ML VIAL (FIVE THOUSAND) SUBCUT SCH ×4 (00:44→21:54)
[2017-08-31] MEDS: Insulin GLARGINE(*) 1 UNITS UNIT SUBCUT SCH ×2 (00:44→21:54)
[2017-08-31] MEDS: Insulin LISPRO* 1 UNITS UNIT SUBCUT SCH ×4 (00:45→18:27)
[2017-08-31] MEDS ORDERED: Acetaminophen TAB* 325 MG ONE (00:54)
[2017-08-31] MEDS: Acetaminophen TAB* 325 MG PO PRN ×2 (00:55→19:50)
[2017-08-31] MEDS: Levothyroxine TAB* 100 MCG TAB PO SCH (05:54)
[2017-08-31] MEDS: Nystatin TOP POWDER* 15 GM BTL TOPICAL SCH ×3 (09:00→21:59)
[2017-08-31] MEDS: Citalopram TAB* 40 MG PO SCH (10:39)
[2017-08-31] MEDS: DARIFENACIN 15 MG PO SCH (10:39)
[2017-08-31] MEDS: Ramipril CAP* 5 MG PO SCH (10:39)
--- NOTE | 2017-08-31 17:25 | PN ---
Subjective Date of Service: 08/31/17 Interval History: C/o mild shortness of breath, bilat lower rib pain with deep breath and weakness. Denies chest pain or shortness of breath. Denies N/V/D. Family History: Unchanged from Admission Social History: Unchanged from Admission Past Medical History: Unchanged from Admission Objective Active Medications: Acetaminophen (Tylenol Tab*) 650 mg PO Q4H PRN PRN Reason: FEVER/PAIN Last Admin: 08/31/17 00:55 Dose: 650 mg Al Hydrox/Mg Hydrox/Simethicone (Maalox Plus*) 30 ml PO Q6H PRN PRN Reason: INDIGESTION Carbidopa/Levodopa (Sinemet 25/100 Tab(*)) 1 tab PO TID [facility] Last Admin: 08/31/17 13:58 Dose: 1 tab Citalopram Hydrobromide (Celexa Tab*) 40 mg PO DAILY [facility] Last Admin: 08/31/17 10:39 Dose: 40 mg Darifenacin (Enablex (Nf)) 15 mg PO DAILY [facility] Last Admin: 08/31/17 10:39 Dose: 15 mg Dextrose (D50w Syringe 50 Ml*) 12.5 gm IV PUSH .FOR FS < 60 - SS PRN PRN Reason: FS < 60 Diltiazem HCl (Cardizem Cd Cap*) 360 mg PO BEDTIME [facility] Docusate Sodium (Colace Cap*) 100 mg PO BID PRN PRN Reason: CONSTIPATION Heparin Sodium (Porcine) (Heparin Vial(*)) 5,000 units SUBCUT Q8HR [facility] Last Admin: 08/31/17 13:58 Dose: 5,000 units Insulin Glargine (Lantus(*)) 20 units SUBCUT Q24H [facility] Last Admin: 08/31/17 00:44 Dose: 20 unit Insulin Human Lispro (Humalog*) 0 units SUBCUT AC [facility] PRN Reason: Protocol Last Admin: 08/31/17 13:57 Dose: 1 units Levothyroxine Sodium (Synthroid Tab*) 100 mcg PO DAILY@0600 [facility] Last Admin: 08/31/17 05:54 Dose: 100 mcg Nystatin (Nystatin Top Powder*) 1 applic TOPICAL TID [facility] Ondansetron HCl (Zofran Inj*) 4 mg IV Q4H PRN PRN Reason: NAUSEA/VOMITING Ramipril (Altace Cap*) 5 mg PO DAILY [facility] Last Admin: 08/31/17 10:39 Dose: 5 mg Senna (Senokot Tab*) 1 tab PO BID PRN PRN Reason: CONSTIPATION Oxygen Devices in Use Now: None Appearance: appears weak, [address] in sitting position in the bed. very weak after sitting Eyes: No Scleral Icterus Ears/Nose/Mouth/Throat: Clear Oropharnyx, Mucous Membranes Moist Neck: NL Appearance and Movements; NL JVP, Trachea Midline Respiratory: Symmetrical Chest Expansion and Respiratory Effort, - - diminished t/o bilat, c/o tenderness to palpation to bilat lower ribs. Result Diagrams: 08/30/17 15:17 08/30/17 15:17 Assess/Plan/Problems-Billing Assessment: Ms. Ritchie is a 71 y.o female with a past medical history of hydrocephalus and presumed Parkinson's, who presents to the emergency room after falling out of her bed 3 days ago and has not been able to get up. The patient was admitted on the to the for a similar episode of falling and not being able to get up. Feels weak today. - Patient Problems (1) DM2 (diabetes mellitus, type 2) Current Visit: No Status: Acute Comment: will cont Lantus , and ISS restarting home metformin, glipizide continue fingersticks ac and HS (2) Falls Current Visit: No Status: Acute Code(s): A01.4 - PARATYPHOID FEVER, UNSPECIFIED Comment: Falls forgetfulness suggest NPH. CT brain questions NPH. continue sinamet (3) Hypertension Current Visit: No Status: Acute Code(s): I10 - ESSENTIAL (PRIMARY) HYPERTENSION SNOMED Code(s): 04393031 Comment: stable- continue altace (4) Hypothyroidism Current Visit: No Status: Acute Code(s): E03.9 - HYPOTHYROIDISM, UNSPECIFIED SNOMED Code(s): 45203337 Comment: stable- continue levothyroxine TSH- 1.44 (5) Normal pressure hydrocephalus Current Visit: No Status: Acute Code(s): G91.2 - (IDIOPATHIC) NORMAL PRESSURE HYDROCEPHALUS SNOMED Code(s): 50909854 Comment: continue sinamet (6) Full code status Current Visit: Yes Status: Acute Code(s): Z78.9 - OTHER SPECIFIED HEALTH STATUS SNOMED Code(s): 996957471 (7) DVT prophylaxis Current Visit: No Status: Acute Code(s): SOH9938 - SNOMED Code(s): 458604700 Comment: HSQ Status and Disposition: inpatient- will need PT and most likely placement post hospitalization
[2017-08-31] MEDS: Diltiazem CD CAP* 180 MG PO SCH (21:54)
[2017-09-01] MEDS: Levothyroxine TAB* 100 MCG TAB PO SCH (05:42)
[2017-09-01] MEDS: Heparin VIAL(*) 5000 UNITS/ML VIAL (FIVE THOUSAND) SUBCUT SCH ×3 (05:42→21:14)
[2017-09-01] MEDS: Insulin LISPRO* 1 UNITS UNIT SUBCUT SCH ×3 (09:27→18:02)
[2017-09-01] MEDS: Carbidopa/Levodop 25/100 MG TAB(*) PO SCH ×3 (09:28→21:14)
[2017-09-01] MEDS: Nystatin TOP POWDER* 15 GM BTL TOPICAL SCH ×3 (09:28→21:14)
[2017-09-01] MEDS: Ramipril CAP* 5 MG PO SCH (09:28)
[2017-09-01] MEDS: glipiZIDE TAB* 5 MG PO SCH ×2 (09:28→18:02)
[2017-09-01] MEDS: metFORMIN* 1,000 MG TAB PO SCH ×2 (09:28→18:02)
[2017-09-01] MEDS: Citalopram TAB* 40 MG PO SCH (09:28)
[2017-09-01] MEDS: DARIFENACIN 15 MG PO SCH (09:31)
--- NOTE | 2017-09-01 15:41 | ED ---
Gianluca Mason Jennifer, scribed for Star Hernandez MD on 08/30/17 at 1511 . Complex/Multi-Sys Presentation - HPI Summary HPI Summary: The patient is a 71 year old female who fell while getting into bed last night. She was found on the floor on her back by a visiting nurse this morning. The patient describes that she has had weakness for a while and was in the hospital last week. She explains that she feels no change in weakness today in the ED, but she is now experiencing more zaps from the medication a few times per night. The patient does not want to move into a detention. - History Of Current Complaint Chief Complaint: EDGeneral Time Seen by Provider: 08/30/17 14:16 Hx Obtained From: Patient Onset/Duration: Lasting Hours - Fell last night, Still Present Severity Currently: Mild Severity Initially: Mild - Allergies/Home Medications Allergies/Adverse Reactions: Allergies Allergy/AdvReac Type Severity Reaction Status Date / Time MS Apple [Apple] Allergy Intermediate Anaphylatic Verified 08/13/17 08:50 Shock MS Sulfa Antibiotics Allergy Rash Verified 08/11/17 01:49 [Sulfa Antibiotics] Home Medications: Home Medications Dulaglutide (NF) [Trulicity (NF)] 0.75 mg SUBCUT WEEKLY 08/30/17 [History Confirmed 08/30/17] Insulin GLARGINE(*) [Lantus(*)] 20 units SUBCUT DAILY 08/30/17 [History Confirmed 08/30/17] Solifenacin(NF) [Vesicare(NF)] 5 mg PO DAILY 08/30/17 [History Confirmed ] PMH/Surg Hx/FS Hx/Imm Hx Endocrine/Hematology History: Reports: Hx Diabetes Cardiovascular History: Reports: Hx Hypertension Denies: Hx Pacemaker/ICD History: Denies: Hx Renal Disease Sensory History: Reports: Hx Contacts or Glasses Denies: Hx Cataracts, Hx Eye Injury, Hx Eye Prosthesis, Hx Glaucoma, Hx Legally Blind, Hx Macular Degeneration, Hx Vision Problem, Hx Deafness, Hx Hearing Aid, Hx Hearing Problem, Other Sensory Impairments Opthamlomology History: Reports: Hx Contacts or Glasses Denies: Hx Cataracts, Hx Eye Injury, Hx Eye Prosthesis, Hx Glaucoma, Hx Legally Blind, Hx Macular Degeneration, Hx Vision Problem, Other Sensory Impairments Neurological History: Reports: Other Neuro Impairments/Disorders - some new forgetfulness Psychiatric History: Reports: Hx Depression Denies: Hx Panic Disorder - Surgical History Surgery Procedure, Year, and Place: total hip replacement Infectious Disease History: No Infectious Disease History: Denies: Traveled Outside the [place] in Last 30 Days - Family History Known Family History: Positive: Diabetes - Mother - Social History Alcohol Use: None Substance Use Type: Reports: None Smoking Status (MU): Former Smoker Review of Systems Negative: Fever Positive: Weakness All Other Systems Reviewed And Are Negative: Yes Physical Exam - Summary Physical Exam Summary: Appearance: The patient is well-nourished in no acute distress and in no acute pain. The patient is obese. Skin: The skin is warm and dry and skin color reflects adequate perfusion. HEENT: ~The head is normocephalic and atraumatic. The pupils are equal and reactive. The conjunctivae are clear and without drainage. ~Nares are patent and without drainage. ~Mouth reveals moist mucous membranes and the throat is without erythema and exudate. ~The external ears are intact. The ear canals are patent and without drainage. The tympanic membranes are intact. Neck: the neck is supple with full range of motion and non-tender. There are no carotid bruits. ~There is no neck vein distension. Respiratory: Chest is non-tender. ~Lungs are clear to auscultation and breath sounds are symmetrical and equal. Cardiovascular: The patient is tachycardic. Heart is regular rhythm. ~There is no murmur or rub auscultated. ~~There is no peripheral edema and pulses are symmetrical and equal. Abdomen: The abdomen is soft and non-tender. ~There are normal bowel sounds heard in all four quadrants and there is no organomegaly palpated. Musculoskeletal: There is no back tenderness noted. ~Extremities are non-tender with full range of motion. ~There is good capillary refill. ~There is no peripheral edema or calf tenderness elicited. Extremities: Slight pitting edema of the right lower extremity. Neurological: Patient is alert and oriented to person, place and time. ~The patient has symmetrical motor strength in all four extremities. ~Cranial nerves are grossly intact. Deep tendon reflexes are symmetrical and equal in all four extremities. Psychiatric: The patient has an appropriate affect and does not exhibit any anxiety or depression. Triage Information Reviewed: Yes Vital Signs On Initial Exam: Initial Vitals Temp Pulse Resp BP Pulse Ox 98.3 F 114 20 183/89 94 08/30/17 14:14 08/30/17 14:14 08/30/17 14:14 08/30/17 14:14 08/30/17 14:14 Vital Signs Reviewed: Yes Diagnostics - Vital Signs Vital Signs Temp Pulse Resp BP Pulse Ox 08/30/17 14:14 98.3 F 114 20 183/89 94 - Laboratory Lab Results: Lab Results 08/30/17 08/30/17 08/30/17 Range/Units 15:17 15:17 15:17 WBC 12.7 H (3.5-10.8) 10^3/ul RBC 4.51 (4.0-5.4) 10^6/ul Hgb 12.8 (12.0-16.0) g/dl Hct 39 (35-47) % MCV 85 (80-97) fL MCH 29 (27-31) pg MCHC 33 (31-36) g/dl RDW 16 H (10.5-15) % Plt Count 328 (150-450) 10^3/ul MPV 9 (7.4-10.4) um3 Neut % (Auto) 82.8 (38-83) % Lymph % (Auto) 9.3 L (25-47) % [place] % (Auto) 7.2 (1-9) % Eos % (Auto) 0.2 (0-6) % Baso % (Auto) 0.5 (0-2) % Absolute Neuts (auto) 10.5 H (1.5-7.7) 10^3/ul Absolute Lymphs (auto) 1.2 (1.0-4.8) 10^3/ul Absolute Monos (auto) 0.9 H (0-0.8) 10^3/ul Absolute Eos (auto) 0 (0-0.6) 10^3/ul Absolute Basos (auto) 0.1 (0-0.2) 10^3/ul Absolute Nucleated RBC 0 10^3/ul Nucleated RBC % 0 Sodium 132 L (133-145) mmol/L Potassium 4.5 (3.5-5.0) mmol/L Chloride 97 L (101-111) mmol/L Carbon Dioxide 26 (22-32) mmol/L Anion Gap 9 (2-11) mmol/L BUN 25 H (6-24) mg/dL Creatinine 0.80 (0.51-0.95) mg/dL Est GFR ( Amer) 91.5 (>60) Est GFR (Non-Af Amer) 71.1 (>60) BUN/Creatinine Ratio 31.3 H (8-20) Glucose 301 H (70-100) mg/dL Lactic Acid 1.7 (0.5-2.0) mmol/L Calcium 10.0 (8.6-10.3) mg/dL Magnesium 2.2 (1.9-2.7) mg/dL Total Bilirubin 0.50 (0.2-1.0) mg/dL AST 10 L (13-39) U/L ALT 30 (7-52) U/L Alkaline Phosphatase 91 (34-104) U/L Total Creatine Kinase 25 (10-223) U/L Troponin I 0.01 (<0.04) ng/mL Total Protein 8.3 (6.4-8.9) g/dL Albumin 3.5 (3.2-5.2) g/dL Globulin 4.8 H (2-4) g/dL Albumin/Globulin Ratio 0.7 L (1-3) TSH 1.44 (0.34-5.60) mcIU/mL Urine Color Urine Appearance Urine pH (5-9) Ur Specific [place] (1.010-1.030) Urine Protein (Negative) Urine Ketones (Negative) Urine Blood (Negative) Urine Nitrate (Negative) Urine Bilirubin (Negative) Urine Urobilinogen (Negative) Ur Leukocyte Esterase (Negative) Urine WBC (Auto) (Absent) Urine RBC (Auto) (Absent) Ur Squamous Epith Cells (Absent) Amorphous Crystals (Absent) Urine Bacteria (Absent) Hyaline Casts (Absent) Urine Glucose (Negative) 08/30/17 Range/Units 20:15 WBC (3.5-10.8) 10^3/ul RBC (4.0-5.4) 10^6/ul Hgb (12.0-16.0) g/dl Hct (35-47) % MCV (80-97) fL MCH (27-31) pg MCHC (31-36) g/dl RDW (10.5-15) % Plt Count (150-450) 10^3/ul MPV (7.4-10.4) um3 Neut % (Auto) (38-83) % Lymph % (Auto) (25-47) % [place] % (Auto) (1-9) % Eos % (Auto) (0-6) % Baso % (Auto) (0-2) % Absolute Neuts (auto) (1.5-7.7) 10^3/ul Absolute Lymphs (auto) (1.0-4.8) 10^3/ul Absolute Monos (auto) (0-0.8) 10^3/ul Absolute Eos (auto) (0-0.6) 10^3/ul Absolute Basos (auto) (0-0.2) 10^3/ul Absolute Nucleated RBC 10^3/ul Nucleated RBC % Sodium (133-145) mmol/L Potassium (3.5-5.0) mmol/L Chloride (101-111) mmol/L Carbon Dioxide (22-32) mmol/L Anion Gap (2-11) mmol/L BUN (6-24) mg/dL Creatinine (0.51-0.95) mg/dL Est GFR ( Amer) (>60) Est GFR (Non-Af Amer) (>60) BUN/Creatinine Ratio (8-20) Glucose (70-100) mg/dL Lactic Acid (0.5-2.0) mmol/L Calcium (8.6-10.3) mg/dL Magnesium (1.9-2.7) mg/dL Total Bilirubin (0.2-1.0) mg/dL AST (13-39) U/L ALT (7-52) U/L Alkaline Phosphatase (34-104) U/L Total Creatine Kinase (10-223) U/L Troponin I (<0.04) ng/mL Total Protein (6.4-8.9) g/dL Albumin (3.2-5.2) g/dL Globulin (2-4) g/dL Albumin/Globulin Ratio (1-3) TSH (0.34-5.60) mcIU/mL Urine Color Yellow Urine Appearance Cloudy Urine pH 6.0 (5-9) Ur Specific [place] 1.023 (1.010-1.030) Urine Protein 3+(>=500 mg/dl) H (Negative) Urine Ketones Negative (Negative) Urine Blood Negative (Negative) Urine Nitrate Negative (Negative) Urine Bilirubin Negative (Negative) Urine Urobilinogen Negative (Negative) Ur Leukocyte Esterase Negative (Negative) Urine WBC (Auto) Trace(0-5/hpf) (Absent) Urine RBC (Auto) Trace(0-2/hpf) (Absent) Ur Squamous Epith Cells Present H (Absent) Amorphous Crystals Present H (Absent) Urine Bacteria 1+ H (Absent) Hyaline Casts Present H (Absent) Urine Glucose 1+(50 mg/dl) H (Negative) Result Diagrams: 08/30/17 15:17 08/30/17 15:17 Lab Statement: Any lab studies that have been ordered have been reviewed, and results considered in the medical decision making process. Complex Multi-Symp Course/Dx Course Of Treatment: Ms. Mustafa was apparently on the floor all night having fallen getting into bed. She was recently hospitlized for the same and the thought was that she is developing alzheimer disease. She was hesitant to be put into a NH even temporarily and was D/C'd home after a Psych consult to determine competance. She has fallen several times since and although her W/U in the ED is negative, she is being seen by the hospitalists for further direction. - Diagnoses Provider Diagnoses: Ataxia Discharge - Discharge Plan Condition: Stable Disposition: ADMITTED TO [facility] documentation as recorded by the Gianluca wood Jennifer accurately reflects the service I personally performed and the decisions made by me, Star Hernandez MD.
--- NOTE | 2017-09-01 21:05 | PN ---
Subjective Date of Service: 09/01/17 Interval History: Denies chest pain or shortness of breath, Denies abd pain, denies N/V/D. Family History: Unchanged from Admission Social History: Unchanged from Admission Past Medical History: Unchanged from Admission Objective Active Medications: Acetaminophen (Tylenol Tab*) 650 mg PO Q4H PRN PRN Reason: FEVER/PAIN Last Admin: 08/31/17 19:50 Dose: 650 mg Al Hydrox/Mg Hydrox/Simethicone (Maalox Plus*) 30 ml PO Q6H PRN PRN Reason: INDIGESTION Carbidopa/Levodopa (Sinemet 25/100 Tab(*)) 1 tab PO TID [facility] Last Admin: 09/01/17 15:02 Dose: 1 tab Citalopram Hydrobromide (Celexa Tab*) 40 mg PO DAILY [facility] Last Admin: 09/01/17 09:28 Dose: 40 mg Darifenacin (Enablex (Nf)) 15 mg PO DAILY [facility] Last Admin: 09/01/17 09:31 Dose: 15 mg Dextrose (D50w Syringe 50 Ml*) 12.5 gm IV PUSH .FOR FS < 60 - SS PRN PRN Reason: FS < 60 Diltiazem HCl (Cardizem Cd Cap*) 360 mg PO BEDTIME [facility] Last Admin: 08/31/17 21:54 Dose: 360 mg Docusate Sodium (Colace Cap*) 100 mg PO BID PRN PRN Reason: CONSTIPATION Glipizide (Glucotrol Tab*) 5 mg PO 0800,1700 [facility] Last Admin: 09/01/17 18:02 Dose: 5 mg Heparin Sodium (Porcine) (Heparin Vial(*)) 5,000 units SUBCUT Q8HR [facility] Last Admin: 09/01/17 15:02 Dose: 5,000 units Insulin Glargine (Lantus(*)) 20 units SUBCUT Q24H [facility] Last Admin: 08/31/17 21:54 Dose: 20 unit Insulin Human Lispro (Humalog*) 0 units SUBCUT AC [facility] PRN Reason: Protocol Last Admin: 09/01/17 18:02 Dose: 2 units Levothyroxine Sodium (Synthroid Tab*) 100 mcg PO DAILY@0600 [facility] Last Admin: 09/01/17 05:42 Dose: 100 mcg Metformin HCl (Glucophage*) 1,000 mg PO 0800,1700 [facility] Last Admin: 09/01/17 18:02 Dose: 1,000 mg Nystatin (Nystatin Top Powder*) 1 applic TOPICAL TID [facility] Last Admin: 09/01/17 15:02 Dose: 1 applic Ondansetron HCl (Zofran Inj*) 4 mg IV Q4H PRN PRN Reason: NAUSEA/VOMITING Ramipril (Altace Cap*) 5 mg PO DAILY [facility] Last Admin: 09/01/17 09:28 Dose: 5 mg Senna (Senokot Tab*) 1 tab PO BID PRN PRN Reason: CONSTIPATION Vital Signs - 8 hr 09/01/17 09/01/17 15:20 16:00 Temperature 98.8 F Pulse Rate 89 Respiratory 18 Rate Blood Pressure 128/54 (mmHg) O2 Sat by Pulse 93 93 Oximetry Oxygen Devices in Use Now: None Appearance: appears comfortable sittingin the bed, more awake today Eyes: No Scleral Icterus Ears/Nose/Mouth/Throat: Clear Oropharnyx, Mucous Membranes Moist Neck: NL Appearance and Movements; NL JVP, Trachea Midline Respiratory: Symmetrical Chest Expansion and Respiratory Effort, Clear to Auscultation Cardiovascular: NL Sounds; No Murmurs; No JVD, RRR, No Edema Abdominal: NL Sounds; No Tenderness; No Distention Extremities: No Edema, No Clubbing, Cyanosis Skin: No Rash or Ulcers Neurological: Alert and Oriented x 3 Nutrition: Taking PO's Result Diagrams: 08/30/17 15:17 08/30/17 15:17 Additional Lab and Data: Lab Results 08/30/17 08/30/17 08/30/17 Range/Units 15:17 15:17 15:17 WBC 12.7 H (3.5-10.8) 10^3/ul RBC 4.51 (4.0-5.4) 10^6/ul Hgb 12.8 (12.0-16.0) g/dl Hct 39 (35-47) % MCV 85 (80-97) fL MCH 29 (27-31) pg MCHC 33 (31-36) g/dl RDW 16 H (10.5-15) % Plt Count 328 (150-450) 10^3/ul MPV 9 (7.4-10.4) um3 Neut % (Auto) 82.8 (38-83) % Lymph % (Auto) 9.3 L (25-47) % [place] % (Auto) 7.2 (1-9) % Eos % (Auto) 0.2 (0-6) % Baso % (Auto) 0.5 (0-2) % Absolute Neuts (auto) 10.5 H (1.5-7.7) 10^3/ul Absolute Lymphs (auto) 1.2 (1.0-4.8) 10^3/ul Absolute Monos (auto) 0.9 H (0-0.8) 10^3/ul Absolute Eos (auto) 0 (0-0.6) 10^3/ul Absolute Basos (auto) 0.1 (0-0.2) 10^3/ul Absolute Nucleated RBC 0 10^3/ul Nucleated RBC % 0 Sodium 132 L (133-145) mmol/L Potassium 4.5 (3.5-5.0) mmol/L Chloride 97 L (101-111) mmol/L Carbon Dioxide 26 (22-32) mmol/L Anion Gap 9 (2-11) mmol/L BUN 25 H (6-24) mg/dL Creatinine 0.80 (0.51-0.95) mg/dL Est GFR ( Amer) 91.5 (>60) Est GFR (Non-Af Amer) 71.1 (>60) BUN/Creatinine Ratio 31.3 H (8-20) Glucose 301 H (70-100) mg/dL Lactic Acid 1.7 (0.5-2.0) mmol/L Calcium 10.0 (8.6-10.3) mg/dL Magnesium 2.2 (1.9-2.7) mg/dL Total Bilirubin 0.50 (0.2-1.0) mg/dL AST 10 L (13-39) U/L ALT 30 (7-52) U/L Alkaline Phosphatase 91 (34-104) U/L Total Creatine Kinase 25 (10-223) U/L Troponin I 0.01 (<0.04) ng/mL Total Protein 8.3 (6.4-8.9) g/dL Albumin 3.5 (3.2-5.2) g/dL Globulin 4.8 H (2-4) g/dL Albumin/Globulin Ratio 0.7 L (1-3) TSH 1.44 (0.34-5.60) mcIU/mL Urine Color Urine Appearance Urine pH (5-9) Ur Specific [place] (1.010-1.030) Urine Protein (Negative) Urine Ketones (Negative) Urine Blood (Negative) Urine Nitrate (Negative) Urine Bilirubin (Negative) Urine Urobilinogen (Negative) Ur Leukocyte Esterase (Negative) Urine WBC (Auto) (Absent) Urine RBC (Auto) (Absent) Ur Squamous Epith Cells (Absent) Amorphous Crystals (Absent) Urine Bacteria (Absent) Hyaline Casts (Absent) Urine Glucose (Negative) 08/30/17 Range/Units 20:15 WBC (3.5-10.8) 10^3/ul RBC (4.0-5.4) 10^6/ul Hgb (12.0-16.0) g/dl Hct (35-47) % MCV (80-97) fL MCH (27-31) pg MCHC (31-36) g/dl RDW (10.5-15) % Plt Count (150-450) 10^3/ul MPV (7.4-10.4) um3 Neut % (Auto) (38-83) % Lymph % (Auto) (25-47) % [place] % (Auto) (1-9) % Eos % (Auto) (0-6) % Baso % (Auto) (0-2) % Absolute Neuts (auto) (1.5-7.7) 10^3/ul Absolute Lymphs (auto) (1.0-4.8) 10^3/ul Absolute Monos (auto) (0-0.8) 10^3/ul Absolute Eos (auto) (0-0.6) 10^3/ul Absolute Basos (auto) (0-0.2) 10^3/ul Absolute Nucleated RBC 10^3/ul Nucleated RBC % Sodium (133-145) mmol/L Potassium (3.5-5.0) mmol/L Chloride (101-111) mmol/L Carbon Dioxide (22-32) mmol/L Anion Gap (2-11) mmol/L BUN (6-24) mg/dL Creatinine (0.51-0.95) mg/dL Est GFR ( Amer) (>60) Est GFR (Non-Af Amer) (>60) BUN/Creatinine Ratio (8-20) Glucose (70-100) mg/dL Lactic Acid (0.5-2.0) mmol/L Calcium (8.6-10.3) mg/dL Magnesium (1.9-2.7) mg/dL Total Bilirubin (0.2-1.0) mg/dL AST (13-39) U/L ALT (7-52) U/L Alkaline Phosphatase (34-104) U/L Total Creatine Kinase (10-223) U/L Troponin I (<0.04) ng/mL Total Protein (6.4-8.9) g/dL Albumin (3.2-5.2) g/dL Globulin (2-4) g/dL Albumin/Globulin Ratio (1-3) TSH (0.34-5.60) mcIU/mL Urine Color Yellow Urine Appearance Cloudy Urine pH 6.0 (5-9) Ur Specific [place] 1.023 (1.010-1.030) Urine Protein 3+(>=500 mg/dl) H (Negative) Urine Ketones Negative (Negative) Urine Blood Negative (Negative) Urine Nitrate Negative (Negative) Urine Bilirubin Negative (Negative) Urine Urobilinogen Negative (Negative) Ur Leukocyte Esterase Negative (Negative) Urine WBC (Auto) Trace(0-5/hpf) (Absent) Urine RBC (Auto) Trace(0-2/hpf) (Absent) Ur Squamous Epith Cells Present H (Absent) Amorphous Crystals Present H (Absent) Urine Bacteria 1+ H (Absent) Hyaline Casts Present H (Absent) Urine Glucose 1+(50 mg/dl) H (Negative) Assess/Plan/Problems-Billing Assessment: Ms. Ritchie is a 71 y.o female with a past medical history of hydrocephalus and presumed Parkinson's, who presents to the emergency room after falling out of her bed 3 days ago and has not been able to get up. The patient was admitted on the to the for a similar episode of falling and not being able to get up. Feels weak today. - Patient Problems (1) DM2 (diabetes mellitus, type 2) Current Visit: No Status: Acute Comment: will cont Lantus , and ISS restarting home metformin, glipizide continue fingersticks ac and HS (2) Falls Current Visit: No Status: Acute Code(s): A01.4 - PARATYPHOID FEVER, UNSPECIFIED Comment: Falls forgetfulness suggest NPH. CT brain questions NPH. continue sinamet (3) Hypertension Current Visit: No Status: Acute Code(s): I10 - ESSENTIAL (PRIMARY) HYPERTENSION SNOMED Code(s): 73962700 Comment: stable- continue altace (4) Hypothyroidism Current Visit: No Status: Acute Code(s): E03.9 - HYPOTHYROIDISM, UNSPECIFIED SNOMED Code(s): 55735529 Comment: stable- continue levothyroxine TSH- 1.44 (5) Normal pressure hydrocephalus Current Visit: No Status: Acute Code(s): G91.2 - (IDIOPATHIC) NORMAL PRESSURE HYDROCEPHALUS SNOMED Code(s): 81334349 Comment: continue sinamet (6) Full code status Current Visit: Yes Status: Acute Code(s): Z78.9 - OTHER SPECIFIED HEALTH STATUS SNOMED Code(s): 936094472 (7) DVT prophylaxis Current Visit: No Status: Acute Code(s): ZGK9701 - SNOMED Code(s): 558825142 Comment: HSQ Status and Disposition: inpatient- will need PT and most likely placement post hospitalization, Denied to remit to [facility], patient does not want to go to rehab if she does not go to PM[facility]- will get capacity evaluation- [facility]HU aware.
[2017-09-01] MEDS: Diltiazem CD CAP* 180 MG PO SCH (21:14)
[2017-09-01] MEDS: Insulin GLARGINE(*) 1 UNITS UNIT SUBCUT SCH (21:14)
[2017-09-02] MEDS: Levothyroxine TAB* 100 MCG TAB PO SCH (05:36)
[2017-09-02] MEDS: Acetaminophen TAB* 325 MG PO PRN ×2 (05:41→19:47)
[2017-09-02] MEDS: Heparin VIAL(*) 5000 UNITS/ML VIAL (FIVE THOUSAND) SUBCUT SCH ×3 (05:42→20:59)
[2017-09-02] MEDS: metFORMIN* 1,000 MG TAB PO SCH ×2 (07:55→17:35)
[2017-09-02] MEDS: glipiZIDE TAB* 5 MG PO SCH ×2 (07:55→17:35)
[2017-09-02 08:52] LABS: ABS Basophils 0.1 10^3/ul (0-0.2); ABS Eosinophils 0.2 10^3/ul (0-0.6); ABS Lymphocytes 1.9 10^3/ul (1.0-4.8); ABS Monocytes 0.6 10^3/ul (0-0.8); ABS Nucleated RBC 0 10^3/ul; Eosinophil % 3.1 % (0-6); Hematocrit 31 % (35-47); Hemoglobin 10.5 g/dl (12.0-16.0); Lymphocyte % 23.9 % (25-47); Mean Corpuscular HGB Conc 34 g/dl (31-36); Mean Corpuscular Hemoglobin 29 pg (27-31); Mean Corpuscular Volume 84 fL (80-97); Mean Platelet Volume 8 um3 (7.4-10.4); Nucleated Red Blood Cells % 0; Platelet Count 226 10^3/ul (150-450); Red Blood Count 3.65 10^6/ul (4.0-5.4); Red Cell Distribution Width 16 % (10.5-15); White Blood Count 7.8 10^3/ul (3.5-10.8)
[2017-09-02 09:07] LABS: EGFR Non-African American 80.3 (>60)
[2017-09-02] MEDS: Citalopram TAB* 40 MG PO SCH (10:19)
[2017-09-02] MEDS: Ramipril CAP* 5 MG PO SCH (10:19)
[2017-09-02] MEDS: Carbidopa/Levodop 25/100 MG TAB(*) PO SCH ×3 (10:19→21:01)
[2017-09-02] MEDS: Insulin LISPRO* 1 UNITS UNIT SUBCUT SCH ×3 (10:20→18:51)
[2017-09-02] MEDS: DARIFENACIN 15 MG PO SCH (10:22)
[2017-09-02] MEDS: Nystatin TOP POWDER* 15 GM BTL TOPICAL SCH ×3 (14:03→21:02)
--- NOTE | 2017-09-02 15:28 | PN ---
Subjective Date of Service: 09/02/17 Interval History: Ms. Mustafa denies any complaint today. She reports being able to ambulate to the bathroom. She denies chest pain, SOB, nausea, or abdominal pain. Family History: Unchanged from Admission Social History: Unchanged from Admission Past Medical History: Unchanged from Admission Objective Active Medications: Acetaminophen (Tylenol Tab*) 650 mg PO Q4H PRN Al Hydrox/Mg Hydrox/Simethicone (Maalox Plus*) 30 ml PO Q6H PRN Carbidopa/Levodopa (Sinemet 25/100 Tab(*)) 1 tab PO TID [facility] Citalopram Hydrobromide (Celexa Tab*) 40 mg PO DAILY [facility] Darifenacin (Enablex (Nf)) 15 mg PO DAILY [facility] Dextrose (D50w Syringe 50 Ml*) 12.5 gm IV PUSH .FOR FS < 60 - SS PRN Diltiazem HCl (Cardizem Cd Cap*) 360 mg PO BEDTIME [facility] Docusate Sodium (Colace Cap*) 100 mg PO BID PRN Glipizide (Glucotrol Tab*) 5 mg PO 0800,1700 [facility] Heparin Sodium (Porcine) (Heparin Vial(*)) 5,000 units SUBCUT Q8HR [facility] Insulin Glargine (Lantus(*)) 20 units SUBCUT Q24H [facility] Insulin Human Lispro (Humalog*) 0 units SUBCUT AC [facility] Levothyroxine Sodium (Synthroid Tab*) 100 mcg PO DAILY@0600 [facility] Metformin HCl (Glucophage*) 1,000 mg PO 0800,1700 [facility] Nystatin (Nystatin Top Powder*) 1 applic TOPICAL TID [facility] Ondansetron HCl (Zofran Inj*) 4 mg IV Q4H PRN Ramipril (Altace Cap*) 5 mg PO DAILY [facility] Senna (Senokot Tab*) 1 tab PO BID PRN Vital Signs: Temp Pulse Resp BP Pulse Ox 98.2 F 77 16 158/72 94 09/02/17 15:47 09/02/17 15:47 09/02/17 15:47 09/02/17 15:47 09/02/17 15:47 Oxygen Devices in Use Now: None Appearance: Female lying in bed in NAD Eyes: No Scleral Icterus Ears/Nose/Mouth/Throat: NL Teeth, Lips, Gums Respiratory: Symmetrical Chest Expansion and Respiratory Effort, Clear to Auscultation Cardiovascular: NL Sounds; No Murmurs; No JVD, No Edema Abdominal: NL Sounds; No Tenderness; No Distention Extremities: No Edema Skin: No Rash or Ulcers Neurological: Alert and Oriented x 3, NL Muscle Strength and Tone, - - Flat affect, slow to respond Nutrition: Taking PO's Result Diagrams: 09/02/17 08:46 09/02/17 08:46 Additional Lab and Data: Vital Signs: Temp Pulse Resp BP Pulse Ox 98.2 F 86 20 127/55 94 09/02/17 11:36 09/02/17 11:36 09/02/17 13:52 09/02/17 11:36 09/02/17 11:36 Assess/Plan/Problems-Billing Assessment: Ms. Mustafa is a 71 yo female with a past medical history of hydrocephalus and presumed Parkinson's, who presents to the emergency room after repeated falls. - Patient Problems (1) Falls Current Visit: No Comment: - Suspect related to NPH, possibly parkinson's, morbid obesity, and dementia. - Seen by neurology 08/11/17 with only recommendation to continue sinemet. - Despite two recent falls with prolonged downtime, patient refusing subacute rehab. Seen by psychiatrist, deemed to have capacity to make medical decisions. (2) Normal pressure hydrocephalus Comment: - Appears to be chronic issue. - Will ask neurology to comment. (3) Parkinsonism Comment: - Continue sinemet. - Patient reports she did not rock picker sinemet at home, therefore she was likely not on this medication for 4-5 days (which could have contributed somewhat to her falls) (4) Hypertension Comment: - SBP 120-150s. - Continue ramipril and diltiazem. (5) DM2 (diabetes mellitus, type 2) Comment: - BGs well controlled. - Cont Lantus, metformin and glipizide with lispro SSI coverage for meals. (6) Hypothyroidism Comment: - TSH 1.44. - Continue levothyroxine. (7) Depression Comment: - Continue citalopram. (8) Overactive bladder Comment: - Continue enablex. (9) DVT prophylaxis Comment: - HSQ (10) Full code status Comment: Status and Disposition: Inpatient - will need PT and most likely placement post hospitalization. Denied to remit to PM[facility], patient does not want to go to rehab if she does not go to PMRU - will get capacity evaluation - [facility] aware.
[2017-09-02] MEDS: Insulin GLARGINE(*) 1 UNITS UNIT SUBCUT SCH (20:59)
[2017-09-02] MEDS: Diltiazem CD CAP* 180 MG PO SCH (21:00)
[2017-09-03] MEDS: Levothyroxine TAB* 100 MCG TAB PO SCH (06:07)
[2017-09-03] MEDS: Heparin VIAL(*) 5000 UNITS/ML VIAL (FIVE THOUSAND) SUBCUT SCH ×3 (06:08→21:50)
[2017-09-03] MEDS: glipiZIDE TAB* 5 MG PO SCH ×2 (07:52→17:02)
[2017-09-03] MEDS: metFORMIN* 1,000 MG TAB PO SCH ×2 (07:52→17:02)
[2017-09-03] MEDS: DARIFENACIN 15 MG PO SCH (09:43)
[2017-09-03] MEDS: Citalopram TAB* 40 MG PO SCH (09:43)
[2017-09-03] MEDS: Insulin LISPRO* 1 UNITS UNIT SUBCUT SCH ×3 (09:44→18:17)
[2017-09-03] MEDS: Carbidopa/Levodop 25/100 MG TAB(*) PO SCH ×3 (09:44→21:49)
[2017-09-03] MEDS: Ramipril CAP* 5 MG PO SCH (09:44)
--- NOTE | 2017-09-03 09:50 | PN ---
Subjective Date of Service: 09/03/17 Interval History: Ms. Mustafa states that she is feeling ok today. She denies any specific complaint including chest pain, SOB, nausea, or abdominal pain. Staff note that she was able to get up to the chair essentially independently today. Family History: Unchanged from Admission Social History: Unchanged from Admission Past Medical History: Unchanged from Admission Objective Active Medications: Acetaminophen (Tylenol Tab*) 650 mg PO Q4H PRN Al Hydrox/Mg Hydrox/Simethicone (Maalox Plus*) 30 ml PO Q6H PRN Carbidopa/Levodopa (Sinemet 25/100 Tab(*)) 1 tab PO TID [facility] Citalopram Hydrobromide (Celexa Tab*) 40 mg PO DAILY [facility] Darifenacin (Enablex (Nf)) 15 mg PO DAILY [facility] Dextrose (D50w Syringe 50 Ml*) 12.5 gm IV PUSH .FOR FS < 60 - SS PRN Diltiazem HCl (Cardizem Cd Cap*) 360 mg PO BEDTIME [facility] Docusate Sodium (Colace Cap*) 100 mg PO BID PRN Glipizide (Glucotrol Tab*) 5 mg PO 0800,1700 [facility] Heparin Sodium (Porcine) (Heparin Vial(*)) 5,000 units SUBCUT Q8HR [facility] Insulin Glargine (Lantus(*)) 20 units SUBCUT Q24H [facility] Insulin Human Lispro (Humalog*) 0 units SUBCUT AC [facility] Levothyroxine Sodium (Synthroid Tab*) 100 mcg PO DAILY@0600 [facility] Metformin HCl (Glucophage*) 1,000 mg PO 0800,1700 [facility] Nystatin (Nystatin Top Powder*) 1 applic TOPICAL TID [facility] Ondansetron HCl (Zofran Inj*) 4 mg IV Q4H PRN Ramipril (Altace Cap*) 5 mg PO DAILY [facility] Senna (Senokot Tab*) 1 tab PO BID PRN Vital Signs: Temp Pulse Resp BP Pulse Ox 98.6 F 76 18 155/69 94 09/03/17 07:44 09/03/17 07:44 09/03/17 07:44 09/03/17 07:44 09/03/17 07:44 Oxygen Devices in Use Now: None Appearance: Female lying in bed in NAD Eyes: No Scleral Icterus Ears/Nose/Mouth/Throat: Mucous Membranes Moist Neck: Trachea Midline Respiratory: Symmetrical Chest Expansion and Respiratory Effort, Clear to Auscultation Cardiovascular: NL Sounds; No Murmurs; No JVD, No Edema Abdominal: NL Sounds; No Tenderness; No Distention Lymphatic: No Cervical Adenopathy Extremities: No Edema Skin: No Rash or Ulcers Neurological: Alert and Oriented x 3, NL Muscle Strength and Tone, - - flat affect, slow to respond Nutrition: Taking PO's Result Diagrams: 09/02/17 08:46 09/02/17 08:46 Additional Lab and Data: . Assess/Plan/Problems-Billing Assessment: Ms. Mustafa is a 71 yo female with a past medical history of hydrocephalus and presumed Parkinson's, who presents to the emergency room after repeated falls. - Patient Problems (1) Falls Current Visit: No Comment: - Suspect related to NPH, possibly parkinson's, morbid obesity, and dementia. - Seen by neurology during last hospitalization with recommendation to continue sinemet x 4 weeks and then re-eval. - Despite two recent falls with prolonged downtime, patient refusing subacute rehab. Seen by psychiatrist, deemed to have capacity to make medical decisions. (2) Normal pressure hydrocephalus Comment: - Appears to be chronic issue. - Will ask neurology to comment on timing of any intervention. (3) Parkinsonism Comment: - Continue sinemet. - Patient reports she did not fern picker sinemet at home, therefore she was likely not on this medication for 4-5 days (which could have contributed somewhat to her fall). (4) Hypertension Comment: - SBP 120-150s. - Continue ramipril and diltiazem. (5) DM2 (diabetes mellitus, type 2) Comment: - BGs well controlled. - Cont Lantus, metformin and glipizide with lispro SSI coverage for meals. (6) Hypothyroidism Comment: - TSH 1.44. - Continue levothyroxine. (7) Depression Comment: - Continue citalopram. (8) Overactive bladder Comment: - Continue enablex. (9) DVT prophylaxis Comment: - HSQ (10) Full code status Comment: Status and Disposition: Inpatient. Patient has capacity to refused [facility]. gum dipper following.
[2017-09-03] MEDS: Nystatin TOP POWDER* 15 GM BTL TOPICAL SCH ×3 (12:15→21:53)
[2017-09-03] MEDS: Diltiazem CD CAP* 180 MG PO SCH (21:48)
[2017-09-03] MEDS: Insulin GLARGINE(*) 1 UNITS UNIT SUBCUT SCH (21:51)
[2017-09-04] MEDS: Heparin VIAL(*) 5000 UNITS/ML VIAL (FIVE THOUSAND) SUBCUT SCH ×3 (06:12→21:51)
[2017-09-04] MEDS: Levothyroxine TAB* 100 MCG TAB PO SCH (06:12)
--- NOTE | 2017-09-04 07:40 | PN ---
Subjective Date of Service: 09/04/17 Interval History: Ms. Mustafa reports feeling a bit stronger and more energetic today. She denies any complaint of chest pain, SOB, nausea, or abdominal pain. Family History: Unchanged from Admission Social History: Unchanged from Admission Past Medical History: Unchanged from Admission Objective Active Medications: Acetaminophen (Tylenol Tab*) 650 mg PO Q4H PRN Al Hydrox/Mg Hydrox/Simethicone (Maalox Plus*) 30 ml PO Q6H PRN Carbidopa/Levodopa (Sinemet 25/100 Tab(*)) 1 tab PO TID [facility] Citalopram Hydrobromide (Celexa Tab*) 40 mg PO DAILY [facility] Darifenacin (Enablex (Nf)) 15 mg PO DAILY [facility] Dextrose (D50w Syringe 50 Ml*) 12.5 gm IV PUSH .FOR FS < 60 - SS PRN Diltiazem HCl (Cardizem Cd Cap*) 360 mg PO BEDTIME [facility] Docusate Sodium (Colace Cap*) 100 mg PO BID PRN Glipizide (Glucotrol Tab*) 5 mg PO 0800,1700 [facility] Heparin Sodium (Porcine) (Heparin Vial(*)) 5,000 units SUBCUT Q8HR [facility] Insulin Glargine (Lantus(*)) 20 units SUBCUT Q24H [facility] Insulin Human Lispro (Humalog*) 0 units SUBCUT AC [facility] Levothyroxine Sodium (Synthroid Tab*) 100 mcg PO DAILY@0600 [facility] Metformin HCl (Glucophage*) 1,000 mg PO 0800,1700 [facility] Nystatin (Nystatin Top Powder*) 1 applic TOPICAL TID [facility] Ondansetron HCl (Zofran Inj*) 4 mg IV Q4H PRN Ramipril (Altace Cap*) 5 mg PO DAILY [facility] Senna (Senokot Tab*) 1 tab PO BID PRN Vital Signs: Temp Pulse Resp BP Pulse Ox 98.7 F 84 16 160/77 94 09/03/17 23:47 09/03/17 23:47 09/03/17 23:47 09/03/17 23:47 09/04/17 00:00 Oxygen Devices in Use Now: None Appearance: Female sitting up in chair in NAD Eyes: No Scleral Icterus Ears/Nose/Mouth/Throat: Mucous Membranes Moist Neck: Trachea Midline Respiratory: Symmetrical Chest Expansion and Respiratory Effort, Clear to Auscultation Cardiovascular: NL Sounds; No Murmurs; No JVD, No Edema Lymphatic: No Cervical Adenopathy Extremities: No Edema Skin: No Rash or Ulcers Neurological: Alert and Oriented x 3, NL Muscle Strength and Tone, - - Flat affect, slow responses Nutrition: Taking PO's Result Diagrams: 09/02/17 08:46 09/02/17 08:46 Additional Lab and Data: . Assess/Plan/Problems-Billing Assessment: Ms. Mustafa is a 71 yo female with a past medical history of hydrocephalus and presumed Parkinson's, who presents to the emergency room after repeated falls. - Patient Problems (1) Falls Current Visit: No Comment: - Suspect related to NPH, possibly parkinson's, morbid obesity, and dementia. - Seen by neurology during last hospitalization with recommendation to continue sinemet x 4 weeks and then re-eval. - Despite two recent falls with prolonged downtime, patient does not want NH placement and is hopeful to remain at home. Seen by psychiatrist, deemed to have capacity to make medical decisions. - Plan for family meeting on to review options for increased support at home. (2) Normal pressure hydrocephalus Comment: - Appears to be chronic issue. - Will ask neurology to comment on timing of any intervention. (3) Parkinsonism Comment: - Continue sinemet. - Patient reports she did not chart picker sinemet at home, therefore she was likely not on this medication for 4-5 days (which could have contributed somewhat to her fall). (4) Hypertension Comment: - SBP 120-150s. - Continue ramipril and diltiazem. (5) DM2 (diabetes mellitus, type 2) Comment: - BGs well controlled. - Cont Lantus, metformin and glipizide with lispro SSI coverage for meals. (6) Hypothyroidism Comment: - TSH 1.44. - Continue levothyroxine. (7) Depression Comment: - Continue citalopram. (8) Overactive bladder Comment: - Continue enablex. (9) DVT prophylaxis Comment: - HSQ (10) Full code status Comment: Status and Disposition: Inpatient. Patient has capacity to refused [facility]. electric shaver mechanic following.
[2017-09-04] MEDS: metFORMIN* 1,000 MG TAB PO SCH ×2 (07:56→19:23)
[2017-09-04] MEDS: Citalopram TAB* 40 MG PO SCH (07:56)
[2017-09-04] MEDS: Ramipril CAP* 5 MG PO SCH (07:56)
[2017-09-04] MEDS: Carbidopa/Levodop 25/100 MG TAB(*) PO SCH ×3 (07:56→21:48)
[2017-09-04] MEDS: glipiZIDE TAB* 5 MG PO SCH ×2 (07:56→19:23)
[2017-09-04] MEDS: DARIFENACIN 15 MG PO SCH (07:59)
[2017-09-04] MEDS: Nystatin TOP POWDER* 15 GM BTL TOPICAL SCH ×3 (08:01→21:53)
[2017-09-04] MEDS: Insulin LISPRO* 1 UNITS UNIT SUBCUT SCH ×3 (10:27→19:22)
--- NOTE | 2017-09-04 16:14 | CONSULT ---
Identification - Patient Identification Reason for Psychiatric Consultation: Other - Capacity to make informed medical decisions. -: Patient is a 71 year old, F admitted on 08/30/17. 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 She was evaluated for same by psychiatric Dr. Borges on 08/15/17. She lives alone at home , and she has had repeated falls that have led to hospitalizations. The patient states the medical team is considering NPH or Parkinson's to explain her unsteady gait. She expressed frustration about lack of control in the current situation. She reports ambulating with either cane, walking stick or walker at home. She has history of depression and she is prescribed Citalopram 40 mg by her primary care provider, Dr. Saavedra, with reported good control of her symptoms. She denies history of psychiatric hospitalization, outpatient psychiatric care, previous suicide attempt or passive wish. She denies manic or psychotic or anxiety symptoms. She denies substance abuse. Bother parents are , mother of complication of Alzheimer's disease. She was never , has no children. She has a brother who is 18-month younger, lives in [place], [place] and is her healthcare proxy. She drives a car. She visits friends in [place] as often as possible. She likes music and the outdoors. She has friends locally. Past Medical History: PAST MEDICAL HISTORY: 1. Question of Parkinson's disease. 2. Uncontrolled diabetes. 3. Sinus tachycardia and uncontrolled hypertension. 4. History of hypertension. 5. Constipation. 6. Hypothyroidism. Lab Results: Laboratory Tests 08/31/17 08/31/17 08/31/17 08:01 11:39 18:19 WBC RBC Hgb Hct MCV MCH MCHC RDW Plt Count MPV Neut % (Auto) Lymph % (Auto) Winkler % (Auto) Eos % (Auto) Baso % (Auto) Absolute Neuts (auto) Absolute Lymphs (auto) Absolute Monos (auto) Absolute Eos (auto) Absolute Basos (auto) Absolute Nucleated RBC Nucleated RBC % Sodium Potassium Chloride Carbon Dioxide Anion Gap BUN Creatinine Est GFR ( Amer) Est GFR (Non-Af Amer) BUN/Creatinine Ratio Glucose POC Glucose (mg/dL) 229 H 270 H 196 H Calcium 09/01/17 09/01/17 09/01/17 07:25 11:41 16:35 WBC RBC Hgb Hct MCV MCH MCHC RDW Plt Count MPV Neut % (Auto) Lymph % (Auto) Winkler % (Auto) Eos % (Auto) Baso % (Auto) Absolute Neuts (auto) Absolute Lymphs (auto) Absolute Monos (auto) Absolute Eos (auto) Absolute Basos (auto) Absolute Nucleated RBC Nucleated RBC % Sodium Potassium Chloride Carbon Dioxide Anion Gap BUN Creatinine Est GFR ( Amer) Est GFR (Non-Af Amer) BUN/Creatinine Ratio Glucose POC Glucose (mg/dL) 180 H 175 H 74 Calcium 09/02/17 09/02/17 09/02/17 07:47 08:46 08:46 WBC 7.8 RBC 3.65 L Hgb 10.5 L Hct 31 L MCV 84 MCH 29 MCHC 34 RDW 16 H Plt Count 226 MPV 8 Neut % (Auto) 64.1 Lymph % (Auto) 23.9 L Winkler % (Auto) 8.1 Eos % (Auto) 3.1 Baso % (Auto) 0.8 Absolute Neuts (auto) 5.0 Absolute Lymphs (auto) 1.9 Absolute Monos (auto) 0.6 Absolute Eos (auto) 0.2 Absolute Basos (auto) 0.1 Absolute Nucleated RBC 0 Nucleated RBC % 0 Sodium 133 Potassium 3.8 Chloride 100 L Carbon Dioxide 26 Anion Gap 7 BUN 15 Creatinine 0.72 Est GFR ( Amer) 103.3 Est GFR (Non-Af Amer) 80.3 BUN/Creatinine Ratio 20.8 H Glucose 106 H POC Glucose (mg/dL) 114 H Calcium 9.2 09/02/1718 09/03/17 11:44 16:43 07:52 WBC RBC Hgb Hct MCV MCH MCHC RDW Plt Count MPV Neut % (Auto) Lymph % (Auto) Winkler % (Auto) Eos % (Auto) Baso % (Auto) Absolute Neuts (auto) Absolute Lymphs (auto) Absolute Monos (auto) Absolute Eos (auto) Absolute Basos (auto) Absolute Nucleated RBC Nucleated RBC % Sodium Potassium Chloride Carbon Dioxide Anion Gap BUN Creatinine Est GFR ( Amer) Est GFR (Non-Af Amer) BUN/Creatinine Ratio Glucose POC Glucose (mg/dL) 168 H 132 H 151 H Calcium 09/03/17 09/03/17 09/04/17 12:13 17:02 07:56 WBC RBC Hgb Hct MCV MCH MCHC RDW Plt Count MPV Neut % (Auto) Lymph % (Auto) Winkler % (Auto) Eos % (Auto) Baso % (Auto) Absolute Neuts (auto) Absolute Lymphs (auto) Absolute Monos (auto) Absolute Eos (auto) Absolute Basos (auto) Absolute Nucleated RBC Nucleated RBC % Sodium Potassium Chloride Carbon Dioxide Anion Gap BUN Creatinine Est GFR ( Amer) Est GFR (Non-Af Amer) BUN/Creatinine Ratio Glucose POC Glucose (mg/dL) 101 H 145 H 127 H Calcium 09/04/17 11:56 WBC RBC Hgb Hct MCV MCH MCHC RDW Plt Count MPV Neut % (Auto) Lymph % (Auto) Winkler % (Auto) Eos % (Auto) Baso % (Auto) Absolute Neuts (auto) Absolute Lymphs (auto) Absolute Monos (auto) Absolute Eos (auto) Absolute Basos (auto) Absolute Nucleated RBC Nucleated RBC % Sodium Potassium Chloride Carbon Dioxide Anion Gap BUN Creatinine Est GFR ( Amer) Est GFR (Non-Af Amer) BUN/Creatinine Ratio Glucose POC Glucose (mg/dL) 100 Calcium Exam Appearance: Healthy Appearing Hygiene: Normal Grooming: Well Kept Psychomotor Activities: Normal Attitude and Relatedness: Superficially Cooperative Eye Contact: Fair - Speech Quality: Unpressured Latencies: Short Quantity: Appropriate Patient's Decription of Mood: "Okay" Observed Affect: Non-labile Affect Consistent with: Dysphoria Patient's Thought Process: Coherent Thought Content: No Passive Wish, No Suicidal Planning, No Homicidal Ideation, No Paranoid Ideation Experiencing Hallucinations: No, Sensorium is Clear Level of Consciousness: Alert Orientation: Yes Orientated to Time, No Orientated to Place, No Orientated to Person Impulse Control: Intact Insight and Judgement: Fair - Additional Observations Comments: MMSE: 22 (mild) Impression - Impression Clinical Impression: This patient, despite signs of memory impairments and evidence of confabulation , during the interview, shows adequate mental capacity to make informed medical decisions. She was able to explain diagnostic considerations and workup being done. She did not present as thought-disordered or suicidal. Inpatient DSM-IV Dx: Unspecified Neurocognitive Disorder. Merits Inpatient Hospitalization: No Plan - Treatment Plan Treatment Plan: Case discussed with SPRAY PAINTER HELPER, Elena David. I thanked her for the opportunity to consult. 60 min. of clinical time spent on this consult. Continued Medication Management: Continue Outpt Medication Medications: Current Medications Acetaminophen (Tylenol Tab*) 650 mg PO Q4H PRN PRN Reason: FEVER/PAIN Last Admin: 09/02/17 19:47 Dose: 650 mg Al Hydrox/Mg Hydrox/Simethicone (Maalox Plus*) 30 ml PO Q6H PRN PRN Reason: INDIGESTION Carbidopa/Levodopa (Sinemet 25/100 Tab(*)) 1 tab PO TID [facility] Last Admin: 09/04/17 13:52 Dose: 1 tab Citalopram Hydrobromide (Celexa Tab*) 40 mg PO DAILY [facility] Last Admin: 09/04/17 07:56 Dose: 40 mg Darifenacin (Enablex (Nf)) 15 mg PO DAILY [facility] Last Admin: 09/04/17 07:59 Dose: 15 mg Dextrose (D50w Syringe 50 Ml*) 12.5 gm IV PUSH .FOR FS < 60 - SS PRN PRN Reason: FS < 60 Diltiazem HCl (Cardizem Cd Cap*) 360 mg PO BEDTIME [facility] Last Admin: 09/03/17 21:48 Dose: 360 mg Docusate Sodium (Colace Cap*) 100 mg PO BID PRN PRN Reason: CONSTIPATION Glipizide (Glucotrol Tab*) 5 mg PO 0800,1700 [facility] Last Admin: 09/04/17 07:56 Dose: 5 mg Heparin Sodium (Porcine) (Heparin Vial(*)) 5,000 units SUBCUT Q8HR [facility] Last Admin: 09/04/17 13:53 Dose: 5,000 units Insulin Glargine (Lantus(*)) 20 units SUBCUT Q24H [facility] Last Admin: 09/03/17 21:51 Dose: 20 unit Insulin Human Lispro (Humalog*) 0 units SUBCUT AC [facility] PRN Reason: Protocol Last Admin: 09/04/17 13:53 Dose: 3 units Levothyroxine Sodium (Synthroid Tab*) 100 mcg PO DAILY@0600 [facility] Last Admin: 09/04/17 06:12 Dose: 100 mcg Metformin HCl (Glucophage*) 1,000 mg PO 0800,1700 [facility] Last Admin: 09/04/17 07:56 Dose: 1,000 mg Nystatin (Nystatin Top Powder*) 1 applic TOPICAL TID [facility] Last Admin: 09/04/17 08:01 Dose: Not Given Ondansetron HCl (Zofran Inj*) 4 mg IV Q4H PRN PRN Reason: NAUSEA/VOMITING Ramipril (Altace Cap*) 5 mg PO DAILY [facility] Last Admin: 09/04/17 07:56 Dose: 5 mg Senna (Senokot Tab*) 1 tab PO BID PRN PRN Reason: CONSTIPATION - Discharge Plan Discharge Plan: Outpatient Follow Up Outpatient Program: [facility]
[2017-09-04] MEDS: Diltiazem CD CAP* 180 MG PO SCH (21:49)
[2017-09-04] MEDS: Insulin GLARGINE(*) 1 UNITS UNIT SUBCUT SCH (21:49)
--- NOTE | 2017-09-04 22:54 | CONS ---
NEUROLOGY CONSULTATION: DATE OF CONSULT: 09/04/17 REFERRING PROVIDER: Elena David NP CHIEF COMPLAINT: Difficulty walking. HISTORY OF PRESENT ILLNESS: Guillermo Mustafa was seen by myself a month ago in July when she fell in her home and was unable to get up for days. She had a history of parkinsonism and was evaluated at a neurologist someone at [facility] that she could not recall the name of and had no records of. Question of normal pressure hydrocephalus versus Parkinson's disease was raised. She had been having difficulty walking for about 2 years according to her friend, Rupali, who was here at that time. She did not have problems with tremor but she had a shuffling gait and also questionable problems with urinary dyscontrol and cognitive decline. I put her on Sinemet 25/100 one t.i.d. and signed out to Dr. Jose Alfredo Beatty, who followed her. She had an improvement in her ability to ambulate and was ultimately discharged to physical medicine rehab unit. On the physical medicine rehab unit, she continued to have difficulty walking but made some gains. She signed out AMA after psychiatric consultation deemed that she was competent to make that decision. She fell again at home after being home for just a few days. She apparently was on the ground for a couple of days until she was found and brought in. She said she does not recall Sinemet helping her ambulation. She denies tremor. She currently denies bladder problems. There is no history of head trauma, subarachnoid hemorrhage, or meningitis. She denies visual problems or problem swallowing. She says she has no problems walking except that she "stutters steps." CURRENT MEDICATIONS: Consist of: 1. Levothyroxine 100 mcg p.o. q. day. 2. Insulin sliding scale. 3. Glucophage 1000 mg p.o. b.i.d. 4. Zofran 4 mg IV q.4 hours p.r.n. nausea. 5. Ramipril 5 mg q. day. 6. Sinemet 25/100 one p.o. t.i.d. 7. Celexa 40 mg p.o. q. day. 8. Enablex 15 mg p.o. q. day. REVIEW OF SYSTEMS: Negative for belly pain, shortness of breath, or chest pain. She has lost 40 pounds in the last month or so. She denies problems with bowel control. No headaches or change in vision. She thinks her memory is fine. PHYSICAL EXAM: She is morbidly obese. Temperature 98.4 orally, blood pressure 156/81, heart rate 81 and regular, respirations 16. Oxygen saturation is 93% on room air. Heart is in a regular rate and rhythm without murmurs. Carotid pulses are not felt and there are no bruits. Oral mucosa is moist and atraumatic. Neurological Exam: Facial musculature is symmetric with hypomimia. Palate and tongue appear normal and there is no dysarthria or hypophonia. Tongue protrudes in the midline. Eye movements are normal and visual neal are full to confrontation. Hearing is intact bilaterally. Motor exam reveals no rigidity. She has mild hip flexor weakness bilaterally. There is no tremor. Finger taps are normal in the hands. Reflexes are trace in the biceps and otherwise absent. Plantars are flexor bilaterally. She has at least grade 4 strength in the legs proximally and distally other than the mild hip flexor weakness. There is no cogwheeling in upper or lower extremities. I did not attempt to ambulate her. She is alert and oriented to person, place, and time. She recalls meeting me, recalls followed by Dr. Beatty. Language is fluent. DIAGNOSTIC STUDIES/LAB DATA: Includes repeat brain CT on 08/30/17 again showing atrophy with large ventricles. CBC today notable for hemoglobin at 10.5, which is a drop; otherwise, unremarkable CBC. Chemistries consist of fingerstick glucoses generally running between 100 to 130. Urinalysis on 08/30/17 negative other than 3+ protein and 1+ glucose. IMPRESSION AND PLAN: Impression is that of parkinsonism in terms of her gait. It is not clear if she responds to Sinemet, but she clearly does not ambulate safely or at least adequately enough to live independently at this point. I would recommend increasing Sinemet to 2 tablets 3 times per day. If she does not show a benefit, I would recommend a high volume lumbar puncture with pre and post gait testing. I will follow her along with you. [id number]/[facility] #: [id number] JOSE
[2017-09-05] MEDS: Heparin VIAL(*) 5000 UNITS/ML VIAL (FIVE THOUSAND) SUBCUT SCH ×3 (05:55→22:42)
[2017-09-05] MEDS: Levothyroxine TAB* 100 MCG TAB PO SCH (05:55)
--- NOTE | 2017-09-05 08:32 | PN ---
Subjective Date of Service: 09/05/17 Interval History: Ms. Mustafa states that she is feeling better today. She ambulated 120 feet with physical therapy and is smiling while talking with a friend. She denies chest pain, SOB, nausea, or abdominal pain. Family History: Unchanged from Admission Social History: Unchanged from Admission Past Medical History: Unchanged from Admission Objective Active Medications: Acetaminophen (Tylenol Tab*) 650 mg PO Q4H PRN Al Hydrox/Mg Hydrox/Simethicone (Maalox Plus*) 30 ml PO Q6H PRN Carbidopa/Levodopa (Sinemet 25/100 Tab(*)) 2 tab PO TID [facility] Citalopram Hydrobromide (Celexa Tab*) 40 mg PO DAILY [facility] Darifenacin (Enablex (Nf)) 15 mg PO DAILY [facility] Dextrose (D50w Syringe 50 Ml*) 12.5 gm IV PUSH .FOR FS < 60 - SS PRN Diltiazem HCl (Cardizem Cd Cap*) 360 mg PO BEDTIME [facility] Docusate Sodium (Colace Cap*) 100 mg PO BID PRN Glipizide (Glucotrol Tab*) 5 mg PO 0800,1700 [facility] Heparin Sodium (Porcine) (Heparin Vial(*)) 5,000 units SUBCUT Q8HR [facility] Insulin Glargine (Lantus(*)) 20 units SUBCUT Q24H [facility] Insulin Human Lispro (Humalog*) 0 units SUBCUT AC [facility] Levothyroxine Sodium (Synthroid Tab*) 100 mcg PO DAILY@0600 [facility] Metformin HCl (Glucophage*) 1,000 mg PO 0800,1700 [facility] Nystatin (Nystatin Top Powder*) 1 applic TOPICAL TID [facility] Ondansetron HCl (Zofran Inj*) 4 mg IV Q4H PRN Ramipril (Altace Cap*) 5 mg PO DAILY [facility] Senna (Senokot Tab*) 1 tab PO BID PRN Vital Signs: Temp Pulse Resp BP Pulse Ox 97.9 F 76 16 154/67 96 09/05/17 08:06 09/05/17 08:06 09/05/17 08:06 09/05/17 08:06 09/05/17 08:06 Oxygen Devices in Use Now: None Appearance: Female sitting up in chair in NAD Eyes: No Scleral Icterus Ears/Nose/Mouth/Throat: Mucous Membranes Moist Neck: Trachea Midline Respiratory: Symmetrical Chest Expansion and Respiratory Effort, Clear to Auscultation Cardiovascular: NL Sounds; No Murmurs; No JVD, No Edema Abdominal: NL Sounds; No Tenderness; No Distention Lymphatic: No Cervical Adenopathy Extremities: No Edema Skin: No Rash or Ulcers Neurological: Alert and Oriented x 3, NL Muscle Strength and Tone Nutrition: Taking PO's Result Diagrams: 09/02/17 08:46 09/02/17 08:46 Additional Lab and Data: . Assess/Plan/Problems-Billing Assessment: Ms. Mustafa is a 71 yo female with a PMH of presumed Parkinson's who was re- admitted on 08/30/17 with a repeat fall. - Patient Problems (1) Falls Current Visit: No Comment: - Suspect related to parkinson's, morbid obesity, and some mild short term memory loss. - Appreciate neurology consult. Patient appears much improved on increased dose of sinemet today. - Although patient has had two recent falls with prolonged downtime, patient does not want NH placement and is hopeful to remain at home. Seen by psychiatrist, deemed to have capacity to make medical decisions. - Plan for family meeting on to review options for increased support at home. (2) Parkinsonism Comment: - Increased sinemet to 2 tabs po BID. (3) Normal pressure hydrocephalus Comment: - Likely chronic and not contributing to current presentation. (4) Hypertension Comment: - SBP 120-150s. - Continue ramipril and diltiazem. (5) DM2 (diabetes mellitus, type 2) Comment: - BGs well controlled. - Cont Lantus, metformin and glipizide with lispro SSI coverage for meals. (6) Hypothyroidism Comment: - TSH 1.44. - Continue levothyroxine. (7) Depression Comment: - Continue citalopram. (8) Overactive bladder Comment: - Continue enablex. (9) DVT prophylaxis Comment: - HSQ (10) Full code status Comment: Status and Disposition: Inpatient. Patient has capacity to refused [facility]. [employer] retailer sales consultant following.
[2017-09-05] MEDS: Carbidopa/Levodop 25/100 MG TAB(*) PO SCH ×3 (09:44→22:33)
[2017-09-05] MEDS: Citalopram TAB* 40 MG PO SCH (09:44)
[2017-09-05] MEDS: Ramipril CAP* 5 MG PO SCH (09:44)
[2017-09-05] MEDS: metFORMIN* 1,000 MG TAB PO SCH ×2 (09:44→18:16)
[2017-09-05] MEDS: glipiZIDE TAB* 5 MG PO SCH ×2 (09:44→18:16)
[2017-09-05] MEDS: DARIFENACIN 15 MG PO SCH (09:46)
[2017-09-05] MEDS: Insulin LISPRO* 1 UNITS UNIT SUBCUT SCH ×3 (09:46→18:16)
[2017-09-05] MEDS: Nystatin TOP POWDER* 15 GM BTL TOPICAL SCH ×2 (13:50→22:07)
--- NOTE | 2017-09-05 20:11 | CONS ---
FOLLOW-UP NOTE: DATE OF FOLLOWUP: 09/05/17 LOCATION: She is in inpatient, room 419. HOSPITALIST: Elena David NP CHIEF COMPLAINT: Parkinsonism. INTERVAL HISTORY: Since yesterday, after which we increased her Sinemet to 2 tablets 3 times per day, Guillermo is walking better. I reviewed notes from Physical Therapy. She walked 140 feet with a gait belt. I observed her walking back to the bathroom and her steps are somewhat small, but she is able to basically ambulate independently that short distance with a walker. She denies any problems with nausea. She denies sedation or dizziness. PHYSICAL EXAM: She is obese. Temperature 97.9 temporally, blood pressure 154/ 67, heart rate 76 and regular, respiratory rate 16. Oxygen saturation is 96% on room air. Neurological exam: Facial musculature is symmetric without hypomimia. Eye movements are full. Speech is clear without dysarthria or hypophonia. Motor exam reveals normal tone in the limbs. She has a mild hip flexor weakness bilaterally. There is no rest tremor. Finger taps are normal in the hands. Gait is mildly festinating with a walker. She ambulates independently. IMPRESSION AND PLAN: Guillermo apparently is moving better with increasing her dose of levodopa. She seems to be tolerating it without nausea or lightheadedness. I defer on lumbar puncture at this point as she is seemingly once again to respond to levodopa-carbidopa. I doubt she has idiopathic Parkinson's disease, but she does seem to respond to medication and the whole concept of normal pressure hydrocephalus has been called into question recent years. Again, I would proceed with her current medical therapy and discharge planning. [id number]/[facility] #: [id number] JOSE
[2017-09-05] MEDS: Diltiazem CD CAP* 180 MG PO SCH (22:33)
[2017-09-05] MEDS: Insulin GLARGINE(*) 1 UNITS UNIT SUBCUT SCH (22:34)
[2017-09-06] MEDS: Levothyroxine TAB* 100 MCG TAB PO SCH (05:40)
[2017-09-06] MEDS: Insulin LISPRO* 1 UNITS UNIT SUBCUT SCH ×3 (09:29→18:19)
[2017-09-06] MEDS: metFORMIN* 1,000 MG TAB PO SCH ×2 (09:30→18:21)
[2017-09-06] MEDS: DARIFENACIN 15 MG PO SCH (09:30)
[2017-09-06] MEDS: Citalopram TAB* 40 MG PO SCH (09:30)
[2017-09-06] MEDS: Ramipril CAP* 5 MG PO SCH (09:30)
[2017-09-06] MEDS: Carbidopa/Levodop 25/100 MG TAB(*) PO SCH ×3 (09:30→21:06)
[2017-09-06] MEDS: glipiZIDE TAB* 5 MG PO SCH ×2 (09:30→17:36)
[2017-09-06] MEDS: Nystatin TOP POWDER* 15 GM BTL TOPICAL SCH ×3 (09:33→21:13)
--- NOTE | 2017-09-06 17:20 | PN ---
Subjective Date of Service: 09/06/17 Interval History: Patient has no complaints today. Able to ambulate without difficulty. No dizziness, unsteadiness, changes in vision, headache reported. Patient denies tremor at baseline but has slight high frequency tremor in right hand greater than left. Patient denies F/C, N/V, abdominal pain, dysuria, diarrhea, constipation, or other abnormality. Family History: Unchanged from Admission Social History: Unchanged from Admission Past Medical History: Unchanged from Admission Objective Active Medications: Acetaminophen (Tylenol Tab*) 650 mg PO Q4H PRN PRN Reason: FEVER/PAIN Last Admin: 09/02/17 19:47 Dose: 650 mg Al Hydrox/Mg Hydrox/Simethicone (Maalox Plus*) 30 ml PO Q6H PRN PRN Reason: INDIGESTION Carbidopa/Levodopa (Sinemet 25/100 Tab(*)) 2 tab PO TID [facility] Last Admin: 09/06/17 13:28 Dose: 2 tab Citalopram Hydrobromide (Celexa Tab*) 40 mg PO DAILY [facility] Last Admin: 09/06/17 09:30 Dose: 40 mg Darifenacin (Enablex (Nf)) 15 mg PO DAILY [facility] Last Admin: 09/06/17 09:30 Dose: 15 mg Dextrose (D50w Syringe 50 Ml*) 12.5 gm IV PUSH .FOR FS < 60 - SS PRN PRN Reason: FS < 60 Diltiazem HCl (Cardizem Cd Cap*) 360 mg PO BEDTIME [facility] Last Admin: 09/05/17 22:33 Dose: 360 mg Docusate Sodium (Colace Cap*) 100 mg PO BID PRN PRN Reason: CONSTIPATION Glipizide (Glucotrol Tab*) 5 mg PO 0800,1700 [facility] Last Admin: 09/06/17 09:30 Dose: 5 mg Insulin Glargine (Lantus(*)) 20 units SUBCUT Q24H [facility] Last Admin: 09/05/17 22:34 Dose: 20 unit Insulin Human Lispro (Humalog*) 0 units SUBCUT AC [facility] PRN Reason: Protocol Last Admin: 09/06/17 13:27 Dose: 5 units Levothyroxine Sodium (Synthroid Tab*) 100 mcg PO DAILY@0600 [facility] Last Admin: 09/06/17 05:40 Dose: 100 mcg Metformin HCl (Glucophage*) 1,000 mg PO 0800,1700 [facility] Last Admin: 09/06/17 09:30 Dose: 1,000 mg Nystatin (Nystatin Top Powder*) 1 applic TOPICAL TID [facility] Last Admin: 09/06/17 13:29 Dose: 1 applic Ondansetron HCl (Zofran Inj*) 4 mg IV Q4H PRN PRN Reason: NAUSEA/VOMITING Ramipril (Altace Cap*) 5 mg PO DAILY [facility] Last Admin: 09/06/17 09:30 Dose: 5 mg Senna (Senokot Tab*) 1 tab PO BID PRN PRN Reason: CONSTIPATION Vital Signs - 8 hr 09/06/17 09/06/17 15:48 16:25 Temperature 99.0 F Pulse Rate 77 Respiratory 16 Rate Blood Pressure 141/61 (mmHg) O2 Sat by Pulse 95 95 Oximetry Oxygen Devices in Use Now: None Appearance: Patient is a 71yo female with flat affect who is sitting in the chair in [facility]. Eyes: No Scleral Icterus, PERRLA Ears/Nose/Mouth/Throat: NL Teeth, Lips, Gums, Clear Oropharnyx, Mucous Membranes Moist Neck: NL Appearance and Movements; NL JVP, Trachea Midline Respiratory: Symmetrical Chest Expansion and Respiratory Effort, Clear to Auscultation Cardiovascular: RRR, No Edema, - - Grade 1/6 DMITRY at RUSB. Abdominal: No Hepatosplenomegaly, - - Sight tenderness over RUQ. Patient states it feels superficial. Lymphatic: No Cervical Adenopathy Extremities: No Edema, No Clubbing, Cyanosis Skin: No Rash or Ulcers, No Nodules or Sclerosis Neurological: Alert and Oriented x 3, NL Sensation, NL Muscle Strength and Tone , - - CN II-XII intact. Reflexes unremarkable. Slight 6-10hz tremor in RUE Result Diagrams: 09/02/17 08:46 09/02/17 08:46 Additional Lab and Data: . Assess/Plan/Problems-Billing Assessment: Ms. Mustafa is a 71 yo female with a PMH of presumed Parkinson's who was re- admitted on 08/30/17 with a repeat fall. - Patient Problems (1) Falls Current Visit: No Status: Acute Code(s): A01.4 - PARATYPHOID FEVER, UNSPECIFIED Comment: Suspect related to parkinsonism, morbid obesity, and some mild short term memory loss. Appreciate neurology consult. Patient appears much improved on increased dose of sinemet. Although patient has had two recent falls with prolonged downtime, patient does not want NH placement and is hopeful to remain at home. Seen by psychiatrist, deemed to have capacity to make medical decisions. Plan for family meeting on to review options for increased support at home. (2) Parkinsonism Current Visit: No Status: Acute Code(s): G20 - PARKINSON'S DISEASE SNOMED Code(s): 68075044 Comment: Increased sinemet to 2 tabs po BID. (3) Depression Current Visit: Yes Status: Acute Code(s): F32.9 - MAJOR DEPRESSIVE DISORDER , SINGLE EPISODE, UNSPECIFIED SNOMED Code(s): 19502448 Comment: Continue citalopram. (4) DM2 (diabetes mellitus, type 2) Current Visit: No Status: Acute Comment: BGs well controlled. Cont Lantus, metformin and glipizide with lispro SSI coverage for meals. (5) Hypertension Current Visit: No Status: Acute Code(s): I10 - ESSENTIAL (PRIMARY) HYPERTENSION SNOMED Code(s): 28305444 Comment: SBP elevated overnight to the 170s. Continue ramipril and diltiazem. (6) Hypothyroidism Current Visit: No Status: Acute Code(s): E03.9 - HYPOTHYROIDISM, UNSPECIFIED SNOMED Code(s): 23823406 Comment: TSH 1.44. Continue levothyroxine. (7) Normal pressure hydrocephalus Current Visit: No Status: Acute Code(s): G91.2 - (IDIOPATHIC) NORMAL PRESSURE HYDROCEPHALUS SNOMED Code(s): 77712926 Comment: Large ventricles on CT scan. Likely chronic and not contributing to current presentation. No intervention recommended at this time. (8) Overactive bladder Current Visit: No Status: Acute Code(s): N32.81 - OVERACTIVE BLADDER SNOMED Code(s): 545581089 Comment: Continue enablex. (9) Full code status Current Visit: Yes Status: Acute Code(s): Z78.9 - OTHER SPECIFIED HEALTH STATUS SNOMED Code(s): 162398577 Comment: (10) DVT prophylaxis Current Visit: No Status: Acute Code(s): TEQ4674 - SNOMED Code(s): 166263966 Comment: - HSQ Status and Disposition: Inpatient. Patient has capacity to refused HANNAH. loading machine adjuster following.
[2017-09-06] MEDS: Diltiazem CD CAP* 180 MG PO SCH (21:06)
[2017-09-06] MEDS: Insulin GLARGINE(*) 1 UNITS UNIT SUBCUT SCH (22:40)
[2017-09-07] MEDS: Levothyroxine TAB* 100 MCG TAB PO SCH (05:35)
[2017-09-07 07:37] LABS: ABS Basophils 0.1 10^3/ul (0-0.2); ABS Eosinophils 0.4 10^3/ul (0-0.6); ABS Lymphocytes 1.8 10^3/ul (1.0-4.8); ABS Monocytes 0.6 10^3/ul (0-0.8); ABS Neutrophils 4.9 10^3/ul (1.5-7.7); ABS Nucleated RBC 0 10^3/ul; Eosinophil % 4.6 % (0-6); Hematocrit 33 % (35-47); Hemoglobin 10.9 g/dl (12.0-16.0); Lymphocyte % 23.4 % (25-47); Mean Corpuscular HGB Conc 33 g/dl (31-36); Mean Corpuscular Hemoglobin 29 pg (27-31); Mean Corpuscular Volume 86 fL (80-97); Mean Platelet Volume 9 um3 (7.4-10.4); Nucleated Red Blood Cells % 0; Platelet Count 284 10^3/ul (150-450); Red Blood Count 3.82 10^6/ul (4.0-5.4); Red Cell Distribution Width 16 % (10.5-15); White Blood Count 7.7 10^3/ul (3.5-10.8)
[2017-09-07 07:50] LABS: EGFR Non-African American 73.2 (>60)
[2017-09-07] MEDS: Citalopram TAB* 40 MG PO SCH (09:23)
[2017-09-07] MEDS: metFORMIN* 1,000 MG TAB PO SCH ×2 (09:23→17:57)
[2017-09-07] MEDS: Ramipril CAP* 5 MG PO SCH (09:23)
[2017-09-07] MEDS: Carbidopa/Levodop 25/100 MG TAB(*) PO SCH ×3 (09:23→21:10)
[2017-09-07] MEDS: glipiZIDE TAB* 5 MG PO SCH ×2 (09:24→17:57)
[2017-09-07] MEDS: DARIFENACIN 15 MG PO SCH (09:24)
[2017-09-07] MEDS: Nystatin TOP POWDER* 15 GM BTL TOPICAL SCH ×3 (09:26→21:29)
[2017-09-07] MEDS: Insulin LISPRO* 1 UNITS UNIT SUBCUT SCH ×3 (09:26→17:57)
--- NOTE | 2017-09-07 13:42 | PN ---
Subjective Date of Service: 09/07/17 Interval History: Patient has no complaints today. Denies F/C, N/V, abdominal pain, diarrhea, constipation, dizziness, palpitations, weakness, presyncope, CP, SOB or other pain. Planned family meeting postponed due to brother being delayed in [place]. Will not be in until Monday. Patient in a much better mood with increased variability in affect this morning. Family History: Unchanged from Admission Social History: Unchanged from Admission Past Medical History: Unchanged from Admission Objective Active Medications: Acetaminophen (Tylenol Tab*) 650 mg PO Q4H PRN PRN Reason: FEVER/PAIN Last Admin: 09/02/17 19:47 Dose: 650 mg Al Hydrox/Mg Hydrox/Simethicone (Maalox Plus*) 30 ml PO Q6H PRN PRN Reason: INDIGESTION Carbidopa/Levodopa (Sinemet 25/100 Tab(*)) 2 tab PO TID [facility] Last Admin: 09/07/17 13:11 Dose: 2 tab Citalopram Hydrobromide (Celexa Tab*) 40 mg PO DAILY [facility] Last Admin: 09/07/17 09:23 Dose: 40 mg Darifenacin (Enablex (Nf)) 15 mg PO DAILY [facility] Last Admin: 09/07/17 09:24 Dose: 15 mg Dextrose (D50w Syringe 50 Ml*) 12.5 gm IV PUSH .FOR FS < 60 - SS PRN PRN Reason: FS < 60 Diltiazem HCl (Cardizem Cd Cap*) 360 mg PO BEDTIME [facility] Last Admin: 09/06/17 21:06 Dose: 360 mg Docusate Sodium (Colace Cap*) 100 mg PO BID PRN PRN Reason: CONSTIPATION Glipizide (Glucotrol Tab*) 5 mg PO 0800,1700 [facility] Last Admin: 09/07/17 09:24 Dose: 5 mg Insulin Glargine (Lantus(*)) 20 units SUBCUT Q24H [facility] Last Admin: 09/06/17 22:40 Dose: 20 unit Insulin Human Lispro (Humalog*) 0 units SUBCUT AC [facility] PRN Reason: Protocol Last Admin: 09/07/17 13:11 Dose: 3 units Levothyroxine Sodium (Synthroid Tab*) 100 mcg PO DAILY@0600 [facility] Last Admin: 09/07/17 05:35 Dose: 100 mcg Metformin HCl (Glucophage*) 1,000 mg PO 0800,1700 [facility] Last Admin: 09/07/17 09:23 Dose: 1,000 mg Nystatin (Nystatin Top Powder*) 1 applic TOPICAL TID [facility] Last Admin: 09/07/17 09:26 Dose: 1 applic Ondansetron HCl (Zofran Inj*) 4 mg IV Q4H PRN PRN Reason: NAUSEA/VOMITING Ramipril (Altace Cap*) 5 mg PO DAILY [facility] Last Admin: 09/07/17 09:23 Dose: 5 mg Senna (Senokot Tab*) 1 tab PO BID PRN PRN Reason: CONSTIPATION Vital Signs - 8 hr 09/07/17 09/07/17 09/07/17 07:26 07:52 11:05 Temperature 97.7 F 97.2 F Pulse Rate 74 90 Respiratory 14 16 17 Rate Blood Pressure 121/60 134/49 (mmHg) O2 Sat by Pulse 95 95 97 Oximetry Oxygen Devices in Use Now: None Appearance: Patient is a 71yo female who appears stated age and is sitting in the bed in [facility]. Eyes: No Scleral Icterus, PERRLA Ears/Nose/Mouth/Throat: NL Teeth, Lips, Gums, Clear Oropharnyx, Mucous Membranes Moist Neck: NL Appearance and Movements; NL JVP, Trachea Midline Respiratory: Symmetrical Chest Expansion and Respiratory Effort, Clear to Auscultation Cardiovascular: NL Sounds; No Murmurs; No JVD, RRR, - - Trace Edema. Abdominal: NL Sounds; No Tenderness; No Distention, No Hepatosplenomegaly Lymphatic: No Cervical Adenopathy Extremities: No Clubbing, Cyanosis Skin: No Rash or Ulcers, No Nodules or Sclerosis Neurological: Alert and Oriented x 3, NL Sensation, NL Muscle Strength and Tone , - - CN II-XII intact. Slight tremor in left hand. Result Diagrams: 09/07/17 07:06 09/07/17 07:06 Additional Lab and Data: . Assess/Plan/Problems-Billing Assessment: Ms. Mustafa is a 71 yo female with a PMH of presumed Parkinson's who was re- admitted on 08/30/17 with a repeat fall. - Patient Problems (1) Falls Current Visit: No Status: Acute Code(s): A01.4 - PARATYPHOID FEVER, UNSPECIFIED Comment: Suspect related to parkinsonism, morbid obesity, and some mild short term memory loss. Appreciate neurology consult. Patient appears much improved on increased dose of sinemet. Although patient has had two recent falls with prolonged downtime, patient does not want NH placement and is hopeful to remain at home. Seen by psychiatrist, deemed to have capacity to make medical decisions. Family meeting postponed due to brother not being available. Unable to have support at home until Monday. Plan for D/C then due to not being safe to go home alone. (2) Parkinsonism Current Visit: No Status: Acute Code(s): G20 - PARKINSON'S DISEASE SNOMED Code(s): 71690858 Comment: Increased sinemet to 2 tabs po TID. (3) Depression Current Visit: Yes Status: Acute Code(s): F32.9 - MAJOR DEPRESSIVE DISORDER , SINGLE EPISODE, UNSPECIFIED SNOMED Code(s): 55535512 Comment: Continue citalopram. (4) DM2 (diabetes mellitus, type 2) Current Visit: No Status: Acute Comment: BGs well controlled. Cont Lantus, metformin and glipizide with lispro SSI coverage for meals. Lantus held this AM due to Hypoglycemia (5) Hypertension Current Visit: No Status: Acute Code(s): I10 - ESSENTIAL (PRIMARY) HYPERTENSION SNOMED Code(s): 09913510 Comment: Normotensive. Continue ramipril and diltiazem. (6) Hypothyroidism Current Visit: No Status: Acute Code(s): E03.9 - HYPOTHYROIDISM, UNSPECIFIED SNOMED Code(s): 78069446 Comment: TSH 1.44. Continue levothyroxine. (7) Normal pressure hydrocephalus Current Visit: No Status: Acute Code(s): G91.2 - (IDIOPATHIC) NORMAL PRESSURE HYDROCEPHALUS SNOMED Code(s): 88973871 Comment: Large ventricles on CT scan. Likely chronic and not contributing to current presentation. No intervention recommended at this time. (8) Overactive bladder Current Visit: No Status: Acute Code(s): N32.81 - OVERACTIVE BLADDER SNOMED Code(s): 928364661 Comment: Continue enablex. (9) Full code status Current Visit: Yes Status: Acute Code(s): Z78.9 - OTHER SPECIFIED HEALTH STATUS SNOMED Code(s): 449171371 Comment: (10) DVT prophylaxis Current Visit: No Status: Acute Code(s): DRS8103 - SNOMED Code(s): 543075467 Comment: - HSQ Status and Disposition: Inpatient. Patient has capacity to refused HANNAH. blueprint processor following. Plan for D/C on Monday Morning.
[2017-09-07] MEDS ORDERED: Magnesium Sulfate 2 GM IV* 2 GM/50 ML BAG IVPB ONE (17:18)
[2017-09-07] MEDS: Insulin GLARGINE(*) 1 UNITS UNIT SUBCUT SCH (21:11)
[2017-09-07] MEDS: Diltiazem CD CAP* 180 MG PO SCH (21:11)
[2017-09-08] MEDS: Levothyroxine TAB* 100 MCG TAB PO SCH (05:36)
[2017-09-08] MEDS: metFORMIN* 1,000 MG TAB PO SCH ×2 (09:10→17:55)
[2017-09-08] MEDS: DARIFENACIN 15 MG PO SCH (09:10)
[2017-09-08] MEDS: Citalopram TAB* 40 MG PO SCH (09:10)
[2017-09-08] MEDS: Carbidopa/Levodop 25/100 MG TAB(*) PO SCH ×3 (09:10→21:24)
[2017-09-08] MEDS: glipiZIDE TAB* 5 MG PO SCH ×2 (09:10→17:55)
[2017-09-08] MEDS: Ramipril CAP* 5 MG PO SCH (09:10)
[2017-09-08] MEDS: Insulin LISPRO* 1 UNITS UNIT SUBCUT SCH ×3 (09:11→17:54)
[2017-09-08] MEDS: Nystatin TOP POWDER* 15 GM BTL TOPICAL SCH ×3 (09:12→23:03)
--- NOTE | 2017-09-08 18:53 | PN ---
Subjective Date of Service: 09/08/17 Interval History: Patient has no complaints today except that she occasionally gets disequilibrated when she lays down for a couple seconds. No dizziness on standing, CP, SOB, diarrhea, constipation, Abdominal pain, dysuria, F/C, N/V or other pain. Disoriented to date but otherwise oriented, communicative, and pleasant. Family History: Unchanged from Admission Social History: Unchanged from Admission Past Medical History: Unchanged from Admission Objective Active Medications: Acetaminophen (Tylenol Tab*) 650 mg PO Q4H PRN PRN Reason: FEVER/PAIN Last Admin: 09/02/17 19:47 Dose: 650 mg Al Hydrox/Mg Hydrox/Simethicone (Maalox Plus*) 30 ml PO Q6H PRN PRN Reason: INDIGESTION Carbidopa/Levodopa (Sinemet 25/100 Tab(*)) 2 tab PO TID [facility] Last Admin: 09/08/17 13:07 Dose: 2 tab Citalopram Hydrobromide (Celexa Tab*) 40 mg PO DAILY [facility] Last Admin: 09/08/17 09:10 Dose: 40 mg Darifenacin (Enablex (Nf)) 15 mg PO DAILY [facility] Last Admin: 09/08/17 09:10 Dose: 15 mg Dextrose (D50w Syringe 50 Ml*) 12.5 gm IV PUSH .FOR FS < 60 - SS PRN PRN Reason: FS < 60 Diltiazem HCl (Cardizem Cd Cap*) 360 mg PO BEDTIME [facility] Last Admin: 09/07/17 21:11 Dose: 360 mg Docusate Sodium (Colace Cap*) 100 mg PO BID PRN PRN Reason: CONSTIPATION Glipizide (Glucotrol Tab*) 5 mg PO 0800,1700 [facility] Last Admin: 09/08/17 17:55 Dose: 5 mg Insulin Glargine (Lantus(*)) 15 units SUBCUT Q24H [facility] Last Admin: 09/07/17 21:11 Dose: 15 units Insulin Human Lispro (Humalog*) 0 units SUBCUT AC [facility] PRN Reason: Protocol Last Admin: 09/08/17 17:54 Dose: 3 units Levothyroxine Sodium (Synthroid Tab*) 100 mcg PO DAILY@0600 [facility] Last Admin: 09/08/17 05:36 Dose: 100 mcg Metformin HCl (Glucophage*) 1,000 mg PO 0800,1700 [facility] Last Admin: 09/08/17 17:55 Dose: 1,000 mg Nystatin (Nystatin Top Powder*) 1 applic TOPICAL TID [facility] Last Admin: 09/08/17 13:07 Dose: 1 applic Ondansetron HCl (Zofran Inj*) 4 mg IV Q4H PRN PRN Reason: NAUSEA/VOMITING Ramipril (Altace Cap*) 5 mg PO DAILY [facility] Last Admin: 09/08/17 09:10 Dose: 5 mg Senna (Senokot Tab*) 1 tab PO BID PRN PRN Reason: CONSTIPATION Vital Signs - 8 hr 09/08/17 09/08/17 11:24 16:38 Temperature 97.9 F 97.2 F Pulse Rate 83 84 Respiratory 16 18 Rate Blood Pressure 132/62 126/61 (mmHg) O2 Sat by Pulse 93 96 Oximetry Oxygen Devices in Use Now: None Appearance: Patient is a 71yo female with a flat affect sitting in the chair in [facility]. Eyes: No Scleral Icterus, PERRLA Ears/Nose/Mouth/Throat: NL Teeth, Lips, Gums, Clear Oropharnyx, Mucous Membranes Moist Neck: NL Appearance and Movements; NL JVP, Trachea Midline Respiratory: Symmetrical Chest Expansion and Respiratory Effort, Clear to Auscultation Cardiovascular: RRR, No Edema, - - Grade 2/6 DMITRY heard best in RUSB. Abdominal: NL Sounds; No Tenderness; No Distention, No Hepatosplenomegaly Lymphatic: No Cervical Adenopathy Extremities: No Edema, No Clubbing, Cyanosis Skin: No Rash or Ulcers, No Nodules or Sclerosis Neurological: NL Sensation, NL Muscle Strength and Tone, - - CN II-XII intact. Only disoriented to date. Result Diagrams: 09/07/17 07:06 09/07/17 07:06 Additional Lab and Data: . Assess/Plan/Problems-Billing Assessment: Ms. Mustafa is a 71 yo female with a PMH of presumed Parkinson's who was re- admitted on 08/30/17 with a repeat fall. - Patient Problems (1) Falls Current Visit: No Status: Acute Code(s): A01.4 - PARATYPHOID FEVER, UNSPECIFIED Comment: Suspect related to parkinsonism, morbid obesity, and some mild short term memory loss. Appreciate neurology consult. Patient appears much improved on increased dose of sinemet. Although patient has had two recent falls with prolonged downtime, patient does not want NH placement and is hopeful to remain at home. Seen by psychiatrist, deemed to have capacity to make medical decisions. No dizziness on standing, momentary disequilibrium when laying down occasionally. Family meeting postponed due to brother not being available. Unable to have support at home until Monday. Plan for D/C then due to not being safe to go home alone. (2) Parkinsonism Current Visit: No Status: Acute Code(s): G20 - PARKINSON'S DISEASE SNOMED Code(s): 24087314 Comment: Increased sinemet to 2 tabs po TID. (3) Depression Current Visit: Yes Status: Acute Code(s): F32.9 - MAJOR DEPRESSIVE DISORDER , SINGLE EPISODE, UNSPECIFIED SNOMED Code(s): 75507959 Comment: Continue citalopram. (4) DM2 (diabetes mellitus, type 2) Current Visit: No Status: Acute Comment: BGs well controlled. Cont Lantus, metformin and glipizide with lispro SSI coverage for meals. Lantus held this AM due to Hypoglycemia (5) Hypertension Current Visit: No Status: Acute Code(s): I10 - ESSENTIAL (PRIMARY) HYPERTENSION SNOMED Code(s): 85216908 Comment: Normotensive. Continue ramipril and diltiazem. (6) Hypothyroidism Current Visit: No Status: Acute Code(s): E03.9 - HYPOTHYROIDISM, UNSPECIFIED SNOMED Code(s): 95864298 Comment: TSH 1.44. Continue levothyroxine. (7) Normal pressure hydrocephalus Current Visit: No Status: Acute Code(s): G91.2 - (IDIOPATHIC) NORMAL PRESSURE HYDROCEPHALUS SNOMED Code(s): 68619710 Comment: Large ventricles on CT scan. Likely chronic and not contributing to current presentation. No intervention recommended at this time. (8) Overactive bladder Current Visit: No Status: Acute Code(s): N32.81 - OVERACTIVE BLADDER SNOMED Code(s): 658003374 Comment: Continue enablex. (9) Full code status Current Visit: Yes Status: Acute Code(s): Z78.9 - OTHER SPECIFIED HEALTH STATUS SNOMED Code(s): 831302505 Comment: (10) DVT prophylaxis Current Visit: No Status: Acute Code(s): VFZ2354 - SNOMED Code(s): 015709822 Comment: - HSQ Status and Disposition: Inpatient. Patient has capacity to refused HANNAH. internal communications writer following. Plan for D/C on Monday.
[2017-09-08] MEDS: Diltiazem CD CAP* 180 MG PO SCH (21:24)
[2017-09-08] MEDS: Insulin GLARGINE(*) 1 UNITS UNIT SUBCUT SCH (23:04)
[2017-09-09] MEDS: Levothyroxine TAB* 100 MCG TAB PO SCH (05:20)
[2017-09-09] MEDS: DARIFENACIN 15 MG PO SCH (09:01)
[2017-09-09] MEDS: Insulin LISPRO* 1 UNITS UNIT SUBCUT SCH ×3 (09:01→17:54)
[2017-09-09] MEDS: Citalopram TAB* 40 MG PO SCH (09:02)
[2017-09-09] MEDS: Carbidopa/Levodop 25/100 MG TAB(*) PO SCH ×3 (09:02→20:22)
[2017-09-09] MEDS: glipiZIDE TAB* 5 MG PO SCH ×2 (09:02→17:54)
[2017-09-09] MEDS: metFORMIN* 1,000 MG TAB PO SCH ×2 (09:02→17:54)
[2017-09-09] MEDS: Ramipril CAP* 5 MG PO SCH (09:02)
[2017-09-09] MEDS: Nystatin TOP POWDER* 15 GM BTL TOPICAL SCH ×3 (09:03→20:25)
--- NOTE | 2017-09-09 10:19 | PN ---
Subjective Date of Service: 09/09/17 Interval History: Patient seen and examined. No acute overnight events. Patient has no complaints , has not been out of bed yet today. States her gait is about the same as it is at home though. Denies fever, fatigue, chills, headache, SOB, chest pain. Family History: Unchanged from Admission Social History: Unchanged from Admission Past Medical History: Unchanged from Admission Objective Active Medications: Acetaminophen (Tylenol Tab*) 650 mg PO Q4H PRN PRN Reason: FEVER/PAIN Last Admin: 09/02/17 19:47 Dose: 650 mg Al Hydrox/Mg Hydrox/Simethicone (Maalox Plus*) 30 ml PO Q6H PRN PRN Reason: INDIGESTION Carbidopa/Levodopa (Sinemet 25/100 Tab(*)) 2 tab PO TID [facility] Last Admin: 09/09/17 09:02 Dose: 2 tab Citalopram Hydrobromide (Celexa Tab*) 40 mg PO DAILY [facility] Last Admin: 09/09/17 09:02 Dose: 40 mg Darifenacin (Enablex (Nf)) 15 mg PO DAILY [facility] Last Admin: 09/09/17 09:01 Dose: 15 mg Dextrose (D50w Syringe 50 Ml*) 12.5 gm IV PUSH .FOR FS < 60 - SS PRN PRN Reason: FS < 60 Diltiazem HCl (Cardizem Cd Cap*) 360 mg PO BEDTIME [facility] Last Admin: 09/08/17 21:24 Dose: 360 mg Docusate Sodium (Colace Cap*) 100 mg PO BID PRN PRN Reason: CONSTIPATION Glipizide (Glucotrol Tab*) 5 mg PO 0800,1700 [facility] Last Admin: 09/09/17 09:02 Dose: 5 mg Insulin Glargine (Lantus(*)) 15 units SUBCUT Q24H [facility] Last Admin: 09/08/17 23:04 Dose: Not Given Insulin Human Lispro (Humalog*) 0 units SUBCUT AC [facility] PRN Reason: Protocol Last Admin: 09/09/17 09:01 Dose: 2 units Levothyroxine Sodium (Synthroid Tab*) 100 mcg PO DAILY@0600 [facility] Last Admin: 09/09/17 05:20 Dose: 100 mcg Metformin HCl (Glucophage*) 1,000 mg PO 0800,1700 [facility] Last Admin: 09/09/17 09:02 Dose: 1,000 mg Nystatin (Nystatin Top Powder*) 1 applic TOPICAL TID [facility] Last Admin: 09/09/17 09:03 Dose: Not Given Ondansetron HCl (Zofran Inj*) 4 mg IV Q4H PRN PRN Reason: NAUSEA/VOMITING Ramipril (Altace Cap*) 5 mg PO DAILY [facility] Last Admin: 09/09/17 09:02 Dose: 5 mg Senna (Senokot Tab*) 1 tab PO BID PRN PRN Reason: CONSTIPATION Vital Signs - 8 hr 09/09/17 09/09/17 09/09/17 03:34 08:00 08:17 Temperature 98.1 F 98.5 F Pulse Rate 73 77 Respiratory 16 16 16 Rate Blood Pressure 138/66 144/62 (mmHg) O2 Sat by Pulse 94 92 Oximetry Oxygen Devices in Use Now: None Appearance: Alert, NAD Eyes: No Scleral Icterus, PERRLA Ears/Nose/Mouth/Throat: NL Teeth, Lips, Gums Neck: NL Appearance and Movements; NL JVP, Trachea Midline Respiratory: Symmetrical Chest Expansion and Respiratory Effort, Clear to Auscultation Cardiovascular: NL Sounds; No Murmurs; No JVD, RRR Abdominal: NL Sounds; No Tenderness; No Distention Extremities: No Edema, No Clubbing, Cyanosis Skin: No Rash or Ulcers Neurological: Alert and Oriented x 3, NL Muscle Strength and Tone Nutrition: Taking PO's Result Diagrams: 09/07/17 07:06 09/07/17 07:06 Additional Lab and Data: . Diagnostic Imaging: Patient Name: LOKESH MOCTEZUMA Medical Record#: [id number] Ordering Physician: Elvira Fairbanks DO Acct.#: [id number] : 1945 Age: 71 Sex: F Location: [address] [place] [address] MEDICAL Exam Date: 08/30/172099 ADM Status: ADM IN Order Information: CT BRAIN WO Accession Number: [id number] CPT: 39547 INDICATION: Fall, altered mental status. COMPARISON: Comparison is made with a prior CT of the brain and MRI of the brain from August 11, 2017. TECHNIQUE: Contiguous axial sections of the brain were obtained from the skull base to the vertex without contrast. FINDINGS: The ventricles, cisterns and sulci are prominent consistent with diffuse atrophy. The ventricles appear slightly more prominent relative to the cisterns and sulci raising the possibility of normal pressure hydrocephalus. There are small areas of decreased attenuation within the subcortical and periventricular white matter consistent with mild chronic small vessel ischemic changes. No other focal abnormality or mass effect is seen. There is no evidence for hemorrhage. No significant focal osseous abnormality is seen. The visualized portion of the paranasal sinuses and mastoid air cells appear clear. IMPRESSION: 1. NO EVIDENCE FOR ACUTE FINDING. 2. ATROPHY AND CHRONIC SMALL VESSEL ISCHEMIC CHANGES. 3. THE VENTRICLES ARE ENLARGED SLIGHTLY OUT OF PROPORTION TO THE CISTERNS AND SULCI RAISING THE POSSIBILITY OF NORMAL PRESSURE HYDROCEPHALUS. <Electronically signed by Marcelo Hoffman MD in OV> 08/30/172130 Dictated By: Marcelo Hoffman MD Dictated Date/Time: 08/30/172130 Transcribed Date/Time: 08/30/172125 Assess/Plan/Problems-Billing Assessment: This is a 71 year old female with PMHx of Parkinson's Disease and frequent falls responding to sinemet. - Patient Problems (1) Falls Code(s): A01.4 - PARATYPHOID FEVER, UNSPECIFIED Comment: - Likely gait dysfunction 2/2 PD - Prefers not to go to SNF despite safety issues - Per psych, patient has capacity - Neurology consult appreciated - CT head as above (2) Parkinsonism Code(s): G20 - PARKINSON'S DISEASE SNOMED Code(s): 01452295 Comment: - Continue sinemet to 2 tabs TID - Reinforce compliance at home, being off sinemet may have contributed to falls (3) Depression Code(s): F32.9 - MAJOR DEPRESSIVE DISORDER, SINGLE EPISODE, UNSPECIFIED SNOMED Code(s): 73021035 Comment: - Mood stable, continue citalopram (4) DM2 (diabetes mellitus, type 2) Comment: - continue Lantus, metformin and glipizide with lispro SSI - BG stable (5) Hypertension Code(s): I10 - ESSENTIAL (PRIMARY) HYPERTENSION SNOMED Code(s): 06832845 Comment: - BP stable on ramipril and diltiazem (6) Hypothyroidism Code(s): E03.9 - HYPOTHYROIDISM, UNSPECIFIED SNOMED Code(s): 98524996 Comment: - Last TSH 1.44 on 08/31 - Continue levothyroxine at current dose (7) Overactive bladder Code(s): N32.81 - OVERACTIVE BLADDER SNOMED Code(s): 641843629 Comment: - Continue enablex (8) Full code status Code(s): Z78.9 - OTHER SPECIFIED HEALTH STATUS SNOMED Code(s): 851875858 Comment: - full code (9) DVT prophylaxis Code(s): RRB8123 - SNOMED Code(s): 817242635 Comment: - SCDs Status and Disposition: Inpatient. Patient has capacity and refused [facility]. Plan for D/C on Monday when family is at patient's home to assist in care; CM for VNS referral.
[2017-09-09] MEDS: Diltiazem CD CAP* 180 MG PO SCH (20:22)
[2017-09-09] MEDS: Insulin GLARGINE(*) 1 UNITS UNIT SUBCUT SCH (20:23)
[2017-09-09 23:30] LABS: Urine Appearance Cloudy; Urine Blood Negative (Negative); Urine Color Yellow; Urine Ketones Negative (Negative); Urine Protein 2+(100 mg/dL) (Negative); Urine Specific Gravity 1.009 (1.010-1.030); Urine Urobilinogen Negative (Negative)
[2017-09-10] MEDS: Levothyroxine TAB* 100 MCG TAB PO SCH (05:51)
[2017-09-10] MEDS: Nitrofurantoin Macrocrystals* 100 MG CAP PO SCH ×3 (09:30→21:14)
[2017-09-10] MEDS: glipiZIDE TAB* 5 MG PO SCH ×2 (09:31→17:05)
[2017-09-10] MEDS: metFORMIN* 1,000 MG TAB PO SCH ×2 (09:31→17:05)
[2017-09-10] MEDS: Insulin LISPRO* 1 UNITS UNIT SUBCUT SCH ×3 (09:31→18:07)
[2017-09-10] MEDS: Carbidopa/Levodop 25/100 MG TAB(*) PO SCH ×3 (09:31→21:18)
[2017-09-10] MEDS: Citalopram TAB* 40 MG PO SCH (09:31)
[2017-09-10] MEDS: Nystatin TOP POWDER* 15 GM BTL TOPICAL SCH ×3 (09:35→21:19)
[2017-09-10] MEDS: Ramipril CAP* 5 MG PO SCH (09:35)
[2017-09-10] MEDS: DARIFENACIN 15 MG PO SCH (09:37)
[2017-09-10] MEDS: Diltiazem CD CAP* 180 MG PO SCH (21:17)
[2017-09-10] MEDS ORDERED: Insulin GLARGINE(*) 1 UNITS UNIT SUBCUT SCH (21:30)
--- NOTE | 2017-09-11 00:29 | DS ---
CC: Dr. Bhavya Saavedra; Dr. Chepe Cotto * DISCHARGE SUMMARY: DATE OF ADMISSION: 08/30/17 DATE OF DISCHARGE: 09/10/17 PRIMARY CARE PHYSICIAN: Dr. Bhavya Saavedra. ATTENDING FOR THIS ADMISSION: Dr. Lucila Bautista.* (DICTATED BY CHARLA ABEBE NP) HOSPITAL COURSE: This patient is a 71-year-old female who was admitted on 08/30 and being discharged on 09/10/17. The patient presented on the evening of the to the emergency department after having a fall out of her bed at home and she was not able to get up off the floor. The patient does live by herself. It is noted also she had been admitted earlier on 08/11/17 and 08/15/17 for similar episodes of falling and not being able to get up. There was a question at that time of normal pressure hydrocephalus, but because her symptoms were improving while she was taking Sinemet, she was not receiving any further intervention at that time. However, the patient had gone to [facility], was discharged from [facility] after a couple of days of rehab, and at that point it was felt that she was in a safe discharge, and then during the 5-day course between the and her coming back on the , she had sustained an additional fall. The patient did not have any injuries from her falls; however, she was admitted at that time because of her continued falls and it was questionable whether this was just parkinsonism or partially due to her normal pressure hydrocephalus. Because the patient was refusing to go to rehab again and wanted to go home, again safety was questioned. The patient was seen by Psychiatry on the and it was determined at that point the patient does have capacity able to make decisions on her own and that she did want to go home. The patient was also seen by Neurology on the 09/05/17. She was seen by Dr. Chepe Cotto for her parkinsonism. At that time, it was noted by Dr. Cotto that she was responding to her levodopa and she seemed to be tolerating well and actually was improving. So, her dose of levodopa/carbidopa was not changed and he stated that she could be discharged from neuro service. The patient also had Physical Therapy evaluation. She does ambulate with a walker and it was determined in conjunction with her family that she would be discharged to home today when she had family available at her home to ensure helping taking of her. The patient was also referred for VNS in the house to ensure that she is taking her medications and also participating in physical therapy safely without issue. The patient also had urinary incontinence. Her urine was screened and she was positive for urinary tract infection and placed on Macrodantin at the time of discharge. MEDICATIONS AT THE TIME OF DISCHARGE: Include, 1. Tylenol 650 mg q.4 hours as needed. 2. Maalox Plus 30 mg q.6 hours as needed. 3. Sinemet 25/100 two tablets 3 times a day. 4. Celexa 40 mg daily. 5. Enablex 15 mg daily. 6. Diltiazem 360 mg in the evening. 7. Colace 100 mg 2 times a day as needed. 8. Glipizide 5 mg 2 times a day. 9. Lantus 20 units daily. 10. Trulicity 0.75 mg subcu weekly. 11. Nitrofurantoin 100 mg q.6 hours for 7 days. PHYSICAL EXAM: On the day of discharge, the patient is awake and alert. Vital signs are currently, temperature 98, heart rate 88, respiratory rate 15, satting at 95% on room air, and blood pressure is 140/46. HEENT: The patient is atraumatic and normocephalic. PERRLA with nonicteric sclerae. Oral mucosa is moist. Neck is supple, nontender. No JVD noted. No carotid bruit auscultated. No thyromegaly appreciated. Cardiovascular: S1, S2 present. Rate and rhythm are regular. No murmurs, gallops, or rubs noted. Abdomen is soft, nontender, and nondistended. Positive bowel sounds in all 4 quadrants. is deferred. Musculoskeletal: There is no clubbing, no cyanosis, and no edema. She does have some general weakness and gait dysfunction requiring a walker. Neurologic: She is intact. No gross focal deficits noted. She is alert and oriented x3. Psychiatric: She does have a flat affect; however, she is appropriate. LABORATORY DATA: WBCs 7.7, RBCs 3.82, hemoglobin 10.9, hematocrit 33, platelets 284. Sodium 134, potassium 4.3, chloride 98, CO2 29, BUN 14, creatinine 0.78, GFR 73.2, glucose has been ranging in the low 100s, calcium 9.7 , and magnesium 2.2. DISCHARGE DIAGNOSES: 1. Frequent falls. 2. Parkinsonism. 3. History of depression. 4. Diabetes mellitus type 2, insulin dependent. 5. Hypertension. 6. Hypothyroidism. 7. Overactive bladder. 8. Urinary tract infection. The patient was discharged in stable condition to home in the care of her family. All questions were answered. The patient again reiterated her understanding of her followups. She was instructed to follow up with her primary care physician and also Dr. Cotto for Neuro as needed. CHARLA ABEBE NP [id number]/[facility] #: [id number] JOSE
[2017-09-11] MEDS: Nitrofurantoin Macrocrystals* 100 MG CAP PO SCH ×2 (01:57→10:18)
[2017-09-11] MEDS: Levothyroxine TAB* 100 MCG TAB PO SCH (06:11)
[2017-09-11 07:41] VITALS: BP 160/72
[2017-09-11] MEDS: Ramipril CAP* 5 MG PO SCH (08:34)
[2017-09-11] MEDS: Carbidopa/Levodop 25/100 MG TAB(*) PO SCH (08:34)
[2017-09-11] MEDS: glipiZIDE TAB* 5 MG PO SCH (08:35)
[2017-09-11] MEDS: metFORMIN* 1,000 MG TAB PO SCH (08:35)
[2017-09-11] MEDS: Citalopram TAB* 40 MG PO SCH (08:35)
[2017-09-11] MEDS: Insulin LISPRO* 1 UNITS UNIT SUBCUT SCH ×2 (10:16→12:53)
[2017-09-11] MEDS: DARIFENACIN 15 MG PO SCH (10:18)
[2017-09-11] MEDS: Nystatin TOP POWDER* 15 GM BTL TOPICAL SCH (10:19)
== END 2017-09-11 12:20 | disposition home health service (06) | DRG 57 ==
LOC: ED 14:01 → MED 21:02
PROVIDERS: ADMIT Pediatrics; ATTEND Internal Medicine
DX: G20 Parkinson's disease (principal); G91.2 (Idiopathic) normal pressure hydrocephalus; F03.90 Unspecified dementia, unspecified severity, without behavioral disturbance, psychotic disturbance, mood disturbance, and anxiety; E66.01 Morbid (severe) obesity due to excess calories; N39.0 Urinary tract infection, site not specified; E03.9 Hypothyroidism, unspecified; R29.6 Repeated falls; F32.9 Major depressive disorder, single episode, unspecified; N32.81 Overactive bladder; R32 Unspecified urinary incontinence; I10 Essential (primary) hypertension; E11.9 Type 2 diabetes mellitus without complications; R00.0 Tachycardia, unspecified; Z96.649 Presence of unspecified artificial hip joint; R41.9 Unspecified symptoms and signs involving cognitive functions and awareness; Z79.84 Long term (current) use of oral hypoglycemic drugs; Z88.2 Allergy status to sulfonamides; Z91.018 Allergy to other foods; Z83.3 Family history of diabetes mellitus; Z87.891 Personal history of nicotine dependence; Z68.39 Body mass index [BMI] 39.0-39.9, adult
CPT/HCPCS: 36415; 70450; 71045; 80048; 80053; 81003; 81015; 82550; 83605; 83735; 84443; 84484; 85025; 87077; 87086; 87186; 93005; 99285; A9270-GY; J1644; J3475

== ENCOUNTER 2020-07-19 11:27 | Observation (INO) ==
[2020-07-19] MEDS ORDERED: NS 0.9% 1000 ml BAG 1,000 ML IV ONE ×2 (12:43→13:41)
[2020-07-19 13:19] LABS: ABS Basophils 0.1 10^3/ul (0-0.2); ABS Lymphocytes 1.1 10^3/ul (1.0-4.8); ABS Monocytes 0.7 10^3/ul (0-0.8); ABS Neutrophils 8.2 10^3/ul (1.5-7.7); Eosinophil % 0.4 %; Hematocrit 37 % (35-47); Hemoglobin 12.6 g/dL (12.0-16.0); Lymphocyte % 10.8 %; Mean Corpuscular HGB Conc 35 g/dL (31-36); Mean Corpuscular Hemoglobin 30 pg (27-31); Mean Corpuscular Volume 85 fL (80-97); Mean Platelet Volume 9.2 fL (7.4-10.4); Platelet Count 280 10^3/uL (150-450); Red Blood Count 4.28 10^6 /uL (3.70-4.87); Red Cell Distribution Width 14 % (10-15); White Blood Count 10.1 10^3/uL (3.5-10.8)
[2020-07-19 13:30] LABS: INR 1.2 (0.82-1.09)
[2020-07-19 13:37] LABS: Albumin 3.8 g/dL (3.2-5.2); Albumin/Globulin Ratio 1.1 (1-3); BUN/Creatinine Ratio 18.7 (8-20); C Reactive Protein 48.04 mg/L (<8.01); Calcium 9.8 mg/dL (8.6-10.3); EGFR African American 51.9 (>60); EGFR Non-African American 42.9 (>60); Globulin 3.6 g/dL (2-4); Magnesium 1.6 mg/dL (1.9-2.7); Potassium 4.2 mmol/L (3.5-5.0); Total Bilirubin 0.5 mg/dL (0.2-1.0); Total Protein 7.4 g/dL (6.4-8.9)
[2020-07-19 14:46] LABS: TSH Ultra Thyroid Stim Horm 1.07 mcIU/mL (0.34-5.60)
[2020-07-19 17:05] LABS: Urine Appearance Turbid; Urine Bilirubin Negative (Negative); Urine Blood 1+ (Negative); Urine Color Amber; Urine Glucose 1+(50 mg/dL) (Negative); Urine Ketones Trace (Negative); Urine Nitrite Positive (Negative); Urine Protein 3+(>=500 mg/dL) (Negative); Urine Specific Gravity 1.015 (1.010-1.030); Urine Urobilinogen Negative (Negative)
[2020-07-19 17:10] LABS: Urine Bacteria 3+ (Absent); Urine Red Blood Cell Trace(0-2/hpf) (Absent); Urine Squamous Epithelial Cell Present (Absent); Urine White Blood Cell 3+(>20/hpf) (Absent)
[2020-07-19] MEDS ORDERED: Ciprofloxacin 400mg IVPREMIX 400 MG/200 ML BAG IVPB ONE (17:29)
[2020-07-19] MEDS ORDERED: cefTRIAXone 1 gm/50 mL NS BAG 1 GM/50 ML BAG IV ONE (17:31)
[2020-07-19] MEDS ORDERED: Al Hydrox/Mg Hydrox/Simet LIQ 30 ML UDC PO PRN (20:31)
[2020-07-19] MEDS ORDERED: Dextrose 50% Syringe 50 ml 25 GM/50 ML SYRINGE IV PUSH PRN (20:34)
[2020-07-19] MEDS ORDERED: NS 0.9% 500 ml BAG 500 ML IV ONE (20:35)
[2020-07-19] MEDS ORDERED: Magnesium Sulfate 2 gm BAG 2 GM/50 ML BAG IVPB ONE (20:50)
[2020-07-19] MEDS: Carbidopa/Levodop 25/100 MG TAB PO SCH (22:16)
[2020-07-20] MEDS: Heparin 5000 UNITS/ML 1 mL VIAL SUBCUT SCH ×4 (00:02→21:35)
[2020-07-20] MEDS: cefTRIAXone 1 gm/50 mL NS BAG 1 GM/50 ML BAG IVPB SCH ×2 (01:13→21:35)
[2020-07-20 05:25] LABS: ABS Eosinophils 0.1 10^3/ul (0-0.6); ABS Lymphocytes 1.9 10^3/ul (1.0-4.8); ABS Monocytes 0.4 10^3/ul (0-0.8); ABS Neutrophils 4.1 10^3/ul (1.5-7.7); Eosinophil % 2.1 %; Hematocrit 31 % (35-47); Hemoglobin 10.4 g/dL (12.0-16.0); Lymphocyte % 28.6 %; Mean Corpuscular HGB Conc 34 g/dL (31-36); Mean Corpuscular Hemoglobin 29 pg (27-31); Mean Corpuscular Volume 87 fL (80-97); Mean Platelet Volume 9.3 fL (7.4-10.4); Platelet Count 208 10^3/uL (150-450); Red Blood Count 3.58 10^6 /uL (3.70-4.87); Red Cell Distribution Width 14 % (10-15); White Blood Count 6.6 10^3/uL (3.5-10.8)
[2020-07-20 05:43] LABS: BUN/Creatinine Ratio 20.2 (8-20); Calcium 8.6 mg/dL (8.6-10.3); EGFR African American 56.7 (>60); EGFR Non-African American 46.9 (>60); Magnesium 2.1 mg/dL (1.9-2.7); Potassium 3.9 mmol/L (3.5-5.0)
[2020-07-20] MEDS: Carbidopa/Levodop 25/100 MG TAB PO SCH ×3 (08:21→20:33)
[2020-07-20] MEDS ORDERED: Insulin GLARGINE 100 un/ml 10 ml VIAL SUBCUT SCH (09:00)
[2020-07-20] MEDS: CMC:Solifenacin 5 mg TAB (NF) PO SCH (11:41)
[2020-07-21] MEDS: Heparin 5000 UNITS/ML 1 mL VIAL SUBCUT SCH ×3 (05:41→21:45)
[2020-07-21] MEDS: Carbidopa/Levodop 25/100 MG TAB PO SCH ×3 (08:39→21:44)
[2020-07-21] MEDS: CMC:Solifenacin 5 mg TAB (NF) PO SCH (08:40)
[2020-07-21] MEDS ORDERED: Insulin GLARGINE 100 un/ml 10 ml VIAL SUBCUT SCH (09:00)
[2020-07-21] MEDS: cefTRIAXone 1 gm/50 mL NS BAG 1 GM/50 ML BAG IVPB SCH (22:58)
[2020-07-22] MEDS: Heparin 5000 UNITS/ML 1 mL VIAL SUBCUT SCH ×3 (05:58→20:28)
[2020-07-22] MEDS: Insulin GLARGINE 100 un/ml 10 ml VIAL SUBCUT SCH (08:33)
[2020-07-22] MEDS: CMC:Solifenacin 5 mg TAB (NF) PO SCH (08:36)
[2020-07-22] MEDS: Carbidopa/Levodop 25/100 MG TAB PO SCH ×3 (08:36→20:28)
[2020-07-23] MEDS: Heparin 5000 UNITS/ML 1 mL VIAL SUBCUT SCH ×2 (05:16→13:45)
[2020-07-23] MEDS: Carbidopa/Levodop 25/100 MG TAB PO SCH ×2 (09:12→13:44)
[2020-07-23] MEDS: CMC:Solifenacin 5 mg TAB (NF) PO SCH (09:12)
[2020-07-23] MEDS: Insulin GLARGINE 100 un/ml 10 ml VIAL SUBCUT SCH (09:13)
[2020-07-23 10:59] VITALS: BP 127/96
== END 2020-07-23 14:20 | disposition home or self-care (01) ==
LOC: MEDTELE 11:27 → ED 11:27 → MEDTELE 22:59
PROVIDERS: ADMIT Internal Medicine; ATTEND Hospitalist

== ENCOUNTER 2020-08-13 23:38 | Observation (INO) ==
[2020-08-14 00:13] LABS: ABS Basophils 0.1 10^3/ul (0-0.2); ABS Eosinophils 0.2 10^3/ul (0-0.6); ABS Lymphocytes 1.1 10^3/ul (1.0-4.8); ABS Monocytes 0.5 10^3/ul (0-0.8); ABS Neutrophils 7.4 10^3/ul (1.5-7.7); Eosinophil % 1.8 %; Hematocrit 32 % (35-47); Hemoglobin 10.5 g/dL (12.0-16.0); Lymphocyte % 12.1 %; Mean Corpuscular HGB Conc 33 g/dL (31-36); Mean Corpuscular Hemoglobin 29 pg (27-31); Mean Corpuscular Volume 87 fL (80-97); Mean Platelet Volume 9.1 fL (7.4-10.4); Platelet Count 262 10^3/uL (150-450); Red Blood Count 3.64 10^6 /uL (3.70-4.87); Red Cell Distribution Width 14 % (10-15); White Blood Count 9.3 10^3/uL (3.5-10.8)
[2020-08-14 00:25] LABS: Albumin 3.6 g/dL (3.2-5.2); Albumin/Globulin Ratio 1.2 (1-3); BUN/Creatinine Ratio 17.8 (8-20); Calcium 9.1 mg/dL (8.6-10.3); EGFR African American 65.2 (>60); EGFR Non-African American 53.9 (>60); Globulin 3.1 g/dL (2-4); Potassium 3.8 mmol/L (3.5-5.0); Total Bilirubin 0.3 mg/dL (0.2-1.0); Total Protein 6.7 g/dL (6.4-8.9)
[2020-08-14] MEDS ORDERED: Iodixanol (CONTRAST) 320 MG/ML 100 ML SDV IV ONE (01:25)
[2020-08-14] MEDS ORDERED: NS 0.9% 1000 ml BAG 1,000 ML IV SCH (03:45)
[2020-08-14] MEDS ORDERED: Dextrose 50% Syringe 50 ml 25 GM/50 ML SYRINGE IV PUSH PRN (04:12)
[2020-08-14 05:26] LABS: Urine Appearance Turbid; Urine Bilirubin Negative (Negative); Urine Blood 1+ (Negative); Urine Color Yellow; Urine Glucose Negative (Negative); Urine Ketones Negative (Negative); Urine Nitrite Negative (Negative); Urine Protein 2+(100 mg/dL) (Negative); Urine Specific Gravity 1.057 (1.010-1.030); Urine Urobilinogen Negative (Negative)
[2020-08-14 05:38] LABS: Urine Bacteria 1+ (Absent); Urine Red Blood Cell 3+(>10/hpf) (Absent); Urine Squamous Epithelial Cell Present (Absent); Urine White Blood Cell 3+(>20/hpf) (Absent)
[2020-08-14] MEDS: Carbidopa/Levodop 25/100 MG TAB PO SCH ×4 (08:22→21:16)
[2020-08-14] MEDS ORDERED: Perflutren Lipid Microsphere 3 ML VIAL ONE (10:20)
[2020-08-14] MEDS: Nystatin TOP POWDER 15 GM BTL TOPICAL SCH ×2 (12:27→21:16)
[2020-08-15] MEDS: Carbidopa/Levodop 25/100 MG TAB PO SCH ×2 (08:27→14:13)
[2020-08-15] MEDS: Nystatin TOP POWDER 15 GM BTL TOPICAL SCH (08:30)
[2020-08-15 12:30] VITALS: BP 152/65
== END 2020-08-15 15:00 | disposition home or self-care (01) ==
LOC: MEDTELE 23:38 → ED 23:38 → MEDTELE 08-14 07:03 → ED 08-14 07:03
PROVIDERS: ADMIT Student in an Organized Health Care Education/Training Program; ATTEND Internal Medicine

== ENCOUNTER 2020-08-17 15:51 | Observation (INO) ==
[2020-08-17] MEDS ORDERED: NS 0.9% 1000 ml BAG 1,000 ML IV ONE (16:02)
[2020-08-17] MEDS ORDERED: Metoclopramide 5 MG/ML VIAL (10 mg) IV ONE (16:33)
[2020-08-17 17:29] LABS: ABS Monocytes 0.4 10^3/ul (0-0.8); ABS Neutrophils 7.7 10^3/ul (1.5-7.7); Eosinophil % 0.3 %; Hematocrit 37 % (35-47); Hemoglobin 12.8 g/dL (12.0-16.0); Lymphocyte % 11.2 %; Mean Corpuscular HGB Conc 35 g/dL (31-36); Mean Corpuscular Hemoglobin 30 pg (27-31); Mean Corpuscular Volume 85 fL (80-97); Mean Platelet Volume 8.9 fL (7.4-10.4); Platelet Count 339 10^3/uL (150-450); Red Blood Count 4.31 10^6 /uL (3.70-4.87); Red Cell Distribution Width 14 % (10-15); White Blood Count 9.2 10^3/uL (3.5-10.8)
[2020-08-17 17:46] LABS: ALT 15 U/L (7-52); Alkaline Phosphatase 102 U/L (34-104); BUN/Creatinine Ratio 14.9 (8-20); Blood Urea Nitrogen 13 mg/dL (6-24); C Reactive Protein 46.44 mg/L (<8.01); CO2 Carbon Dioxide 28 mmol/L (22-32); Calcium 9.9 mg/dL (8.6-10.3); Chloride 97 mmol/L (101-111); Creatine Kinase 41 U/L (10-223); EGFR African American 77.4 (>60); Glucose 144 mg/dL (70-100); Magnesium 1.6 mg/dL (1.9-2.7); Sodium 135 mmol/L (135-145)
[2020-08-17] MEDS ORDERED: Iodixanol (CONTRAST) 320 MG/ML 100 ML SDV IV ONE (17:50)
[2020-08-17 18:03] LABS: Alcohol, S < 10 mg/dL (<10)
[2020-08-17 18:27] LABS: Anion Gap 10 mmol/L (2-11)
[2020-08-17 19:02] LABS: Potassium Redraw 4.2 mmol/L (3.5-5.0)
[2020-08-17] MEDS ORDERED: Magnesium Sulfate 2 gm BAG 2 GM/50 ML BAG IVPB ONE (19:09)
[2020-08-17 19:45] LABS: Urine Benzodiazepine Screen None Detected (None Detect); Urine Buprenorphine Screen None Detected (None Detect); Urine Cannabinoids Screen None Detected (None Detect); Urine Fentanyl Screen None Detected (None Detect); Urine Hydrocodone Screen None Detected (None Detect); Urine Opiates Screen None Detected (None Detect)
[2020-08-17] MEDS ORDERED: Dextrose 50% Syringe 50 ml 25 GM/50 ML SYRINGE IV PUSH PRN (21:43)
[2020-08-17] MEDS: Carbidopa/Levodop 25/100 MG TAB PO SCH (23:49)
[2020-08-18] MEDS: cefTRIAXone 1 gm/50 mL NS BAG 1 GM/50 ML BAG IVPB SCH (01:20)
[2020-08-18] MEDS: Heparin 5000 UNITS/ML 1 mL VIAL SUBCUT SCH ×2 (06:00→13:19)
[2020-08-18 06:50] LABS: ABS Basophils 0.1 10^3/ul (0-0.2); ABS Eosinophils 0.2 10^3/ul (0-0.6); ABS Lymphocytes 1.3 10^3/ul (1.0-4.8); ABS Monocytes 0.5 10^3/ul (0-0.8); ABS Neutrophils 5.2 10^3/ul (1.5-7.7); Eosinophil % 2.1 %; Hematocrit 30 % (35-47); Hemoglobin 10.1 g/dL (12.0-16.0); Lymphocyte % 17.5 %; Mean Corpuscular HGB Conc 34 g/dL (31-36); Mean Corpuscular Hemoglobin 29 pg (27-31); Mean Corpuscular Volume 86 fL (80-97); Mean Platelet Volume 8.8 fL (7.4-10.4); Platelet Count 258 10^3/uL (150-450); Red Blood Count 3.45 10^6 /uL (3.70-4.87); Red Cell Distribution Width 14 % (10-15); White Blood Count 7.2 10^3/uL (3.5-10.8)
[2020-08-18 07:01] LABS: Calcium 8.6 mg/dL (8.6-10.3); Potassium 3.9 mmol/L (3.5-5.0)
[2020-08-18 07:07] LABS: BUN/Creatinine Ratio 14.4 (8-20); EGFR African American 74.5 (>60); EGFR Non-African American 61.5 (>60)
[2020-08-18] MEDS: Carbidopa/Levodop 25/100 MG TAB PO SCH ×3 (08:40→20:51)
[2020-08-18 12:04] LABS: Total Iron Binding Capacity 326 mcg/dL (250-450); Transferrin 233 mg/dL (203-362)
[2020-08-18 14:24] LABS: % Iron Saturation 15 % (15-55); Unsaturated Iron Binding < 311 ug/dL
[2020-08-18 14:25] LABS: Iron 50 ug/dL (50-212)
[2020-08-18] MEDS ORDERED: Cyanocobalamin INJ 1,000 MCG/ML VIAL 1 ML VIAL IM ONE (18:30)
[2020-08-18] MEDS ORDERED: Enoxaparin 40 MG/0.4 ML SYR SUBCUT SCH (21:00)
[2020-08-19] MEDS: cefTRIAXone 1 gm/50 mL NS BAG 1 GM/50 ML BAG IVPB SCH (00:42)
[2020-08-19] MEDS: Carbidopa/Levodop 25/100 MG TAB PO SCH ×2 (07:59→12:58)
[2020-08-19 16:49] VITALS: BP 122/51
== END 2020-08-19 17:35 | disposition home or self-care (01) ==
LOC: ED 15:51 → MEDTELE 15:51
PROVIDERS: ADMIT Student in an Organized Health Care Education/Training Program; ATTEND Internal Medicine

== ENCOUNTER 2020-09-01 15:50 | Inpatient (IN) ==
[2020-09-01] MEDS ORDERED: Al Hydrox/Mg Hydrox/Simet LIQ 30 ML UDC PO PRN (18:11)
[2020-09-01] MEDS ORDERED: Dextrose 50% Syringe 50 ml 25 GM/50 ML SYRINGE IV PUSH PRN (18:14)
[2020-09-01 18:28] LABS: ABS Basophils 0.1 10^3/ul (0-0.2); ABS Eosinophils 0.1 10^3/ul (0-0.6); ABS Lymphocytes 1.1 10^3/ul (1.0-4.8); ABS Monocytes 0.4 10^3/ul (0-0.8); ABS Neutrophils 5.8 10^3/ul (1.5-7.7); Hematocrit 32 % (35-47); Hemoglobin 10.9 g/dL (12.0-16.0); Lymphocyte % 14.2 %; Mean Corpuscular HGB Conc 35 g/dL (31-36); Mean Corpuscular Hemoglobin 30 pg (27-31); Mean Corpuscular Volume 86 fL (80-97); Mean Platelet Volume 9.2 fL (7.4-10.4); Nucleated Red Blood Cells % 0.2; Platelet Count 209 10^3/uL (150-450); Red Blood Count 3.65 10^6 /uL (3.70-4.87); Red Cell Distribution Width 14 % (10-15); White Blood Count 7.4 10^3/uL (3.5-10.8)
[2020-09-01 18:47] LABS: Albumin 3.6 g/dL (3.2-5.2); Calcium 8.9 mg/dL (8.6-10.3); Magnesium 1.6 mg/dL (1.9-2.7); Total Bilirubin 0.3 mg/dL (0.2-1.0)
[2020-09-01] MEDS ORDERED: Magnesium Sulfate IV 3 GM in NS 0.9% 100 ml BAG 100 ML IVPB ONE (18:52)
[2020-09-01 18:54] LABS: Albumin/Globulin Ratio 1.2 (1-3); BUN/Creatinine Ratio 20.5 (8-20); C Reactive Protein 24.05 mg/L (<8.01); EGFR African American 57.9 (>60); EGFR Non-African American 47.8 (>60); Globulin 2.9 g/dL (2-4); Total Protein 6.5 g/dL (6.4-8.9)
[2020-09-01 18:56] LABS: Potassium 4.6 mmol/L (3.5-5.0)
[2020-09-01 19:23] LABS: TSH Ultra Thyroid Stim Horm 1.8 mcIU/mL (0.34-5.60)
[2020-09-01] MEDS ORDERED: Insulin GLARGINE 100 un/ml 10 ml VIAL SUBCUT SCH (21:00)
[2020-09-02] MEDS: Enoxaparin 40 MG/0.4 ML SYR SUBCUT SCH ×2 (00:24→19:48)
[2020-09-02] MEDS: Carbidopa/Levodop 25/100 MG TAB PO SCH ×4 (00:25→19:47)
[2020-09-02 10:01] LABS: ABS Basophils 0.1 10^3/ul (0-0.2); ABS Eosinophils 0.2 10^3/ul (0-0.6); ABS Lymphocytes 1.3 10^3/ul (1.0-4.8); ABS Monocytes 0.3 10^3/ul (0-0.8); ABS Neutrophils 2.9 10^3/ul (1.5-7.7); Eosinophil % 3.6 %; Hematocrit 30 % (35-47); Lymphocyte % 26.7 %; Mean Corpuscular HGB Conc 34 g/dL (31-36); Mean Corpuscular Hemoglobin 29 pg (27-31); Mean Corpuscular Volume 86 fL (80-97); Mean Platelet Volume 9.1 fL (7.4-10.4); Nucleated Red Blood Cells % 0.1; Platelet Count 190 10^3/uL (150-450); Red Blood Count 3.45 10^6 /uL (3.70-4.87); Red Cell Distribution Width 14 % (10-15); White Blood Count 4.8 10^3/uL (3.5-10.8)
[2020-09-02 10:16] LABS: BUN/Creatinine Ratio 18.1 (8-20); Calcium 8.8 mg/dL (8.6-10.3); EGFR African American 70.8 (>60); EGFR Non-African American 58.5 (>60)
[2020-09-02] MEDS ORDERED: Insulin GLARGINE 100 un/ml 10 ml VIAL SUBCUT SCH (21:00)
[2020-09-03 06:30] LABS: Urine Appearance Cloudy; Urine Bilirubin Negative (Negative); Urine Blood Negative (Negative); Urine Color Straw; Urine Glucose Negative (Negative); Urine Ketones Negative (Negative); Urine Nitrite Negative (Negative); Urine Protein 1+(30 mg/dL) (Negative); Urine Specific Gravity 1.005 (1.010-1.030); Urine Urobilinogen Negative (Negative)
[2020-09-03 06:40] LABS: Urine Bacteria Absent (Absent); Urine Red Blood Cell Trace(0-2/hpf) (Absent); Urine Squamous Epithelial Cell Present (Absent); Urine White Blood Cell Trace(0-5/hpf) (Absent)
[2020-09-03] MEDS: Carbidopa/Levodop 25/100 MG TAB PO SCH ×3 (08:32→19:59)
[2020-09-03] MEDS: Enoxaparin 40 MG/0.4 ML SYR SUBCUT SCH (19:59)
[2020-09-03] MEDS: Insulin GLARGINE 100 un/ml 10 ml VIAL SUBCUT SCH (20:00)
[2020-09-04] MEDS: Carbidopa/Levodop 25/100 MG TAB PO SCH ×3 (08:16→19:54)
[2020-09-04] MEDS: Insulin GLARGINE 100 un/ml 10 ml VIAL SUBCUT SCH (19:50)
[2020-09-04] MEDS: Enoxaparin 40 MG/0.4 ML SYR SUBCUT SCH (19:50)
[2020-09-05] MEDS: Carbidopa/Levodop 25/100 MG TAB PO SCH ×3 (09:45→19:45)
[2020-09-05] MEDS: Enoxaparin 40 MG/0.4 ML SYR SUBCUT SCH (19:46)
[2020-09-05] MEDS: Insulin GLARGINE 100 un/ml 10 ml VIAL SUBCUT SCH (19:46)
[2020-09-06] MEDS: Carbidopa/Levodop 25/100 MG TAB PO SCH ×3 (10:26→21:19)
[2020-09-06] MEDS: Enoxaparin 40 MG/0.4 ML SYR SUBCUT SCH (21:19)
[2020-09-06] MEDS: Insulin GLARGINE 100 un/ml 10 ml VIAL SUBCUT SCH (21:20)
[2020-09-07] MEDS: Carbidopa/Levodop 25/100 MG TAB PO SCH ×3 (08:39→19:59)
[2020-09-07] MEDS: Enoxaparin 40 MG/0.4 ML SYR SUBCUT SCH (19:59)
[2020-09-07] MEDS: Insulin GLARGINE 100 un/ml 10 ml VIAL SUBCUT SCH (20:00)
[2020-09-08] MEDS: Carbidopa/Levodop 25/100 MG TAB PO SCH ×3 (08:27→20:05)
[2020-09-08] MEDS: Enoxaparin 40 MG/0.4 ML SYR SUBCUT SCH (20:05)
[2020-09-08] MEDS: Insulin GLARGINE 100 un/ml 10 ml VIAL SUBCUT SCH (20:07)
[2020-09-09] MEDS: Carbidopa/Levodop 25/100 MG TAB PO SCH ×3 (08:21→21:07)
[2020-09-09] MEDS: Insulin GLARGINE 100 un/ml 10 ml VIAL SUBCUT SCH (21:07)
[2020-09-09] MEDS: Enoxaparin 40 MG/0.4 ML SYR SUBCUT SCH (21:07)
[2020-09-10] MEDS: Carbidopa/Levodop 25/100 MG TAB PO SCH ×3 (08:51→21:46)
[2020-09-10] MEDS: Enoxaparin 40 MG/0.4 ML SYR SUBCUT SCH (21:46)
[2020-09-10] MEDS: Insulin GLARGINE 100 un/ml 10 ml VIAL SUBCUT SCH (21:47)
[2020-09-11] MEDS: Carbidopa/Levodop 25/100 MG TAB PO SCH ×3 (10:46→21:25)
[2020-09-11] MEDS: Enoxaparin 40 MG/0.4 ML SYR SUBCUT SCH (21:25)
[2020-09-11] MEDS: Insulin GLARGINE 100 un/ml 10 ml VIAL SUBCUT SCH (21:26)
[2020-09-12] MEDS: Carbidopa/Levodop 25/100 MG TAB PO SCH ×3 (09:30→20:51)
[2020-09-12] MEDS: Insulin GLARGINE 100 un/ml 10 ml VIAL SUBCUT SCH (20:53)
[2020-09-12] MEDS: Enoxaparin 40 MG/0.4 ML SYR SUBCUT SCH (20:55)
[2020-09-13] MEDS: Carbidopa/Levodop 25/100 MG TAB PO SCH ×3 (09:59→21:25)
[2020-09-13] MEDS: Insulin GLARGINE 100 un/ml 10 ml VIAL SUBCUT SCH (21:26)
[2020-09-13] MEDS: Enoxaparin 40 MG/0.4 ML SYR SUBCUT SCH (21:27)
[2020-09-14] MEDS: Carbidopa/Levodop 25/100 MG TAB PO SCH ×3 (10:00→20:49)
[2020-09-14] MEDS: Enoxaparin 40 MG/0.4 ML SYR SUBCUT SCH (20:49)
[2020-09-14] MEDS: Insulin GLARGINE 100 un/ml 10 ml VIAL SUBCUT SCH (20:49)
[2020-09-15 09:11] VITALS: BP 145/58
[2020-09-15] MEDS: Carbidopa/Levodop 25/100 MG TAB PO SCH (09:12)
== END 2020-09-15 14:00 | disposition home or self-care (01) | DRG 57 ==
LOC: ED 15:50 → MED 15:50
PROVIDERS: ADMIT Internal Medicine; ATTEND Internal Medicine

== ENCOUNTER 2021-02-27 20:30 | Inpatient (IN) ==
[2021-02-28 01:44] LABS: ABS Basophils 0.1 10^3/ul (0-0.2); ABS Eosinophils 0.3 10^3/ul (0-0.6); ABS Lymphocytes 2.4 10^3/ul (1.0-4.8); ABS Monocytes 0.6 10^3/ul (0-0.8); ABS Neutrophils 6.4 10^3/ul (1.5-7.7); Eosinophil % 3.1 %; Hematocrit 30 % (35-47); Hemoglobin 10.2 g/dL (12.0-16.0); Lymphocyte % 24.7 %; Mean Corpuscular HGB Conc 34 g/dL (31-36); Mean Corpuscular Hemoglobin 28 pg (27-31); Mean Corpuscular Volume 83 fL (80-97); Mean Platelet Volume 8.6 fL (7.4-10.4); Platelet Count 239 10^3/uL (150-450); Red Blood Count 3.65 10^6 /uL (3.70-4.87); Red Cell Distribution Width 15 % (10-15); White Blood Count 9.8 10^3/uL (3.5-10.8)
[2021-02-28 02:02] LABS: Albumin 3.8 g/dL (3.2-5.2); Albumin/Globulin Ratio 1.3 (1-3); Calcium 9.5 mg/dL (8.6-10.3); EGFR African American 68.9 (>60); Potassium 4.4 mmol/L (3.5-5.0); Total Bilirubin 0.3 mg/dL (0.2-1.0); Total Protein 6.8 g/dL (6.4-8.9)
[2021-02-28] MEDS ORDERED: NS 0.9% 1000 ml BAG 1,000 ML IV ONE (02:23)
[2021-02-28] MEDS ORDERED: Ondansetron 4 mg VIAL 2 MG/ML 2 ml VIAL IV PRN (05:54)
[2021-02-28] MEDS ORDERED: NS 0.9% 1000 ml BAG 1,000 ML IV SCH (06:00)
[2021-02-28] MEDS ORDERED: Dextrose 50% Syringe 50 ml 25 GM/50 ML SYRINGE IV PUSH PRN (06:06)
[2021-02-28 08:11] LABS: TSH Ultra Thyroid Stim Horm 1.42 mcIU/mL (0.34-5.60)
[2021-02-28] MEDS: Enoxaparin 40 MG/0.4 ML SYR SUBCUT SCH (08:35)
[2021-02-28] MEDS: Carbidopa/Levodop 25/100 MG TAB PO SCH ×3 (08:36→21:23)
[2021-03-01] MEDS: Enoxaparin 40 MG/0.4 ML SYR SUBCUT SCH (06:19)
[2021-03-01 06:40] LABS: ABS Basophils 0.1 10^3/ul (0-0.2); ABS Eosinophils 0.4 10^3/ul (0-0.6); ABS Lymphocytes 2.2 10^3/ul (1.0-4.8); ABS Monocytes 0.4 10^3/ul (0-0.8); ABS Neutrophils 3.6 10^3/ul (1.5-7.7); Eosinophil % 5.4 %; Hematocrit 30 % (35-47); Hemoglobin 10.1 g/dL (12.0-16.0); Lymphocyte % 33.4 %; Mean Corpuscular HGB Conc 33 g/dL (31-36); Mean Corpuscular Hemoglobin 28 pg (27-31); Mean Corpuscular Volume 83 fL (80-97); Mean Platelet Volume 8.4 fL (7.4-10.4); Platelet Count 220 10^3/uL (150-450); Red Blood Count 3.65 10^6 /uL (3.70-4.87); Red Cell Distribution Width 15 % (10-15); White Blood Count 6.6 10^3/uL (3.5-10.8)
[2021-03-01 07:01] LABS: EGFR African American 69.8 (>60); EGFR Non-African American 57.7 (>60); Potassium 4.4 mmol/L (3.5-5.0)
[2021-03-01] MEDS: Carbidopa/Levodop 25/100 MG TAB PO SCH ×3 (08:28→21:03)
[2021-03-02] MEDS: Enoxaparin 40 MG/0.4 ML SYR SUBCUT SCH (06:35)
[2021-03-02] MEDS: Carbidopa/Levodop 25/100 MG TAB PO SCH ×3 (10:00→20:21)
[2021-03-03] MEDS: Enoxaparin 40 MG/0.4 ML SYR SUBCUT SCH (05:22)
[2021-03-03] MEDS: Carbidopa/Levodop 25/100 MG TAB PO SCH ×3 (10:14→20:51)
[2021-03-04] MEDS: Enoxaparin 40 MG/0.4 ML SYR SUBCUT SCH (05:53)
[2021-03-04] MEDS: Carbidopa/Levodop 25/100 MG TAB PO SCH ×2 (08:38→13:45)
[2021-03-04 12:08] VITALS: BP 132/53
== END 2021-03-04 14:40 | DRG 57 ==
LOC: ED 20:30 → MED 02-28 05:55
PROVIDERS: ADMIT Internal Medicine; ATTEND Internal Medicine

== ENCOUNTER 2024-07-09 16:34 | Inpatient (IN) ==
[2024-07-09 17:40] LABS: ABS Basophils 0.1 10^3/uL (0.0-0.1); ABS Lymphocytes 0.8 10^3/uL (1.0-4.8); ABS Monocytes 0.9 10^3/uL (0.0-0.9); ABS Neutrophils 15.9 10^3/uL (1.5-7.6); ABS Nucleated RBC 0.01 10^3/ul; Eosinophil % 0.1 %; Hematocrit 31.5 % (35-45); Hemoglobin 10.1 g/dL (11.5-14.3); Lymphocyte % 4.5 %; Mean Corpuscular Hemoglobin 26.8 pg (27-33); Mean Corpuscular Hgb Conc 32.1 g/dL (31-36); Mean Corpuscular Volume 83.6 fL (80-97); Mean Platelet Volume 8.6 fL (7.5-11.2); Platelet Count 359 10^3/uL (150-450); Red Blood Count 3.78 10^6/uL (3.63-4.92); Red Cell Distribution Width 15.9 % (12-17); White Blood Count 17.7 10^3/uL (3.8-11.8)
[2024-07-09] MEDS: Lactated Ringers 1000 ml BAG 1,000 ML IV ONE ×2 (18:23→22:16)
[2024-07-09] MEDS: cefTRIAXone 1 gm/50 mL D5W 1 GM/50 ML BAG IV ONE (18:23)
[2024-07-09 18:26] LABS: Albumin 3.9 g/dL (3.2-5.2); Albumin/Globulin Ratio 1.1 (1-3); C Reactive Protein 144.26 mg/L (<8.01); Calcium 10.2 mg/dL (8.6-10.3); Creatinine, Serum 2.06 mg/dL (0.51-0.95); Globulin 3.4 g/dL (2-4); Potassium 4.6 mmol/L (3.5-5.0); Total Bilirubin 0.4 mg/dL (0.2-1.0); Total Protein 7.3 g/dL (6.4-8.9); eGFR CKD-EPI 24.5 (>60)
[2024-07-09] MEDS: Acetaminophen IV 1 GM/100ML 1,000 MG/100 ML BAG IV ONE (18:46)
[2024-07-09 19:04] LABS: High Sensitivity Troponin 1 Hr 7 pg/mL (<15)
[2024-07-09 20:42] LABS: Urine Appearance Turbid; Urine Bilirubin Negative (Negative); Urine Blood Negative (Negative); Urine Color Light-Yellow; Urine Glucose Negative (Negative); Urine Ketones Negative (Negative); Urine Nitrite Negative (Negative); Urine Protein 3+ (>=300 mg/dL) (Negative); Urine Urobilinogen Negative (Negative)
[2024-07-09 20:45] LABS: Urine Bacteria 3+ /HPF (Absent); Urine Red Blood Cell Trace(0-2/hpf) /HPF (0-Trace); Urine Squamous Epithelial Cell Present /HPF (Absent); Urine Transitional Epithelial Present /HPF (Absent); Urine White Blood Cell 1+(6-10/hpf) /HPF (0-Trace)
[2024-07-09] MEDS: Carbidopa/Levodop 25/100 MG TAB PO SCH (23:24)
[2024-07-10] MEDS: Ondansetron 4 mg VIAL 2 MG/ML 2 ml VIAL IV ONE (01:02)
[2024-07-10] MEDS: Heparin 5000 UNITS/ML 1 mL VIAL SUBCUT SCH (01:02)
[2024-07-10 04:31] LABS: ABS Basophils 0.1 10^3/uL (0.0-0.1); ABS Lymphocytes 0.8 10^3/uL (1.0-4.8); ABS Monocytes 0.8 10^3/uL (0.0-0.9); ABS Neutrophils 15.1 10^3/uL (1.5-7.6); Hematocrit 29.2 % (35-45); Hemoglobin 9.5 g/dL (11.5-14.3); Mean Corpuscular Hgb Conc 32.4 g/dL (31-36); Mean Corpuscular Volume 83.6 fL (80-97); Mean Platelet Volume 8.7 fL (7.5-11.2); Platelet Count 306 10^3/uL (150-450); White Blood Count 16.8 10^3/uL (3.8-11.8)
[2024-07-10 04:37] LABS: Activated Partial Thrombo Time 30.2 seconds (26.0-38.0); INR 1.2 (0.85-1.14)
[2024-07-10 05:02] LABS: Albumin 3.6 g/dL (3.2-5.2); Albumin/Globulin Ratio 1.1 (1-3); Calcium 9.9 mg/dL (8.6-10.3); Creatinine, Serum 2.02 mg/dL (0.51-0.95); Globulin 3.3 g/dL (2-4); Potassium 4.2 mmol/L (3.5-5.0); Total Bilirubin 0.4 mg/dL (0.2-1.0); Total Protein 6.9 g/dL (6.4-8.9); eGFR CKD-EPI 25.1 (>60)
[2024-07-10] MEDS: Lactated Ringers 1000 ml BAG 1,000 ML IV SCH (06:39)
[2024-07-10] MEDS ORDERED: Dextrose 50% Syringe 50 ml 25 GM/50 ML SYRINGE IV PUSH PRN (08:00)
[2024-07-10 14:24] LABS: Urine Appearance Turbid; Urine Bilirubin Negative (Negative); Urine Blood 1+ (Negative); Urine Color Light-Yellow; Urine Glucose Trace (Negative); Urine Ketones Negative (Negative); Urine Nitrite Negative (Negative); Urine Protein 2+ (>=100 mg/dL) (Negative); Urine Specific Gravity 1.016 (1.002-1.030); Urine Urobilinogen Negative (Negative); Urine pH 5.5 (5.0-8.0)
[2024-07-10 14:29] LABS: Urine Bacteria 3+ /HPF (Absent); Urine Red Blood Cell 2+(6-10/hpf) /HPF (0-Trace); Urine Squamous Epithelial Cell Present /HPF (Absent); Urine White Blood Cell 3+(>20/hpf) /HPF (0-Trace)
[2024-07-10] MEDS: cefTRIAXone 1 gm/50 mL D5W 1 GM/50 ML BAG IV SCH (17:06)
[2024-07-11 06:29] LABS: Creatinine, Serum 1.29 mg/dL (0.51-0.95); Potassium 3.5 mmol/L (3.5-5.0)
[2024-07-11 06:53] LABS: Hematocrit 23.1 % (35-45); Hemoglobin 7.9 g/dL (11.5-14.3); Mean Corpuscular Hemoglobin 28.3 pg (27-33); Red Blood Count 2.78 10^6/uL (3.63-4.92); White Blood Count 9.9 10^3/uL (3.8-11.8)
[2024-07-11 07:49] LABS: ABS Lymphocytes 1.3 10^3/uL (1.0-4.8); ABS Monocytes 0.7 10^3/uL (0.0-0.9); ABS Neutrophils 7.8 10^3/uL (1.5-7.6); Eosinophil % 0.5 %; Lymphocyte % 13.6 %; Mean Platelet Volume 9.1 fL (7.5-11.2); Platelet Count 186 10^3/uL (150-450)
[2024-07-11 15:42] LABS: Hematocrit 25.5 % (35-45); Hemoglobin 8.6 g/dL (11.5-14.3); Mean Corpuscular Hemoglobin 27.9 pg (27-33); Mean Corpuscular Hgb Conc 33.5 g/dL (31-36); Mean Platelet Volume 8.9 fL (7.5-11.2); Platelet Count 226 10^3/uL (150-450); Red Blood Count 3.07 10^6/uL (3.63-4.92); Red Cell Distribution Width 15.6 % (12-17); White Blood Count 8.8 10^3/uL (3.8-11.8)
[2024-07-12 09:25] LABS: ABS Eosinophils 0.1 10^3/uL (0.0-0.5); ABS Lymphocytes 0.9 10^3/uL (1.0-4.8); ABS Monocytes 0.4 10^3/uL (0.0-0.9); ABS Neutrophils 5.5 10^3/uL (1.5-7.6); Eosinophil % 1.7 %; Hematocrit 23.6 % (35-45); Hemoglobin 8.1 g/dL (11.5-14.3); Lymphocyte % 12.9 %; Mean Corpuscular Hemoglobin 28.1 pg (27-33); Mean Corpuscular Hgb Conc 34.3 g/dL (31-36); Mean Corpuscular Volume 82.1 fL (80-97); Mean Platelet Volume 8.8 fL (7.5-11.2); Platelet Count 205 10^3/uL (150-450); Red Blood Count 2.87 10^6/uL (3.63-4.92); White Blood Count 6.9 10^3/uL (3.8-11.8)
[2024-07-13 08:58] LABS: Hematocrit 23.8 % (35-45); Mean Corpuscular Hemoglobin 27.4 pg (27-33); Mean Corpuscular Hgb Conc 33.6 g/dL (31-36); Mean Corpuscular Volume 81.5 fL (80-97); Mean Platelet Volume 8.4 fL (7.5-11.2); Platelet Count 240 10^3/uL (150-450); Red Blood Count 2.93 10^6/uL (3.63-4.92); Red Cell Distribution Width 14.8 % (12-17); White Blood Count 6.2 10^3/uL (3.8-11.8)
[2024-07-13 09:21] LABS: Calcium 8.9 mg/dL (8.6-10.3); Creatinine, Serum 1.11 mg/dL (0.51-0.95); Potassium 3.4 mmol/L (3.5-5.0); eGFR CKD-EPI 51.5 (>60)
[2024-07-13] MEDS: Potassium Chlor 20 meq TAB.ER PO ONE (12:57)
[2024-07-14] MEDS: hydrALAZINE 20 mg/ml 1 ML Vial IV IV SLOW PU ONE (00:22)
[2024-07-14 06:36] LABS: Hematocrit 24.6 % (35-45); Hemoglobin 8.3 g/dL (11.5-14.3); Mean Corpuscular Hgb Conc 33.7 g/dL (31-36); Platelet Count 255 10^3/uL (150-450); Red Blood Count 2.97 10^6/uL (3.63-4.92); Red Cell Distribution Width 15.2 % (12-17); White Blood Count 6.4 10^3/uL (3.8-11.8)
[2024-07-14 07:37] LABS: Calcium 9.1 mg/dL (8.6-10.3); Creatinine, Serum 1.18 mg/dL (0.51-0.95); Magnesium 1.5 mg/dL (1.9-2.7); Potassium 4.1 mmol/L (3.5-5.0); eGFR CKD-EPI 47.9 (>60)
[2024-07-15 12:16] LABS: Rapid COVID-19 Molecular Undetected (Undetected)
[2024-07-15 13:52] VITALS: BP 151/71
== END 2024-07-15 15:00 | DRG 872 ==
LOC: ED 16:34 → EDHOLD 16:34 → SUATTDRO 22:06 → MED 07-10 02:48 → SUATTDRO 07-11 11:01
PROVIDERS: ADMIT Hospitalist; ATTEND Internal Medicine

== ENCOUNTER 2024-09-03 23:53 | Inpatient (IN) ==
[2024-09-04 01:14] LABS: ALT 14 U/L (7-52); Albumin 3.7 g/dL (3.5-5.7); Alkaline Phosphatase 100 U/L (35-149); Anion Gap 7 mmol/L (2-16); Blood Urea Nitrogen 81 mg/dL (6-24); CO2 Carbon Dioxide 18 mmol/L (22-32); Calcium 10.9 mg/dL (8.6-10.3); Chloride 108 mmol/L (101-111); Creatinine, Serum 2.62 mg/dL (0.51-0.95); Globulin 3.8 g/dL (2-4); Glucose 161 mg/dL (70-100); Sodium 133 mmol/L (135-145); Total Bilirubin 0.4 mg/dL (0.2-1.0); Total Protein 7.5 g/dL (6.4-8.9); eGFR CKD-EPI 18.4 (>60)
[2024-09-04 03:14] LABS: ABS Eosinophils 0.1 10^3/uL (0.0-0.5); ABS Monocytes 0.4 10^3/uL (0.0-0.9); ABS Neutrophils 6.8 10^3/uL (1.5-7.6); Hematocrit 27.2 % (35-45); Hemoglobin 9.3 g/dL (11.5-14.3); Lymphocyte % 12.4 %; Mean Corpuscular Hemoglobin 28.9 pg (27-33); Mean Corpuscular Hgb Conc 34.1 g/dL (31-36); Mean Corpuscular Volume 84.8 fL (80-97); Mean Platelet Volume 8.6 fL (7.5-11.2); Platelet Count 262 10^3/uL (150-450); Red Blood Count 3.21 10^6/uL (3.63-4.92); Red Cell Distribution Width 17.7 % (12-17); White Blood Count 8.3 10^3/uL (3.8-11.8)
[2024-09-04 03:30] LABS: Potassium Redraw 5.8 mmol/L (3.5-5.0)
[2024-09-04] MEDS: Lactated Ringers 1000 ml BAG 1,000 ML IV ONE ×2 (03:46→05:51)
[2024-09-04 08:18] LABS: Anion Gap 3 mmol/L (2-16); Blood Urea Nitrogen 72 mg/dL (6-24); CO2 Carbon Dioxide 21 mmol/L (22-32); Calcium 10.1 mg/dL (8.6-10.3); Chloride 113 mmol/L (101-111); Creatinine, Serum 2.24 mg/dL (0.51-0.95); Glucose 119 mg/dL (70-100); Sodium 137 mmol/L (135-145); eGFR CKD-EPI 22.2 (>60)
[2024-09-04] MEDS: NS 0.9% 1000 ml BAG 1,000 ML IV ONE (10:32)
[2024-09-04] MEDS ORDERED: Magnesium Hydroxide LIQ 30 ML UDC PO PRN (11:52)
[2024-09-04 12:16] LABS: Creatinine, Serum 2.09 mg/dL (0.51-0.95); Potassium 5.4 mmol/L (3.5-5.0); eGFR CKD-EPI 24.1 (>60)
[2024-09-04] MEDS ORDERED: Dextrose 50% Syringe 50 ml 25 GM/50 ML SYRINGE IV PUSH PRN (12:17)
[2024-09-04] MEDS: TROSPIUM 20 MG PO SCH (12:41)
[2024-09-04] MEDS: NS 0.9% 1000 ml BAG 0 ML IV SCH (12:46)
[2024-09-04] MEDS: NS 0.9% 1000 ml BAG 1,000 ML IV SCH (12:59)
[2024-09-04 13:03] LABS: Urine Appearance Clear; Urine Bilirubin Negative (Negative); Urine Blood Trace (Negative); Urine Color Light-Yellow; Urine Glucose Negative (Negative); Urine Ketones Negative (Negative); Urine Nitrite Negative (Negative); Urine Protein 1+ (>=30 mg/dL) (Negative); Urine Specific Gravity 1.012 (1.002-1.030); Urine Urobilinogen Negative (Negative)
[2024-09-04] MEDS: SODIUM ZIRCONIUM CYCLOSILICATE 5 GM PACKET PO ONE (13:04)
[2024-09-04 13:14] LABS: Urine Bacteria 1+ /HPF (Absent); Urine Red Blood Cell 1+(3-5/hpf) /HPF (0-Trace); Urine Squamous Epithelial Cell Present /HPF (Absent); Urine White Blood Cell 3+(>20/hpf) /HPF (0-Trace)
[2024-09-04 13:46] LABS: C Reactive Protein 18.47 mg/L (<8.01)
[2024-09-04] MEDS: Carbidopa/Levodop 25/100 MG TAB PO SCH (16:31)
[2024-09-04] MEDS: Senna TAB 8.6 mg TAB PO SCH (21:00)
[2024-09-04] MEDS: Heparin 5000 UNITS/ML 1 mL VIAL SUBCUT SCH (21:57)
[2024-09-04 22:04] LABS: Calcium 9.7 mg/dL (8.6-10.3); Creatinine, Serum 2.04 mg/dL (0.51-0.95); Potassium 4.8 mmol/L (3.5-5.0); eGFR CKD-EPI 24.8 (>60)
[2024-09-05] MEDS: Heparin 5000 UNITS/ML 1 mL VIAL SUBCUT SCH (06:03)
[2024-09-05] MEDS: cefTRIAXone 1 gm/50 mL D5W 1 GM/50 ML BAG IV SCH (11:40)
[2024-09-05] MEDS: Lactated Ringers 1000 ml BAG 1,000 ML IV SCH (12:30)
[2024-09-05 20:38] LABS: ABS Eosinophils 0.2 10^3/uL (0.0-0.5); ABS Lymphocytes 1.3 10^3/uL (1.0-4.8); ABS Monocytes 0.2 10^3/uL (0.0-0.9); ABS Neutrophils 2.7 10^3/uL (1.5-7.6); Eosinophil % 3.5 %; Hematocrit 19.9 % (35-45); Hemoglobin 6.6 g/dL (11.5-14.3); Lymphocyte % 29.6 %; Mean Corpuscular Hemoglobin 27.9 pg (27-33); Mean Corpuscular Hgb Conc 32.9 g/dL (31-36); Mean Corpuscular Volume 84.8 fL (80-97); Mean Platelet Volume 8.4 fL (7.5-11.2); Platelet Count 194 10^3/uL (150-450); Red Blood Count 2.35 10^6/uL (3.63-4.92); Red Cell Distribution Width 16.9 % (12-17); White Blood Count 4.4 10^3/uL (3.8-11.8)
[2024-09-05 20:53] LABS: Calcium 9.6 mg/dL (8.6-10.3); Creatinine, Serum 1.78 mg/dL (0.51-0.95); Potassium 4.7 mmol/L (3.5-5.0); eGFR CKD-EPI 29.2 (>60)
[2024-09-06 06:56] LABS: Anion Gap 5 mmol/L (2-16); Blood Urea Nitrogen 39 mg/dL (6-24); CO2 Carbon Dioxide 20 mmol/L (22-32); Calcium 9.4 mg/dL (8.6-10.3); Chloride 115 mmol/L (101-111); Glucose 85 mg/dL (70-100); Magnesium 1.4 mg/dL (1.9-2.7); Phosphorus 2.4 mg/dL (2.5-5.0); Potassium 4.6 mmol/L (3.5-5.0); Sodium 140 mmol/L (135-145); eGFR CKD-EPI 28.8 (>60)
[2024-09-06 07:20] LABS: ABS Eosinophils 0.2 10^3/uL (0.0-0.5); ABS Lymphocytes 1.5 10^3/uL (1.0-4.8); ABS Monocytes 0.3 10^3/uL (0.0-0.9); Eosinophil % 3.8 %; Hematocrit 18.7 % (35-45); Hemoglobin 6.3 g/dL (11.5-14.3); Lymphocyte % 38.1 %; Mean Corpuscular Hemoglobin 28.7 pg (27-33); Mean Corpuscular Hgb Conc 33.8 g/dL (31-36); Mean Corpuscular Volume 84.8 fL (80-97); Mean Platelet Volume 8.1 fL (7.5-11.2); Nucleated Red Blood Cells % 0.1 %/100WBC (0.0-0.8); Platelet Count 175 10^3/uL (150-450); Red Blood Count 2.21 10^6/uL (3.63-4.92); Red Cell Distribution Width 16.9 % (12-17); White Blood Count 3.9 10^3/uL (3.8-11.8)
[2024-09-06 08:12] LABS: % Iron Saturation 19 % (15-55); .Transferrin 169 mg/dL (203-362); AST 12 U/L (13-39); Albumin 2.7 g/dL (3.5-5.7); Albumin/Globulin Ratio 1.2 (1-3); Alkaline Phosphatase 98 U/L (35-149); Globulin 2.3 g/dL (2-4); Indirect Bilirubin 0.2 mg/dL (0.3-1.0); Iron 45 ug/dL (50-212); LDH 118 U/L (140-271); Total Bilirubin 0.2 mg/dL (0.2-1.0); Total Iron Binding Capacity 237 mcg/dL (250-450); Unsaturated Iron Binding 192 ug/dL
[2024-09-06 08:17] LABS: Immature Retic Fraction 0.22
[2024-09-06 08:19] LABS: Corrected Retic Count 0.4 % (0.5-1.5); Hematocrit 19.2 % (35-45); Hematocrit for Retic CNT 19.2 % (35-45); Hemoglobin 6.4 g/dL (11.5-14.3); RBC Retic Count 2.28 10^6/ul (3.63-4.92)
[2024-09-06 08:20] LABS: TSH Ultra Thyroid Stim Horm 0.63 mcIU/mL (0.34-5.60)
[2024-09-06 08:27] LABS: Ferritin 46.6 ng/mL (11-307)
[2024-09-06 08:28] LABS: ALT < 3 U/L (7-52)
[2024-09-06 08:31] LABS: Folate 6.34 ng/mL (5.90-24.80)
[2024-09-06 08:32] LABS: Vitamin B12 1301 pg/mL (180-914)
[2024-09-06 08:43] LABS: Activated Partial Thrombo Time 27.5 seconds (26.0-38.0); INR 1.26 (0.85-1.14)
[2024-09-06] MEDS: Magnesium Sulf 4 GM/100 ML IV 4,000 MG/100 ML BAG IVPB ONE (09:12)
[2024-09-06] MEDS: Cefepime 1 GM in Dextrose 1 GM/50 ML BAG IV SCH (15:50)
[2024-09-06 18:23] LABS: Hematocrit 24.2 % (35-45); Hemoglobin 8.2 g/dL (11.5-14.3)
[2024-09-07 00:39] LABS: Hemoglobin 8.3 g/dL (11.5-14.3)
[2024-09-07 06:07] LABS: ABS Eosinophils 0.2 10^3/uL (0.0-0.5); ABS Lymphocytes 1.1 10^3/uL (1.0-4.8); ABS Monocytes 0.3 10^3/uL (0.0-0.9); ABS Neutrophils 2.6 10^3/uL (1.5-7.6); Eosinophil % 4.5 %; Hematocrit 25.4 % (35-45); Hemoglobin 8.8 g/dL (11.5-14.3); Lymphocyte % 25.9 %; Mean Corpuscular Hgb Conc 34.6 g/dL (31-36); Mean Corpuscular Volume 83.9 fL (80-97); Mean Platelet Volume 8.3 fL (7.5-11.2); Nucleated Red Blood Cells % 0.1 %/100WBC (0.0-0.8); Platelet Count 198 10^3/uL (150-450); Red Blood Count 3.03 10^6/uL (3.63-4.92); Red Cell Distribution Width 16.8 % (12-17); White Blood Count 4.3 10^3/uL (3.8-11.8)
[2024-09-07 06:26] LABS: Calcium 9.7 mg/dL (8.6-10.3); Creatinine, Serum 1.8 mg/dL (0.51-0.95); Magnesium 2.3 mg/dL (1.9-2.7); Potassium 4.6 mmol/L (3.5-5.0); eGFR CKD-EPI 28.8 (>60)
[2024-09-07] MEDS: Ferric Gluconate IV 250 MG in NS 0.9% 250 ml 200 ML IVPB SCH (12:29)
[2024-09-07] MEDS: NS 0.9% 1000 ml BAG 1,000 ML IV SCH (14:17)
[2024-09-08 13:18] LABS: ABS Eosinophils 0.1 10^3/uL (0.0-0.5); ABS Lymphocytes 0.8 10^3/uL (1.0-4.8); ABS Monocytes 0.3 10^3/uL (0.0-0.9); ABS Neutrophils 3.8 10^3/uL (1.5-7.6); ABS Nucleated RBC 0.01 10^3/ul; Eosinophil % 2.5 %; Hematocrit 27.6 % (35-45); Hemoglobin 9.2 g/dL (11.5-14.3); Lymphocyte % 15.1 %; Mean Corpuscular Hemoglobin 27.9 pg (27-33); Mean Corpuscular Hgb Conc 33.2 g/dL (31-36); Mean Platelet Volume 8.2 fL (7.5-11.2); Nucleated Red Blood Cells % 0.1 %/100WBC (0.0-0.8); Platelet Count 190 10^3/uL (150-450); Red Blood Count 3.29 10^6/uL (3.63-4.92)
[2024-09-08 13:49] LABS: Calcium 9.3 mg/dL (8.6-10.3); Creatinine, Serum 1.73 mg/dL (0.51-0.95); Magnesium 1.7 mg/dL (1.9-2.7); Potassium 4.4 mmol/L (3.5-5.0); eGFR CKD-EPI 30.2 (>60)
[2024-09-08] MEDS: Magnesium Sulfate 2 gm BAG 2 GM/50 ML BAG IVPB ONE (14:19)
[2024-09-08] MEDS: Magnesium Sulfate IV 1GM/100ML 1 GM/100 ML BAG IV ONE (16:10)
[2024-09-09 14:19] LABS: ABS Eosinophils 0.2 10^3/uL (0.0-0.5); ABS Lymphocytes 1.2 10^3/uL (1.0-4.8); ABS Monocytes 0.4 10^3/uL (0.0-0.9); ABS Neutrophils 3.4 10^3/uL (1.5-7.6); ABS Nucleated RBC 0.01 10^3/ul; Eosinophil % 4.1 %; Hematocrit 27.6 % (35-45); Hemoglobin 9.1 g/dL (11.5-14.3); Mean Corpuscular Hemoglobin 27.9 pg (27-33); Mean Corpuscular Volume 84.5 fL (80-97); Mean Platelet Volume 8.1 fL (7.5-11.2); Nucleated Red Blood Cells % 0.2 %/100WBC (0.0-0.8); Platelet Count 199 10^3/uL (150-450); Red Blood Count 3.27 10^6/uL (3.63-4.92); Red Cell Distribution Width 16.9 % (12-17); White Blood Count 5.2 10^3/uL (3.8-11.8)
[2024-09-09 14:45] LABS: Calcium 9.4 mg/dL (8.6-10.3); Creatinine, Serum 1.74 mg/dL (0.51-0.95); Potassium 4.1 mmol/L (3.5-5.0)
[2024-09-09] MEDS ORDERED: Ondansetron ODT 4 mg TAB 4 MG TAB SL PRN (17:27)
[2024-09-09] MEDS ORDERED: Morphine ORAL CONCENTRATE 5 MG/0.25 ML ORAL.SYRIN SL PRN (17:51)
[2024-09-10 09:49] VITALS: BP 143/56
[2024-09-10 10:36] LABS: Rapid COVID-19 Molecular Undetected (Undetected)
== END 2024-09-10 12:30 | DRG 872 ==
LOC: EDHOLD 23:53 → ED 23:53 → SUATTDRO 09-04 11:05 → MED 09-04 14:07 → SUATTDRO 09-05 12:00 → MED 09-09 13:48
PROVIDERS: ADMIT Student in an Organized Health Care Education/Training Program; ATTEND Hospitalist